=== PATIENT | female | born 1970 ===

== ENCOUNTER 2025-01-28 13:05 | Outpatient (AMB) | payer MEDICARE, MEDICAID, SELFPAY ==
--- OUTSIDE RECORDS SUMMARY | 2024-04-15 12:00 | XMS_ITS ---
Author Organization [facility] Camila hooker Billing Info Address [address] [place] [address] Care Team Providers Care Furnace Operator And Tender Name Role Phone MELISA SONY Unavailable [phone] NITHYA AMBROSIO Unavailable [phone] REASON FOR VISIT Positive SURI my PCP ran. Horrible joint and nerve pain which isnt received by any OTC or drugs likegabapentin. Patients Insurance: Medicare Encounters Encounter Location Date Provider Diagnosis [id number] [place] [facility] [address] [place] [address] [place], [place] [id number] 04/15/2024 NITHYA AMBROSIO Plan Of Treatment No Information Progress Notes * Amber FINN EDOB:[birth year] (54 yo F)Acc No.[id number]:04/15/2024 PROGRESS NOTE Patient: Amber FINN Provider: Omar AMBROSIO MD :1970 A ge:53 Y S ex:Female Date:04/15/2024 [facility][id number] Address:[address] [place], [place] [id number] Subjective: * Chief Complaints: * 1 . Positive SURI my PCP ran. Horrible joint and nerve pain which isnt received by any OTC or drugs like gabapentin. Patients Insurance: Medicare. * Medical History: Objective: * Vitals: Assessment: Plan: * Treatment: * * This progress note has not b een verified nor is it considered complete until locked and signed by the provider. Sign off status: Pending * Provider: Omar AMBROSIO MD Date: 04/15/2024 Generated for Van arriaga/Renae/Cassie on: 1 04:42 PM EDT
--- NOTE | 2025-01-28 13:08 | HO.SPINEOV ---
Vital Signs 01/28/25 13:21 Height 5 ft 5 in Weight 127 lb BMI 21.1 Intake Visit Reasons: LBP radiating darshan leg pain Intake Note: Ms. Castellanos is here today c/o Low back pain that radiate to both legs. Director Of Business Applications Required: No Allergies No Known Allergies Allergy (Verified 01/28/25 13:22) Physical Exam Vital Signs: BMI result Body Mass Index 21.1 Assessment & Plan Assessment & Plan (1) Leg pain: Code(s): M79.606 - Pain in leg, unspecified Category: Medical Plan Amber is a pleasant 54 year old female who was self referred to our practice today for evaluation of low back pain and diffuse pain throughout her bilateral lower extremities. She reports that this began without any known inciting incident around December of last year. When attempting to describe her pain she runs her hands down the back side top and medial aspect of her legs all the way down towards the feet. She also reports some associated numbness on the lateral aspect of both feet. She reports some associated heaviness in her legs, and states that she is only able to walk or stand for about 10-20 minutes before having to sit down and rest. She also reports some tripping when attempting to ambulate but denies any falls. She has been seen by many different medical practitioners for this issue over the course of the last year so. She states that she has seen at least 5 different rheumatologists who do not think she has an autoimmune disorder, 3 different neurologists who told her she likely has peripheral neuropathy, and 1 neurosurgeon who offered her a laminectomy. She reports that her pain primarily worsens with ambulation, and states that she asked to hunch over when walking to help relieve some of her pain. She has attempted to treat this with multiple different prescribed medications including gabapentin, Lyrica, duloxetine, venlafaxine, carbamazepine, Lexapro, nortriptyline, Flexeril, prednisone, Celebrex, meloxicam. All of these medications that she listed have not been helpful for her. She has also attempted azlx-ozq-ycserat ibuprofen which did provide relief for a period of time, but tanked her GFR down to 60 from 100. She has attempted physical therapy, geriatric personal care aide, cortisone injections, acupuncture in effort to treat this. None of the seem to be particularly effective. She has also tried at least another 50-60 other types conservative therapy is which she brought a list of. Examples include IV ketamine, meditation, and hypnosis. PMH: Hypothyroidism, peripheral neuropathy, Raynaud's phenomenon, history of skin cancer with a resection via Mohs procedure, cubital tunnel release on the left-hand side. Social hx: The patient does not smoke, reports no substance use. Medications: Zofran, vitamin D3, cyclobenzaprine, estradiol, eszopiclone, naltrexone, progesterone, thyroid desiccated, tretinoin. Allergies: NKDA. Physical exam: The patient has about 4/5 strength with bilateral iliopsoas testing. The remainder of her upper and lower extremity strength is 5/5. She has no significant sensational deficits to light touch on examination. She ambulates well with a non spastic nonantalgic gait. She uses no assistive devices to ambulate. Her reflexes are 2+ intact diffusely. (-) De La Cruz's, (-) clonus, (-) bilateral straight leg raise, (-) Maicol's, (-) Anna finger test, (-) Lhermitte's. Imaging review: MRI of the lumbar spine completed at [facility] in August of 2024 shows evidence of very mild levoscoliosis, Schmorl's node on superior endplate of L4, mild-moderate right-sided foraminal stenosis at L4-5. Impression: Amber is a pleasant, complicated, 54-year-old female who comes in today for evaluation of low back pain and diffuse lower extremity pain which has been ongoing at least since December of last year. She has been evaluated by many different medical specialties for this issue. She has been told she has peripheral neuropathy. She has been offered a laminectomy from a neurosurgeon. I do not believe that there is any compression seen on her MRI that would warrant neurosurgical intervention. Generally speaking her MRI is fairly unremarkable from a neurosurgical perspective. I encouraged her to continue to try and find a solution for her continued pain, however I do not think neurosurgery will be the answer in his patient's unfortunate case. Thank you for allowing us to care for your patient. The total time spent with this visit with this patient was 65 minutes reviewing history, physical exam, MRI imaging review, and implementation of treatment plan or further diagnostic testing Franco Milan MD,PhD [facility] Coding Level of Care Code New Pt Level 5 (23762) Diagnoses Leg pain M79.606
[2025-01-28 13:21] VITALS: BMI 21.1
--- OUTSIDE RECORDS SUMMARY | 2025-01-28 16:39 | XMS_ITS | Encounter Summary ---
Author Organization [facility] (historical information prior to 01/03/2025 only) Address [address] [place] [address] Care Team Providers Care Roving Or Yarn Color Checker Name Role Phone Patricia Recinos MD Primary Care Provider [phone] Encounter Details Date Type Department Care Team (Late st Contact Info) Description 11/23/2015 Scan Document - View in Chart Hollis Gannon MD [address] [place] [address] Hollis Gannon MD [address] [place] [address] Social History Tobacco Use Types Packs/Day Years Used Date Smoking Tobacco: Never Comments Unknown Sex and Gender Information Value Date Recorded Sex Assigned at Not on file Legal Sex Female 2:49 PM EST Gender Identity Not on file Sexual Orientation Not on file documented as of this encounter Plan of Treatment Not on file documented as of this encounter Visit Diagnoses Not on filedocumented in this encounter Care Teams Roving Or Yarn Color Checker Relationship Specialty Start Date End Date Patricia Recinos MD [address] [place] [address], [facility] [address] [place] [address] PCP - General Family Medicine 11/12/17 documented as of this encounter
--- OUTSIDE RECORDS SUMMARY | 2025-01-28 16:39 | XMS_ITS | Encounter Summary ---
Author Organization [facility] (historical information prior to 01/03/2025 only) Address [address] [place] [address] Care Team Providers Care Senior Reliability Engineer Name Role Phone Patricia Recinos MD Primary Care Provider [phone] Encounter Details Date Type Department Care Team (Late st Contact Info) Description 12/15/2011 Scan Document - View in Chart Hollis Gannon MD [address] [place] [address] [phone] Hollis Gannon MD [address] [place] [address] Social History Tobacco Use Types Packs/Day Years Used Date Smoking Tobacco: Never Assessed Comments Unknown Sex and Gender Information Value Date Recorded Sex Assigned at Not on file Legal Sex Female 2:49 PM EST Gender Identity Not on file Sexual Orientation Not on file documented as of this encounter Plan of Treatment Not on file documented as of this encounter Visit Diagnoses Not on filedocumented in this encounter Care Teams Senior Reliability Engineer Relationship Specialty Start Date End Date Patricia Recinos MD [address] [place] [address], [facility] [address] [place] [address] PCP - General Family Medicine 11/12/17 documented as of this encounter
--- OUTSIDE RECORDS SUMMARY | 2025-01-28 16:39 | XMS_ITS | Encounter Summary ---
Author Organization [facility] (historical information prior to 01/03/2025 only) Address [address] [place] [address] Care Team Providers Care Lamp Inspector Name Role Phone Patricia Recinos MD Primary Care Provider [phone] Encounter Details Date Type Department Care Team (Late st Contact Info) Description 03/01/2010 Scan Document - View in Chart Hollis Gannon MD [address] [place] [address] [phone] Hollis Gannon MD [address] [place] [address] Social History Tobacco Use Types Packs/Day Years [...] on filedocumented in this encounter Care Teams Lamp Inspector Relationship Specialty Start Date End Date Patricia Recinos MD [address] [place] [address], [facility] [address] [place] [address] PCP - General Family Medicine 11/12/17 documented as of this encounter
--- OUTSIDE RECORDS SUMMARY | 2025-01-28 16:39 | XMS_ITS | Encounter Summary ---
Author Organization [facility] (historical information prior to 01/03/2025 only) Address [address] [place] [address] Care Team Providers Care Tack Driller Name Role Phone Patricia Recinos MD Primary Care Provider [phone] Reason for Visit * Reason Comments Med Refill Encounter Details Date Type Department Care Team (Late st Contact Info) Description 05/18/2023 Refill [facility] [address] [place] [address] Arin Lopes NP [address] [place] [phone] Social History Tobacco Use Types Packs/Day Years Used Date Smoking Tobacco: Never Smokeless Tobacco: Never Alcohol Use Standard Drinks/Week Comments No 0 (1 standard drink = 0.6 oz pur e alcohol) Depression Answer Date Recorded Feeling Down, Depressed, or Hopeless 2 02/10/2020 PHQ-9 Total Score 17 02/10/2020 [place] Scale Score: Not on file 0 Comments Unknown Sex and Gender Information Value Date Recorded Sex Assigned at Not on file Legal Sex Female 2:49 PM EST Gender Identity Not on file Sexual Orientation Not on file Occupation Industry Job Start Date Job End Date unemployed Not on file Not on file Not on file documented as of this encounter Miscellaneous Notes * Telephone Encounter - CLEO López - 05/21/2023 10:57 AM EST She should be getting this from endo since she follows with them, we have no recent thyroid blood work (last was 2021) documented in this encounter Plan of Treatment Not on file documented as of this encounter Visit Diagnoses Not on filedocumented in this encounter Care Teams Tack Driller Relationship Specialty Start Date End Date Patricia Recinos MD [address] [place] [address], [address] [place] [address] PCP - General Family Medicine 11/12/17 documented as of this encounter
--- OUTSIDE RECORDS SUMMARY | 2025-01-28 16:39 | XMS_ITS | Encounter Summary ---
Author Organization [facility] (historical information prior to 01/03/2025 only) Address [address] [place] [address] Care Team Providers Care Nicking Machine Operator Name Role Phone Patricia Recinos MD Primary Care Provider [phone] Encounter Details Date Type Department Care Team (Late st Contact Info) Description 03/12/2023 Telephone [facility] [address] [place] [address] Patricia Recinos MD [address] [place] [address] Social History Tobacco Use Types Packs/Day Years Used Date Smoking Tobacco: Never Smokeless Tobacco: Never Alcohol Use Standard Drinks/Week Comments No 0 (1 standard drink = 0.6 oz pur e alcohol) Depression Answer Date Recorded Feeling Down, Depressed, or Hopeless 2 02/10/2020 PHQ-9 Total Score 17 02/10/2020 [place] Scale Score: Not on file 0 Comments [...] encounter Miscellaneous Notes * Telephone Encounter - Caroline Reilly MA - 03/12/2023 4:17 PM EST LVM for the patient, please ask the patient if she received her Lunesta Prescription. May need to call her insurance for a PA [phone] documented in this encounter Plan of Treatment Not on file documented as of this encounter Visit Diagnoses Not on filedocumented in this encounter Care Teams Nicking Machine Operator Relationship Specialty Start Date End Date Patricia Recinos MD [address] [place] [address], [address] [place] [address] PCP - General Family Medicine 11/12/17 documented as of this encounter
--- OUTSIDE RECORDS SUMMARY | 2025-01-28 16:39 | XMS_ITS | Encounter Summary ---
Author Organization [facility] (historical information prior to 01/03/2025 only) Address [address] [place] [address] Care Team Providers Care Farm Management Supervisor Name Role Phone Patricia Recinos MD Primary Care Provider [phone] Encounter Details Date Type Department Care Team ([facility] st Contact Info) Description 09/25/2016 Lab Requisition [facility] Main Lab [address] [place] [address] PROVIDER NOT IN SYSTEM [address] [place] [address] Social History Tobacco Use Types Packs/Day Years Used Date Smoking Tobacco: Never Alcohol Use Standard Drinks/Week Comments No 0 (1 standard drink = 0.6 oz pur e alcohol) Comments Unknown Sex and Gender Information Value Date Recorded Sex Assigned at Not on file Legal Sex Female 2:49 PM EST Gender Identity Not on file Sexual Orientation Not on file documented as of this encounter Plan of Treatment Not on file documented as of this encounter Visit Diagnoses Not on filedocumented in this encounter Care Teams Farm Management Supervisor Relationship Specialty Start Date End Date Patricia Recinos MD [address] [place] [address], [address] [place] [address] PCP - General Family Medicine 11/12/17 documented as of this encounter
--- OUTSIDE RECORDS SUMMARY | 2025-01-28 16:39 | XMS_ITS | Encounter Summary ---
Author Organization [facility] (historical information prior to 01/03/2025 only) Address [address] [place] [address] Care Team Providers Care Director Of Orthopedics Name Role Phone Patricia Recinos MD Primary Care Provider [phone] Encounter Details Date Type Department Care Team (Late st Contact Info) Description 11/07/2012 Scan Document - View in Chart Hollis Gannon MD [address] [place] [address] [phone] Hollis Gannon MD [address] [place] [address] Social History Tobacco Use Types Packs/Day Years [...] on filedocumented in this encounter Care Teams Director Of Orthopedics Relationship Specialty Start Date End Date Patricia Recinos MD [address] [place] [address], [facility] [address] [place] [address] PCP - General Family Medicine 11/12/17 documented as of this encounter
--- OUTSIDE RECORDS SUMMARY | 2025-01-28 16:39 | XMS_ITS | Encounter Summary ---
Author Organization [facility] (historical information prior to 01/03/2025 only) Address [address] [place] [address] Care Team Providers Care Extended Day Teacher Name Role Phone Patricia Recinos MD Primary Care Provider Encounter Details Date Type Department Care Team (Late st Contact Info) Description 01/09/2012 Scan Document - View in Chart Hollis Gannon MD [address] [place] [address] [phone] Hollis Gannon MD [address] [place] [address] Social History Tobacco Use Types Packs/Day Years [...] on filedocumented in this encounter Care Teams Extended Day Teacher Relationship Specialty Start Date End Date Patricia Recinos MD [address] [place] [address], [facility] [address] [place] [address] PCP - General Family Medicine 11/12/17 documented as of this encounter
--- OUTSIDE RECORDS SUMMARY | 2025-01-28 16:39 | XMS_ITS | Encounter Summary ---
Author Organization [facility] (historical information prior to 01/03/2025 only) Address [address] [place] [address] Care Team Providers Care Gasoline Locomotive Crane Operator Name Role Phone Patricia Recinos MD Primary Care Provider [phone] Encounter Details Date Type Department Care Team (Late st Contact Info) Description 08/07/2014 Scan Document - View in Chart Hollis Gannon MD [address] [place] [address] [phone] Hollis Gannon MD [address] [place] [address] Social History Tobacco Use Types Packs/Day Years [...] on filedocumented in this encounter Care Teams Gasoline Locomotive Crane Operator Relationship Specialty Start Date End Date Patricia Recinos MD [address] [place] [address], [facility] [address] [place] [address] PCP - General Family Medicine 11/12/17 documented as of this encounter
--- OUTSIDE RECORDS SUMMARY | 2025-01-28 16:41 | XMS_ITS | Encounter Summary ---
Author Organization [facility] (historical information prior to 01/03/2025 only) Address [address] [place] [address] Care Team Providers Care Ball Winder Name Role Phone Patricia Recinos MD Primary Care Provider [phone] Encounter Details Date Type Department Care Team (Late st Contact Info) Description 09/20/2016 Lab Requisition [facility] Main Lab [address] [place] [address] Caryn Oliveira PA [address] [place] [address], [address] [place] [address] Bitten or stung by nonvenomous insect and other nonvenomous arthropods, initial encounter Social History Tobacco Use Types Packs/Day Years [...] on file documented as of this encounter Procedures Procedure Name Priority Date/Time Associated Diagnosis Comments LYME DISEASE ANTIBODY WITH RFLX TO BLOT (IGG, IGM) Routine 09/20/2016 1:36 PM EDT Bitten or stung by nonvenomous insect and other nonvenomous arthropods, initial encounter documented in this encounter Results * Lyme disease, western blot (09/20/2016 1:36 PM EDT) Progressive Lyme Not indicated 09/22 3:12 PM EDT JORGE PAYNE Lyme AB Screen (total) <0.90 <0.90 Index 09/22/2016 3:12 PM EDT JORGE PAYNE Comment: Reference ranges: Index Interpretation ----- <0.90 Negative 0.90-1.09 Equivocal >1.09 Positive As recommended by the Food and Drug Aministration (FDA), all samples with positive or equivocal results in a Borrelia burgdorferi antibody EIA (screening) will be tested using a blot method. Positive or equivocal screening test results should not be interpreted as truly positive until verified as such using a supplemental assay (e.g., B. burgdorferi blot). The screening test and/or blot for B. burgdorferi antibodies may be falsely negative in early stages of Lyme disease, including the period when erythema migrans is apparent. Blood Venous blood / Unknown Venipuncture / Unknown 09/20/2016 1:36 PM EDT 09/20/2016 6:33 PM EDT us Caryn GALLO LAB BLOOD ORDERABLES Final Result JORGE JANIAJOHNElsa [address] [facility] [address] [place], [place] , [place] documented in this encounter Visit Diagnoses Diagnosis Bitten or stung by nonvenomous insect and other nonvenomous arthropods, initial encounter documented in this encounter Care Teams Ball Winder Relationship Specialty Start Date End Date Patricia Recinos MD [address] [place] [address], [address] [place] [address] PCP - General Family Medicine 11/12/17 documented as of this encounter
--- OUTSIDE RECORDS SUMMARY | 2025-01-28 16:41 | XMS_ITS | Encounter Summary ---
Author Organization [facility] (historical information prior to 01/03/2025 only) Address [address] [place] [address] Care Team Providers Care Linux Unix Administrator Name Role Phone Patricia Recinos MD Primary Care Provider Encounter Details Date Type Department Care Team (Late st Contact Info) Description 12/14/2022 Telephone [facility] [address] [place] [address] Patricia Recinos MD [address] [place] [address] Social History Tobacco Use Types Packs/Day Years Used Date Smoking Tobacco: Never Smokeless Tobacco: Never Alcohol Use Standard Drinks/Week Comments No 0 (1 standard drink = 0.6 oz pur e alcohol) Depression Answer Date Recorded Feeling Down, Depressed, or Hopeless 2 02/10/2020 PHQ-9 Total Score 17 02/10/2020 [place] Scale Score: Not on file 0 Comments [...] Telephone Encounter - Caroline Reilly MA - 12/14/2022 11:17 AM EDT Pt called to book [employer], all set and booked documented in this encounter Plan of Treatment Not on file documented as of this encounter Visit Diagnoses Not on filedocumented in this encounter Care Teams Linux Unix Administrator Relationship Specialty Start Date End Date Patricia Recinos MD [address] [place] [address], [address] [place] [address] PCP - General Family Medicine 11/12/17 documented as of this encounter
--- OUTSIDE RECORDS SUMMARY | 2025-01-28 16:41 | XMS_ITS | Encounter Summary ---
Author Organization [facility] (historical information prior to 01/03/2025 only) Address [address] [place] [address] Care Team Providers Care Automotive Parts Counter Assistant Name Role Phone Patricia Recinos MD Primary Care Provider [phone] Reason for Visit * Reason Onset Date Comments Med Refill 08/02/2022 Encounter Details Date Type Department Care Team (Late st Contact Info) Description 08/02/2022 Refill [facility] [address] [place] [address] Cleopatra Israel PA [address] [place] [address] Social History Tobacco Use Types Packs/Day Years Used Date Smoking Tobacco: Never Smokeless Tobacco: Never Alcohol Use Standard Drinks/Week Comments No 0 (1 standard drink = 0.6 oz pur e alcohol) Depression Answer Date Recorded Feeling Down, Depressed, or Hopeless 2 02/10/2020 PHQ-9 Total Score 17 02/10/2020 Elliott Scale Score: Not on file 0 Comments [...] on filedocumented in this encounter Care Teams Automotive Parts Counter Assistant Relationship Specialty Start Date End Date Patricia Recinos MD [address] [place] [address], [facility] [address] [place] [address] PCP - General Family Medicine 11/12/17 documented as of this encounter
--- OUTSIDE RECORDS SUMMARY | 2025-01-28 16:41 | XMS_ITS | Encounter Summary ---
Author Organization Chela Mykel Vito [facility] Address [address] [place] [address] Care Team Providers Care Technical Marketing Consultant Name Role Phone Alireza Daniel MD Unavailable [phone] Dayna John NP Primary Care Provider [phone] Karen Gonzalez MD Unavailable Rajeev Stevens MD Unavailable [phone] Nichelle Parks MD Unavailable [phone] Unknown, Provider MD Primary Care Provider Unava ilable Encounter Details Date Type Department Care Team (Late Contact Info) Description 07/26/2023 Lab Requisition [facility] Orders Cleopatra Israel PA [address] [address] Social History Tobacco Use Types Packs/Day Years Used Date Smoking Tobacco: Never Smokeless Tobacco: Never Alcohol Use Standard Drinks/Week Comments No 0 (1 standard drink = 0.6 oz pur e alcohol) Comments No Sex and Gender Information Value Date Recorded Sex Assigned at Not on file Legal Sex Female 6:23 AM EST Gender Identity Not on file Sexual Orientation Not on file 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; 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 Not on file Not on file documented as of this encounter Plan of Treatment Upcoming Encounters Date Type Department Care Team (Late Contact Info) Description 02/02/2025 2:15 PM EST Office Visit [facility] Orthopedics [facility] [address] [place] [address] Anton Treviño MD [address] [place] [phone] [phone] (Work) In Person with Physician documented as of this encounter Visit Diagnoses Not on filedocumented in this encounter Care Teams Technical Marketing Consultant Relationship Specialty Start Date End Date Dayna John, AVIONICS SYSTEM ENGINEER [address] [place] [address] PCP - General Family Practice 10/15/18 12/18/24 Unknown, Provider, [address] [place] [address] PCP - General 12/19/24 Alireza Daniel MD [address] [place] [address] Internal Medicine 03/28/12 Karen Gonzalez MD [address] [place] [address] Family Practice 09/01/23 Rajeev Stevens MD [address] [place] [address] Family Practice 07/04/17 Nichelle Parks MD [address] [place] [address] Family Practice 09/01/23 documented as of this encounter
--- OUTSIDE RECORDS SUMMARY | 2025-01-28 16:41 | XMS_ITS | Encounter Summary ---
Author Organization Chela Padron [facility] Address [address] [place] [address] Care Team Providers Care Exchange Consultant Name Role Phone Alireza Daniel MD Unavailable [phone] Karen Gonzalez MD Unavailable Rajeev Stevens MD Unavailable [phone] Nichelle Parks MD Unavailable [phone] Unknown, Provider MD Primary Care Provider Unava ilable Reason for Visit * Reason Comments Medication Refill Encounter Details Date Type Department Care Team ([facility] Contact Info) Description 01/25/2025 Refill [facility], [address] [address] Saul Bowling MD [address] [place] [address] Social History Tobacco Use Types Packs/Day Years Used Date Smoking Tobacco: Never Smokeless Tobacco: Never Alcohol Use Standard Drinks/Week Comments No 0 (1 standard drink = 0.6 oz pur e alcohol) AUDIT C Answer Date Recorded How often have you had a dri nk containing alcohol, in the past year? 0 10/24/2024 Not on file 10/24/2024 How often have you had six o r more drinks on one occasion, in the past year? 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 Not on file Not on file documented as of this encounter Plan of Treatment Upcoming Encounters Date Type Department Care Team (Late st Contact Info) Description 02/02/2025 2:15 PM EST Office Visit [facility] Orthopedics [facility] [address] [place] [address] Anton Treviño MD [address] [place] [phone] (Work) In Person with Physician documented as of this encounter Visit Diagnoses Not on filedocumented in this encounter Care Teams Exchange Consultant Relationship Specialty Start Date End Date Unknown, Provider, [address] [place] [address] PCP - General 12/19/24 Alireza Daniel MD [address] [place] [address] Internal Medicine 03/28/12 Karen Gonzalez MD [address] [place] [address] Family Practice 09/01/23 Rajeev Stevens MD [address] [place] [address] Family Practice 07/04/17 Nichelle Parks MD [address] [place] [address] Family Practice 09/01/23 documented as of this encounter
--- OUTSIDE RECORDS SUMMARY | 2025-01-28 16:41 | XMS_ITS | Encounter Summary ---
Author Organization Chela Padron [facility] Address [address] [place] [address] Care Team Providers Care Ice Sculptor Name Role Phone Alireza Daniel MD Unavailable [phone] Karen Gonzalez MD Unavailable Rajeev Stevens MD Unavailable [phone] Nichelle Parks MD Unavailable [phone] Unknown, Provider MD Primary Care Provider Unava ilable Reason for Visit * Reason Onset Date Comments Medication Refill 01/26/2025 Encounter Details Date Type Department Care Team (Late st Contact Info) Description 01/26/2025 Refill [facility], [address] [address] Hetal Oakes [place] Social History Tobacco Use Types Packs/Day Years [...] 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; 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 Not on file Not on file documented as of this encounter Miscellaneous Notes * Telephone Encounter - Hetal Oakes [place] - 01/26/2025 1:21 PM EDT Pharmacy is requesting a script refill documented in this encounter Plan of Treatment Upcoming Encounters Date Type Department Care Team (Late st Contact Info) Description 02/02/2025 2:15 PM EST [facility] [address] [facility], 2nd [place] [address] Anton Treviño MD [address] [place] [phone] (Work) In Person with Physician documented as of this encounter Visit Diagnoses Not on filedocumented in this encounter Care Teams Ice Sculptor Relationship Specialty Start Date End Date Unknown, Provider, [address] [place] [address] PCP - General 12/19/24 Alireza Daniel MD 2 [place] [address] Internal Medicine 03/28/12 Karen Gonzalez MD [address] [place] [address] Family Practice 09/01/23 Rajeev Stevens MD [address] [place] [address] Family Practice 07/04/17 Nichelle Parks MD [address] [place] [address] Family Practice 09/01/23 documented as of this encounter
--- OUTSIDE RECORDS SUMMARY | 2025-01-28 16:41 | XMS_ITS | Encounter Summary ---
Author Organization Chela Padron [facility] Address [address] [place] [address] Care Team Providers Care Elevator Constructor Name Role Phone Alireza Daniel MD Unavailable [phone] Karen Gonzalez MD Unavailable Rajeev Stevens MD Unavailable [phone] Nichelle Parks MD Unavailable Unknown, Provider MD Primary Care Provider Unava ilable Reason for Visit * Reason Onset Date Comments Medication Refill 01/27/2025 Encounter Details Date Type Department Care Team (Late st Contact Info) Description 01/27/2025 Refill [facility], [address] [address] Patricia Recinos MD [address] [place] [address] Intrinsic eczema (Primary Dx) Social History Tobacco Use Types Packs/Day Years [...] 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, 2nd [place] [address] Anton Treviño MD [address] [phone] (Work) In Person with Physician documented as of this encounter Visit Diagnoses Diagnosis Intrinsic eczema- Primary documented in this encounter Care Teams Elevator Constructor Relationship Specialty Start Date End Date Unknown, Provider, [address] [place] [address] PCP - General 12/19/24 Alireza Daniel MD [address] [place], [place] [phone] Internal Medicine 03/28/12 Karen Gonzalez MD [address] [place] [address] Family Practice 09/01/23 Rajeev Stevens MD [address] [place] [address] Family Practice 07/04/17 Nichelle Parks MD [address] [place] [address] Family Practice 09/01/23 documented as of this encounter
--- OUTSIDE RECORDS SUMMARY | 2025-01-28 16:41 | XMS_ITS | Clinical Summary ---
Author Organization Chelabrandon Padron [facility] Address [address] [place] [address] Care Team Providers Care Shutdown Planner Name Role Phone Alireza Daniel MD Unavailable [phone] Karen Gonzalez MD Unavailable Rajeev Stevens MD Unavailable [phone] Nichelle Parks MD Unavailable [phone] Unknown, Provider MD Primary Care Provider Unava ilable Allergies No known active allergies Medications ARMOUR THYROID 60 mg Tab tablet Take 1 tablet (60 mg total) by mouth daily. 90 tablet 3 05/12/19 22 Active prasterone, dhea, (DHEA) 25 mg Tab Take by mouth. Activ e progesterone (PROMETRIUM) 100 MG capsule Take 1 capsule (100 mg total) by mouth at bedtime. 90 capsule 3 11/11/19 23 Active estradioL (CLIMARA) 0.05 mg/[address] 1 patch on the skin once a week. 12 patch 3 06/25/19 24 Active cyanocobalamin (vitamin B-12) 50 mcg tablet Take 1 tablet (50 mcg total) by mouth daily. Active bromelains 100 mg Chew Chew. Active omega-3 fatty acids/fish oil (fish oil-omega-3 fatty acids) 300-1,000 mg capsule Take 2 capsules (2 g total) by mouth daily. Active celecoxib (CeleBREX) 50 MG capsule Take 1 capsule (50 mg total) by mouth 2 times a day. Active Boswellia anali-turmer ic xt 100-500 mg cap Take by mouth. Activ e eszopiclone (LUNESTA) 2 MG TabIndications :Sleep disorder, unspecified TAKE 1 TABLET BY MOUTH NIGHTLY. TAKE IMMEDIATELY BEFORE BEDTIME 30 tablet 01/15/20 25 Active tretinoin (RETIN-A) 0.1 % creamIndicatio ns:Intrinsic eczema Apply topically at bedtime. 20 g 1 01/28/20 25 Active cyclobenzaprin e (FLEXERIL) 10 MG tabletIndicati ons:Polyneurop athy, unspecified,Ri ght shoulder pain, unspecified chronicity Take 1 tablet (10 mg total) by mouth as needed for muscle spasms. 20 tablet 01/28/20 25 Active eszopiclone (LUNESTA) 2 MG Tab Take 1 tablet (2 mg total) by mouth at bedtime. 15 tablet 0 03/05/20 15 025 Discontinued cyclobenzaprin e (FLEXERIL) 10 MG tablet TAKE 1/2 TO 1 TABLET BY MOUTH DAILY DIRECTED 20 tablet 01/03/20 19 025 Discontinued(R eorder) tretinoin (RETIN-A) 0.1 % cream APPLY TOPICALLY TO THE AFFECTED AREA ONE TIME AT NIGHT 025 Discontinued(R eorder) Active Problems Problem Noted Date Diagnosed Date Hypoglycemia 06/20/2022 Menopausal symptoms 06/20/2022 Post-menopause on HRT (hormone replacement thera py) 12/17/2017 Intrinsic eczema 08/04/2016 Vitamin D deficiency 08/04/2016 Hereditary hemochromatosis 08/04/2016 Overview (01/16/2022): Question history of Insomnia 03/03/2014 Hypothyroidism 02/09/2014 Anxiety 07/28/2012 Depression 07/16/2012 Resolved Problems Problem Noted Date Diagnosed Date Resolved Date Menopause 08/08/2016 01/16/2022 Decreased testosterone level 02/29/2016 06/20/2022 Mixed emotional features as adjustment reaction 01/30/2014 01/16/2022 Encounters Date Type Department Care Team Description 01/27/2025 [facility], [address] [address] Patricia Recinos MD Polyneuropathy, unspecified (Primary Dx); Right shoulder pain, unspecified chronicity 01/27/2025 Refill [facility], [address] [address] Patricia Recinos MD Intrinsic eczema (Primary Dx) 01/26/2025 Refill [facility], [address] [address] Hetal Oakes [place] 01/25/2025 Refill [facility], [address] [address] Saul Bowling MD 01/11/2025 Refill [facility], [address] [address] Saul Bowling MD Sleep disorder, unspecified from Last 3 Months Immunizations Immunization Administration Dates Next Due Hep B, Unspecified 12/18/2003 Hepatitis B 11/06/2002 PPD Test 09/08/2015 TD Preservative Free 10/10/2006,11/09/1995 Tdap Vaccine (BOOSTRIX/ADACEL) 10/17/2012 Family History Medical History Relation Comments Prostate cancer Father Skin cancer Maternal Aunt melanoma Hypertension Mother Osteoporosis Mother Skin cancer Paternal Grandfather melanoma Skin cancer Paternal Uncle melanoma Relation Status Comments Father Alive Maternal Aunt Mother Alive Paternal Grandfather Paternal Uncle Social History Tobacco Use Types Packs/Day Years [...] 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; 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 Not on file Not on file Last Filed Vital Signs Vital Sign Reading Time Taken Comments Blood Pressure 127/84 03/19/2024 2:52 PM EST Pulse 102 03/19/2024 2:52 PM EST Temperature 36.7 C (98.1 F) 02/20/2024 9:57 AM EST Respiratory Rate 16 02/23/2018 11:43 AM EST Oxygen Saturation 97% 03/19/2024 2:52 PM EST Inhaled Oxygen Concentration - - Weight 55.2 kg (121 lb 9.6 oz) 10/24/2024 2:16 P M EDT Height 165.1 cm (5' 5 ) 10/24/2024 2:16 PM EDT Body Mass Index 20.24 10/24/2024 2:16 PM EDT Plan of Treatment Upcoming Encounters Date Type Department Care Team (Late st Contact Info) Description 02/02/2025 2:15 PM EST Office Visit [facility] Orthopedics [facility] [address] [facility], 2nd [place] [address] Anton Treivño MD [address] [place] [phone] (Work) In Person with Physician Health Maintenance Due Date Last Done Comments Depression Screening 1974 Hepatitis C Screening 1988 Pap Smear 06/22/1991 Cervical Cancer Screening 2000 HPV/Cotest 2000 Medicare Initial AWV [id number] 05/31/2008 Breast Cancer Screening 2010 CT Colonography 06/22/2015 Colonoscopy 06/22/2015 Colorectal Cancer Screening 06/22/2015 FIT 06/22/2015 FOBT 06/22/2015 Multitarget Stool DNA (Cologuard) 06/22/2015 Sigmoidoscopy 06/22/2015 Pneumococcal Vaccine: 50+ Years (1 of 1 - PCV) 2020 Zoster Vaccine (1 of 2) 2020 DTaP,Tdap,and Td Vaccines (4 - Td or Tdap) 10/17/2022 10/17/2012, 10/10/2006, 11/09/1995 TSH Level 07/25/2024 07/26/2023, 12/31, 02/04/2018, Additional history exists COVID-19 Vaccine ( season) 2024 08/31/2021 Influenza Vaccine (#1) 2024 Blood Pressure 03/19/2025 03/19/2024 Lipid Panel 07/25/2028 07/26/2023, 09/08/2015 Meningococcal B Vaccines Aged Out No longer eligible based on patient's age to complete this topic Meningococcal Vaccines Aged Out No lo nger eligible based on patient's age to complete this topic Procedures Procedure Name Priority Date/Time Associated Diagnosis Comments LIPID PANEL Routine 07/26/2023 3:59 PM EDT Encounter for screening, unspecified TSH REFLEX FRT4,T3 Routine 07/26/2023 3: 59 PM EDT Encounter for screening, unspecified [ICD-10-CM] from Last 3 Months or Most Recently Relevant to Health Maintenance Results * Thyroid Profile (07/26/2023 3:59 PM EDT) TSH 2.86 0.35 - 4.94 uIU/mL 07/27/2023 12:30 PM EDT [facility] Blood PERIPHERAL NERVOUS SYSTEM STRUCTURE / Unknown 07/26/2023 3:59 PM EDT 07/26/2023 8:00 PM EDT us Patriica Recinos MD LAB BLOOD ORDERABLES Final R esult [facility] [address] [place] [address], * Lipid Panel (07/26/2023 3:59 PM EDT) Cholesterol 176 <200 mg/dL [facility] [id number] 07/26/2023 9:07 PM EDT [facility] Triglycerides 70 <150 mg/dL [facility] [id number] 07/26/2023 9:07 PM EDT [facility] HDL Cholesterol 61 >40 mg/dL [facility] [id number] 07/26/2023 9:07 PM EDT [facility] LDL Cholesterol 101 <130 mg/dL [facility] [id number] 07/26/2023 9:07 PM EDT [facility] Comment: LDL-C Treatment Targets LDL-C mg/dL High Risk (20%) <100 optional for very high risk (optional <70) Mod Risk (2 high factors <20%) <130 optional for very high risk (optional <100) Low Risk (0-1 Risk factor) <160 Non-HDL Cholesterol 115 <160 mg/dL [facility] [id number] 07/26/2023 9:07 PM EDT [facility] Comment: NON-HDL-c Treatment Targets Non-HDL C, mg/dL High Risk (20%) <130 Optional for very high risk (optional <100) Mod Risk (2 high factors <20%) <160 Optional for very high risk (optional <130) Low Risk (0-1 Risk Factor) <190 NON-HDL Chol= Total Cholesterol-HDL Chol goal <160 VLDL Cholesterol 14 8 - 71 mg/dL [facility] [id number] 07/26/2023 9:07 PM EDT [facility] Ratio Chol/HDL 2.9 0.0 - 4.4 [facility] [id number] 07/26/2023 9:07 PM EDT [facility] Comment: Risk Ratio Estimate 1/2 Avg. 2X 3X Male 3.4 5.0 9.6 23.4 Female 3.4 4.4 7.1 11.0 Blood PERIPHERAL NERVOUS SYSTEM STRUCTURE / Unknown 07/26/2023 3:59 PM EDT 07/26/2023 8:00 PM EDT us Patricia Recinos MD LAB BLOOD ORDERABLES Final R esult [facility] [address] [place] [address], from Last 3 Months or Most Recently Relevant to Health Maintenance Insurance MEDICARE Member Subscriber Plan / Payer (Ef fective 2007-Present) Name:Amber Castellanos Member ID:[id number] Relation to Subscriber:Self Name:Amber Castellanos Subscriber ID:[id number] Payer ID:Not on file Group ID:Not on file Type:Traditional / Indemnity Address: [address] [place] [address] [place] [address] MEDICARE Advance Directives Documents on File Type Date Recorded Patient Movable Bulkhead Installer Expl anation DNR Documentation 06/12/2024 9:06 AM Docum ent (17).PDF MOLST/POLST 06/12/2024 9:06 AM Document ( 11).PDF Health Care Proxy 06/03/2024 6:47 PM Docume nt (13).PDF MOLST/POLST 06/03/2024 6:44 PM Document (1 1).PDF DNR Documentation 06/03/2024 6:43 PM Docume nt (17).PDF Health Care Proxy 03/05/2024 1:49 PM [place]IS: [place] Health Care Proxy MOLST/POLST 03/05/2024 1:45 PM LUIS: MOLST [place] Medical Orders for Life-Sustaning Treatment Health Care Proxy 01/19/2022 1:33 PM Heal th Care Proxy Healthcare Agents on File Name Relationship Healthcare Agent [facility] Communication Eddie Romero Father Health Care Agent Care Teams Shutdown Planner Relationship Specialty Start Date End Date Unknown, Provider, [address] [place] [address] PCP - General 12/19/24 Alireza Daniel MD [address] [place] [address] Internal Medicine 03/28/12 Karen Gonzalez MD [address] [place] [address] Family Practice 09/01/23 Rajeev Stevens MD [address] [place] [address] Family Practice 07/04/17 Nichelle Parks MD [address] [place] [address] Family Practice 09/01/23
--- OUTSIDE RECORDS SUMMARY | 2025-01-28 16:41 | XMS_ITS | Encounter Summary ---
Author Organization [facility] Address [address] [place] [address] Care Team Providers Care Airport Ramp Agent Name Role Phone Ulysses Pal Primary Care Provider [phone] Araceli Rodriguez SYSTEMS SUPPORT OFFICER Unavailable [phone] Venessa Tracy HEMATOLOGIST Unavailable Encounter Details Date Type Department Care Team (Late st Contact Info) Description 11/14/2024 Orders Only [facility] [address] [place] [address] Ulysses Pal PA [address] [place] [address] Social History Tobacco Use Types Packs/Day Years Used Date Smoking Tobacco: Never Passive Smoke Exposure: Past Smokeless Tobacco: Never Alcohol Use Standard Drinks/Week Comments No 0 (1 standard drink = 0.6 oz pur e alcohol) PHQ-2 Answer Date Recorded Patient Health Questionnaire-2 Score 2 03/03/2024 PHQ-9 Answer Date Recorded Patient Health Questionnaire-9 Score 12 03/03/2024 Comments No Sex and Gender Information Value Date Recorded Sex Assigned at Female 12/28/2023 11:03 AM EDT Legal Sex Female 2:37 PM EDT Gender Identity Female 12/28/2023 11:03 AM EDT Sexual Orientation Not on file documented as of this encounter Plan of Treatment Upcoming Encounters Date Type Department Care Team (Latest Contact Info) Description 02/17/2025 1:00 PM EST Consult (Initial) [facility] [address] [place] [address] Mirna Butts NP [address] [place] [address] urinary freqancy, burning, incontinence, numbness, prolapse 03/04/2025 4:00 PM EST Office Visit [facility] Orthopedic Surgery [address] [facility] [address] [place] [address] Ildefonso Knox MD [address] [place] [address] Sy TPI 3 month l/s 12/03 documented as of this encounter Visit Diagnoses Diagnosis Dysuria documented in this encounter Care Teams Airport Ramp Agent Relationship Specialty Start Date End Date Ulysses Pal PA [address] [place] [address] PCP - General Internal Medicine 12/28/23 Araceli Rodriguez, [facility] [address] [place] [address] Partner 02/11/24 Venessa Tracy NP [address] [place] [address] Partner 04/07/24 documented as of this encounter
--- OUTSIDE RECORDS SUMMARY | 2025-01-28 16:41 | XMS_ITS | Encounter Summary ---
Author Organization [facility] (historical information prior to 01/03/2025 only) Address [address] [place] [address] Care Team Providers Care High School Science Teacher Name Role Phone Patricia Recinos MD Primary Care Provider [phone] Encounter Details Date Type Department Care Team (Late st Contact Info) Description 09/25/2016 Billing Encounter [facility] [address] [place] [address] Hollis Doll MD [address] [place] [address] Social History Tobacco Use Types Packs/Day Years [...] on filedocumented in this encounter Care Teams High School Science Teacher Relationship Specialty Start Date End Date Patricia Recinos MD [address] [place] [address], [address] [place] [address] PCP - General Family Medicine 11/12/17 documented as of this encounter
--- OUTSIDE RECORDS SUMMARY | 2025-01-28 16:41 | XMS_ITS | Encounter Summary ---
Author Organization [facility] (historical information prior to 01/03/2025 only) Address [address] [place] [address] Care Team Providers Care Butter Production Supervisor Name Role Phone Patricia Recinos MD Primary Care Provider [phone] Encounter Details Date Type Department Care Team (Late st Contact Info) Description 09/25/[address] [facility] Main Lab [address] [place] [phone] PROVIDER NOT IN SYSTEM [address] [place] [address] Pcp, None, [address] [place] [address] Disorder of pituitary gland (CMS/HCC) Social History Tobacco Use Types Packs/Day Years [...] Procedure Name Priority Date/Time Associated Diagnosis Comments GOLD TOP Routine 09/25/2016 5:30 PM EDT Disorder of pituitary gland (CMS/HCC) RED TOP Routine 09/25/2016 5:30 PM EDT Disorder of pituitary gland (CMS/HCC) VITAMIN D 25 HYDROXY Routine 09/25/2016 5:30 PM EDT Disorder of pituitary gland (CMS/HCC) PROLACTIN Routine 09/25/2016 5:30 PM EDT Disorder of pituitary gland (CMS/HCC) DHEA-SULFATE Routine 09/25/2016 5:30 PM EDT Disorder of pituitary gland (CMS/HCC) ESTRADIOL Routine 09/25/2016 5:30 PM EDT Disorder of pituitary gland (CMS/HCC) THYROGLOBULIN ANTIBODIES Routine 09/25/2016 5:30 PM EDT Disorder of pituitary gland (CMS/HCC) TESTOSTERONE, FREE (DIALYSIS) AND TOTAL, MS Routine 09/25/2016 5:30 PM EDT Disorder of pituitary gland (CMS/HCC) T3, FREE Routine 09/25/2016 5:30 PM EDT Disorder of pituitary gland (CMS/HCC) TSH WITH REFLEX Routine 09/25/2016 5:30 PM EDT Disorder of pituitary gland (CMS/HCC) T4, FREE Routine 09/25/2016 5:30 PM EDT Disorder of pituitary gland (CMS/HCC) LUTEINIZING HORMONE Routine 09/25/2016 5 :30 PM EDT Disorder of pituitary gland (CMS/HCC) FOLLICLE STIMULATING HORMONE Routine 09/25/2016 5:30 PM EDT Disorder of pituitary gland (CMS/HCC) HC HEPATIC FUNCTION PANEL Routine 09/25/2016 5:30 PM EDT Disorder of pituitary gland (CMS/HCC) BASIC METABOLIC PANEL Routine 09/25/2016 5:30 PM EDT Disorder of pituitary gland (CMS/HCC) documented in this encounter Results * Red Top (09/25/2016 5:30 PM EDT) Blood Venous blood / Unknown 09/25/2016 5:30 PM EDT 09/25/2016 5:30 PM EDT us None Pcp LAB BLOOD ORDERABLES Final Resul t [facility] [address] [place] [address], [place] [phone] * Gold Top (09/25/2016 5:30 PM EDT) Blood Venous blood / Unknown 09/25/2016 5:30 PM EDT 09/25/2016 5:30 PM EDT us None Pcp MD LAB BLOOD ORDERABLES Final Resul t Performing Organization Address City/[facility]/ZIP Co de Phone Number [facility] [address] [place] [address], [place] [phone] * Vitamin D 25 hydroxy (09/25/2016 5:30 PM EDT) VITAMIN D 25 HYDROXY 45 30 - 100 ng/mL 09/25/2016 6:27 PM EDT [facility] Blood Venous blood / Unknown 09/25/2016 5:30 PM EDT 09/25/2016 5:30 PM EDT us None Pcp MD LAB BLOOD ORDERABLES Final Resul t Performing Organization Address [facility] Co de Phone Number [facility] [address] [place] [address], [place] [phone] * TSH (09/25/2016 5:30 PM EDT) Thyroid Stimulating Hormone 1.400 0.465 - 4.68 uIU/mL 09/25/2016 6:41 PM EDT [facility] Blood Venous blood / Unknown 09/25/2016 5:30 PM EDT 09/25/2016 5:30 PM EDT us None Pcp MD LAB BLOOD ORDERABLES Final Resul t Performing Organization Address [facility] Co de Phone Number [facility] [address] [place] [address], [place] [phone] * Anti-thyroglobulin antibody (09/25/2016 5:30 PM EDT) Thyroglobulin Abs <1 <=1 IU/mL 017 7:44 AM EDT JORGE PAYNE Blood Venous blood / Unknown 09/25/2016 5:30 PM EDT 09/25/2016 5:30 PM EDT us None Pcp LAB BLOOD ORDERABLES Final Resul t Performing Organization Address City/[facility]/ZIP Co de Phone Number JOR[facility] PAYNE [address] [facility] [place] [place] [address], [place] * Prolactin (09/25/2016 5:30 PM EDT) PROLACTIN 19.9 3 - 31 ng/mL 09/25/2016 6:27 PM EDT [facility] Blood Venous blood / Unknown 09/25/2016 5:30 PM EDT 09/25/2016 5:30 PM EDT us None Pcp LAB BLOOD ORDERABLES Final Resul t Performing Organization Address [facility] de Phone Number [facility] [address] [place] [address], [place] [phone] * Follicle stimulating hormone (09/25/2016 5:30 PM EDT) FSH 10.10 mIU/mL 09/25/2016 6:27 PM EDT [facility] Comment: FSH Reference Ranges 1.98 - 11.6 Desiree/mL (Normal Folliculary) 5.14 - 23.4 mIU/mL (Normal Midcyle Peak) 1.38 - 9.58 mIU/mL (Normal Luteal Phase) 21.5 - 131 mIU/mL (Post Menopausal) Blood Venous blood / Unknown 09/25/2016 5:30 PM EDT 09/25/2016 5:30 PM EDT us None Pcp LAB BLOOD ORDERABLES Final Resul t Performing Organization Address [facility]/ZIP Co de Phone Number [facility] [address] [place] [address], [place] [phone] * Estradiol (09/25/2016 5:30 PM EDT) [facility] ESTRADIOL 34.95 pg/mL 09/25/2016 6:41 PM EDT [facility] Comment: Estradiol Reference range: 26.6 - 161 pg/mL (Normal Folliculary) 187 - 382 pg/mL (Normal Pre-Ovulatory Peak) 32.7 - 201 pg/mL (Normal Luteal Phase) 5.37 - 38.4 pg/mL (Postmenopausal) Drugs of estradiol derivatives can interfere with estradiol measurement by immunoassay, resulting in falsely elevated estradiol results. (As noted in the Vitros E2 instructions for use) Blood Venous blood / Unknown 09/25/2016 5:30 PM EDT 09/25/2016 5:30 PM EDT us None Pcp LAB BLOOD ORDERABLES Final Resul t [facility] [address] [place] [address], [place] [phone] * Hepatic function panel (09/25/2016 5:30 PM EDT) [facility] Protein, Total 6.8 6.3 - 8.2 g/dL 09/25/2016 6:08 PM EDT [facility] ALBUMIN 4.2 3.5 - 5.0 g/dL 09/25/2016 6:08 PM EDT [facility] Bilirubin Total 0.7 0.2 - 1.3 mg/dL 09/25/2016 6:08 PM EDT [facility] BILIRUBIN DIRECT 0.2 0.0 - 0.4 mg/dL 09/25/2016 6:08 PM EDT [facility] AST (SGOT) 32 15 - 46 U/L 09/25/2016 6:08 PM EDT [facility] ALT 32 13 - 69 U/L 09/25/2016 6:08 PM EDT [facility] ALKALINE PHOSPHATASE 78 38 - 126 U/L 09/25/2016 6:08 PM EDT [facility] Blood Venous blood / Unknown 09/25/2016 5:30 PM EDT 09/25/2016 5:30 PM EDT us None Pcp LAB BLOOD ORDERABLES Final Resul t Performing Organization Address City/[facility]/ZIP Co de Phone Number [facility] [address] [place] [address], [place] [phone] * (ABNORMAL) Basic metabolic panel (09/25/2016 5:30 PM EDT) Sodium 140 137 - 145 mmol/L 09/25/2016 6:08 PM EDT [facility] Potassium 4.3 3.5 - 5.1 mmol/L 09/25/2016 6:08 PM EDT [facility] CHLORIDE 102 98 - 107 mmol/L 09/25/2016 6:08 PM EDT [facility] CARBON DIOXIDE, TOTAL 27.0 22.0 - 30.0 mmol/L 09/25/2016 6:08 PM EDT [facility] ANION GAP 11.0 6 - 14 09/25/2016 6:08 PM EDT [facility] GLUCOSE 80 70 - 99 mg/dL 09/25/2016 6:08 PM EDT [facility] BUN 22(H) 7 - 17 mg/dL 09/25/2016 6:08 PM EDT [facility] CREATININE 0.9 0.5 - 1.0 mg/dL 09/25/2016 6:08 PM EDT [facility] GFR >60 09/25/2016 6:08 PM EDT [facility] Comment: eGFR Reference Range: > 60 mL/min/1.73 Sq meter In Americans the eGFR should be multiplied by 1.212. CALCIUM 9.4 8.3 - 10.3 mg/dL 09/25/2016 6:08 PM EDT [facility] Blood Venous blood / Unknown 09/25/2016 5:30 PM EDT 09/25/2016 5:30 PM EDT us None Pcp LAB BLOOD ORDERABLES Final Resul t [facility] [address] [place] [address], [place] [phone] * Testosterone, free, total (09/25/2016 5:30 PM EDT) Pathologist [facility] % Free Testosterone 1.3 0.1 - 6.4 pg/mL 09/27/2016 7:42 PM EDT J[facility] PAYNE Comment: This test was developed and its analytical performance characteristics have been determined by [employer] [place]. It has not been cleared or approved by the U.S. Food and Drug Administration. This assay has been validated pursuant to the CLIA regulations and is used for clinical purposes. Testosterone, Total, MS 20 2 - 45 ng/dL 09/27/2016 7:42 PM EDT [facility] PAYNE Comment: For more information on this test, go to http://education.[employer]/faq/ TotalTestosteroneLCMSMS This test was developed and its analytical performance characteristics have been determined by [employer] [place] [place]. It has not been cleared or approved by the U.S. Food and Drug Administration. This assay has been validated pursuant to the CLIA regulations and is used for clinical purposes. Blood Venous blood / Unknown 09/25/2016 5:30 PM EDT 09/25/2016 5:30 PM EDT us None Pcp LAB BLOOD ORDERABLES Final Resul t JORGE PAYNE [address] [facility] [address] [place], [place] , [place] * T4, free (09/25/2016 5:30 PM EDT) Pathologist [facility] Free T4 0.95 0.78 - 2.19 ng/dL 09/25/2016 6:26 PM EDT [facility] Blood Venous blood / Unknown 09/25/2016 5:30 PM EDT 09/25/2016 5:30 PM EDT us None Pcp MD LAB BLOOD ORDERABLES Final Resul t [facility] [address] [place] [address], * T3, free (09/25/2016 5:30 PM EDT) T3, Free 3.07 2.77 - 5.27 pg/mL 09/25/2016 6:34 PM EDT [facility] Blood Venous blood / Unknown 09/25/2016 5:30 PM EDT 09/25/2016 5:30 PM EDT us None Pcp MD LAB BLOOD ORDERABLES Final Resul t Performing Organization Address City/[facility]/ZIP Co de Phone Number [facility] [address] [place] [address], * DHEA-sulfate (09/25/2016 5:30 PM EDT) Pathologist [facility] DHEA Sulfate 102 19 - 231 mcg/dL 09/27/2016 1:23 PM EDT [facility] PAYNE Comment: DHEA-S values fall with advancing age. For reference, the reference intervals for 31-40 year old patients are: Female 23-266 mcg/dL and Male 106-464 mcg/dL. Blood Venous blood / Unknown 09/25/2016 5:30 PM EDT 09/25/2016 5:30 PM EDT us None Pcp LAB BLOOD ORDERABLES Final Resul t Performing Organization Address [facility] de Phone Number JORGE DYKESJOHNElsa [address] [facility] [address] [place], [place] , * Luteinizing hormone (09/25/2016 5:30 PM EDT) Luteinizing Hormone 4.5 mIU/mL 09/25/2016 6:27 PM EDT [facility] Comment: LH Reference Ranges 2.58 - 12.1 mIU/mL (Normal Follicular) 27.3 - 96.9 mIU/mL (Normal Midcycle Peak) 0.833 - 15.5 mIU/mL (Normal Luteal Phase) 13.1 - 86.5 mIU/mL (Post Menopausal) Blood Venous blood / Unknown 09/25/2016 5:30 PM EDT 09/25/2016 5:30 PM EDT us None Pcp MD LAB BLOOD ORDERABLES Final Resul t [facility] [address] [place] [address], documented in this encounter Visit Diagnoses Diagnosis Disorder of pituitary gland (CMS/HCC) Unspecified disorder of the pituitary gland and its hypothalamic control documented in this encounter Care Teams Butter Production Supervisor Relationship Specialty Start Date End Date Patricia Recinos MD [address] [place] [address], [address] [place] [address] PCP - General Family Medicine 11/12/17 documented as of this encounter
--- OUTSIDE RECORDS SUMMARY | 2025-01-28 16:41 | XMS_ITS | Encounter Summary ---
Author Organization [facility] Address [address] [place] [address] [address] Care Team Providers Care Ecommerce Project Manager Name Role Phone Alireza Daniel Md Primary Care Provider [phone] Poc, Non [facility] Pcp Or Primary Care Provider Esperanza vailable Encounter Details Date Type Department Care Team (Late st Contact Info) Description 10/26/2016 [facility] Obstetrics and Gynecology [address] [place] [phone] Obg Social History Tobacco Use Types Packs/Day Years Used Date Smoking Tobacco: Never Smokeless Tobacco: Never Alcohol Use Standard Drinks/Week Comments No 0 (1 standard drink = 0.6 oz pur e alcohol) Comments No Sex and Gender Information Value Date Recorded Sex Assigned at Female 04/25/2021 1:52 PM EST Legal Sex Female 4:27 AM EDT Gender Identity Female 04/25/2021 1:52 PM EST Sexual Orientation Straight 01/06/2022 5: 50 PM EDT documented as of this encounter Plan of Treatment Not on file documented as of this encounter Visit Diagnoses Not on filedocumented in this encounter Care Teams Ecommerce Project Manager Relationship Specialty Start Date End Date Alireza Daniel MD [address] [place] [address] PCP - General Internal Medicine 03/18/12 06/10/22 Poc, Non [facility] Pcp Or PCP - General 06/11/22 documented as of this encounter
--- OUTSIDE RECORDS SUMMARY | 2025-01-28 16:41 | XMS_ITS | Encounter Summary ---
Author Organization [facility] (historical information prior to 01/03/2025 only) Address [address] [place] [address] Care Team Providers Care Industrial Chemist Name Role Phone Patricia Recinos MD Primary Care Provider [phone] Encounter Details Date Type Department Care Team (Late st Contact Info) Description 09/25/2016 Scan Document - View in Chart Hollis Gannon MD [address] [place] [address] [phone] Hollis Gannon MD [address] [place] [phone] Social History Tobacco Use Types Packs/Day Years [...] on filedocumented in this encounter Care Teams Industrial Chemist Relationship Specialty Start Date End Date Patricia Recinos MD [address] [place] [address], [address] [place] [address] PCP - General Family Medicine 11/12/17 documented as of this encounter
--- OUTSIDE RECORDS SUMMARY | 2025-01-28 16:41 | XMS_ITS | Encounter Summary ---
Author Organization [facility] Address [address] [place] [address] [address] Care Team Providers Care Display Screen Fabricator Name Role Phone Alireza Daniel Md Primary Care Provider [phone] Poc, Non [facility] Pcp Or Primary Care Provider Esperanza vailable Encounter Details Date Type Department Care Team (Late st Contact Info) Description 12/26/2016 [facility] Obstetrics and Gynecology [address] [place] [phone] Obg Social History Tobacco Use Types [...] on filedocumented in this encounter Care Teams Display Screen Fabricator Relationship Specialty Start Date End Date Alireza Daniel MD [address] [place] [address] PCP - General Internal Medicine 03/18/12 06/10/22 Poc, Non [facility] Pcp Or PCP - General 06/11/22 documented as of this encounter
--- OUTSIDE RECORDS SUMMARY | 2025-01-28 16:41 | XMS_ITS | Encounter Summary ---
Author Organization [facility] (historical information prior to 01/03/2025 only) Address [address] [place] [address] Care Team Providers Care Senior Software Tester Name Role Phone Patricia Recinos MD Primary Care Provider [phone] Encounter Details Date Type Department Care Team (Late st Contact Info) Description 11/04/2018 Procedure Pass [facility] MRI [address] [place] [phone] Social History Tobacco Use Types Packs/Day Years [...] filedocumented in this encounter Care Teams Senior Software Tester Relationship Specialty Start Date End Date Patricia Recinos MD [address] [place] [address], [address] [place] [address] PCP - General Family Medicine 11/12/17 documented as of this encounter
--- OUTSIDE RECORDS SUMMARY | 2025-01-28 16:41 | XMS_ITS | Encounter Summary ---
Author Organization [facility] (historical information prior to 01/03/2025 only) Address [address] [place] [address] Care Team Providers Care It Applications Analyst Name Role Phone Patricia Recinos MD Primary Care Provider Reason for Visit * Reason Onset Date Comments Med Refill 04/19/2022 Encounter Details Date Type Department Care Team (Late st Contact Info) Description 04/19/2022 Refill [facility] [address] [place] [address] Sowmya Ramírez MD [address] [place] [phone] Social History Tobacco Use Types Packs/Day Years Used Date Smoking Tobacco: Never Smokeless Tobacco: Never Alcohol Use Standard Drinks/Week Comments No 0 (1 standard drink = 0.6 oz pur e alcohol) Depression Answer Date Recorded Feeling Down, Depressed, or Hopeless 2 02/10/2020 PHQ-9 Total Score 17 02/10/2020 [place] Scale Score: Not on file 0 Comments [...] on filedocumented in this encounter Care Teams It Applications Analyst Relationship Specialty Start Date End Date Patricia Recinos MD [address] [place] [address] [address] [place] [address] PCP - General Family Medicine 11/12/17 documented as of this encounter
--- OUTSIDE RECORDS SUMMARY | 2025-01-28 16:41 | XMS_ITS | Encounter Summary ---
Author Organization [facility] (historical information prior to 01/03/2025 only) Address [address] [place] [address] Care Team Providers Care Structures Technician Name Role Phone Patricia Recinos MD Primary Care Provider [phone] Encounter Details Date Type Department Care Team (Late st Contact Info) Description 03/09/2022 [facility] [address] [place] [address] Patricia Recinos MD [address] [place] [address] Social History Tobacco Use Types Packs/Day Years Used Date Smoking Tobacco: Never Smokeless Tobacco: Never Alcohol Use Standard Drinks/Week Comments No 0 (1 standard drink = 0.6 oz pur e alcohol) Depression Answer Date Recorded Feeling Down, Depressed, or Hopeless 2 02/10/2020 PHQ-9 Total Score 17 02/10/2020 [place] Scale Score: Not on file 0 Comments Unknown Sex and Gender Information Value Date Recorded Sex Assigned at Not on file Legal Sex Female 2:49 PM EST Gender Identity Not on file Sexual Orientation Not on file Occupation Industry Job Start Date Job End Date unemployed Not on file Not on file Not on file COVID-19 Exposure Response Date Recorded In the last 10 days, have yo u been in contact with someone who was confirmed or suspected to have Coronavirus/COVID-19? No / Unsure 02/08/2022 11:07 AM EST documented as of this encounter Plan of Treatment Not on file documented as of this encounter Visit Diagnoses Not on filedocumented in this encounter Care Teams Structures Technician Relationship Specialty Start Date End Date Patricia Recinos MD [address] [place] [address], [facility] [address] [place] [address] PCP - General Family Medicine 11/12/17 documented as of this encounter
--- OUTSIDE RECORDS SUMMARY | 2025-01-28 16:41 | XMS_ITS | Encounter Summary ---
Author Organization [facility] (historical information prior to 01/03/2025 only) Address [address] [place] [address] Care Team Providers Care Settlement Technician Name Role Phone Patricia Recinos MD Primary Care Provider [phone] Reason for Visit * Reason Comments Med Refill Encounter Details Date Type Department Care Team ([facility] st Contact Info) Description 03/24/2022 Refill [facility] [address] [place] [address], [address] [place] [address] Caryn Oliveira PA [address] [place] [address], [address] [place] [address] Social History Tobacco Use Types Packs/Day Years Used Date Smoking Tobacco: Never Smokeless Tobacco: Never Alcohol Use Standard Drinks/Week Comments No 0 (1 standard drink = 0.6 oz pur e alcohol) Depression Answer Date Recorded Feeling Down, Depressed, or Hopeless 2 02/10/2020 PHQ-9 Total Score 17 02/10/2020 [place] Scale Score: Not on file 0 Comments [...] encounter Miscellaneous Notes * Telephone Encounter - July MD Desiree - 03/24/2022 9:40 AM EST Please confirm dose also has 60 mg on file for the thryoid medication documented in this encounter Plan of Treatment Not on file documented as of this encounter Visit Diagnoses Not on filedocumented in this encounter Care Teams Settlement Technician Relationship Specialty Start Date End Date Patricia Recinos MD [address] [place] [address], [address] [place] [address] PCP - General Family Medicine 11/12/17 documented as of this encounter
--- OUTSIDE RECORDS SUMMARY | 2025-01-28 16:41 | XMS_ITS | Encounter Summary ---
Author Organization [facility] (historical information prior to 01/03/2025 only) Address [address] [place] [address] Care Team Providers Care Costume Mistress Name Role Phone Patricia Recinos MD Primary Care Provider [phone] Encounter Details Date Type Department Care Team (Late st Contact Info) Description 10/18/2022 Telephone [facility] [address] [place] [phone] Patricia Recinos MD [address] [place] [address] Social History Tobacco Use Types Packs/Day Years Used Date Smoking Tobacco: Never Smokeless Tobacco: Never Alcohol Use Standard Drinks/Week Comments No 0 (1 standard drink = 0.6 oz pur e alcohol) Depression Answer Date Recorded Feeling Down, Depressed, or Hopeless 2 02/10/2020 PHQ-9 Total Score 17 02/10/2020 [place] Scale Score: Not on file 0 Comments [...] on filedocumented in this encounter Care Teams Costume Mistress Relationship Specialty Start Date End Date Patricia Recinos MD [address] [place] [address] PCP - General Family Medicine 11/12/17 documented as of this encounter
--- OUTSIDE RECORDS SUMMARY | 2025-01-28 16:41 | XMS_ITS | Encounter Summary ---
Author Organization [facility] Address [address] [place] [address] Care Team Providers Care Wood Carver Hand Name Role Phone Alireza Daniel MD Unavailable [phone] Karen Gonzalez MD Unavailable Rajeev Stevens MD Unavailable [phone] Nichelle Parks MD Unavailable [phone] Unknown, Provider MD Primary Care Provider Unava ilable Reason for Visit * Reason Onset Date Comments Medication Refill 01/27/2025 Encounter Details Date Type Department Care Team (Late st Contact Info) Description 01/27/2025 Refill [facility], [address] [address] Patricia Recinos MD [address] [place] [address] Polyneuropathy, unspecified (Primary Dx); Right shoulder pain, unspecified chronicity Social History Tobacco Use Types Packs/Day Years [...] 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, [address] [place] [address] Anton Treviño MD [address] [place] [phone] (Work) In Person with Physician documented as of this encounter Visit Diagnoses Diagnosis Polyneuropathy, unspecified- Primary Right shoulder pain, unspecified chronicity documented in this encounter Care Teams Wood Carver Hand Relationship Specialty Start Date End Date Unknown, Provider, [address] [place] [address] PCP - General 12/19/24 Alireza Daniel MD [address] [place] [address] Internal Medicine 03/28/12 Karen Gonzalez MD [address] [place] [address] Family Practice 09/01/23 Rajeev Stevens MD [address] [place] [address] Family Practice 07/04/17 Nichelle Parks MD [address] [place] [address] Family Practice 09/01/23 documented as of this encounter
--- OUTSIDE RECORDS SUMMARY | 2025-01-28 16:41 | XMS_ITS | Encounter Summary ---
Author Organization Chela Padron [facility] Address [address] [place] [address] Care Team Providers Care Call Center Support Consultant Name Role Phone Alireza Daniel MD Unavailable [phone] Dayna John NP Primary Care Provider [phone] Karen Gonzalez MD Unavailable Rajeev Stevens MD Unavailable [phone] Nichelle Parks MD Unavailable [phone] Unknown, Provider MD Primary Care Provider Unava ilable Encounter Details Date Type Department Care Team (Late Contact Info) Description 07/26/2023 Lab Requisition [facility] Orders Patricia Recinos MD [address] [place] [phone] Encounter for screening, unspecified Social History Tobacco Use Types Packs/Day Years [...] 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; 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 Not on file Not on file documented as of this encounter Plan of Treatment Upcoming Encounters Date Type Department Care Team (Late st Contact Info) Description 02/02/2025 2:15 PM EST Office Visit [facility] Orthopedics [facility] [address] [place] [address] Anton Treviño MD [address] [place] [address] -[phone] (Work) In Person with Physician documented as of this encounter Procedures Procedure Name Priority Date/Time Associated Diagnosis Comments CBC AND DIFFERENTIAL Routine 07/26/2023 3:59 PM EDT Encounter for screening, unspecified VITAMIN D,25OH Routine 07/26/2023 3:59 PM EDT Encounter for screening, unspecified TSH REFLEX FRT4,T3 Routine 07/26/2023 3: 59 PM EDT Encounter for screening, unspecified [ICD-10-CM] TIBC PROFILE Routine 07/26/2023 3:59 PM EDT Encounter for screening, unspecified C-REACTIVE PROTEIN Routine 07/26/2023 3: 59 PM EDT Encounter for screening, unspecified TOTAL T3 Routine 07/26/2023 3:59 PM EDT Encounter for screening, unspecified T4, FREE Routine 07/26/2023 3:59 PM EDT Encounter for screening, unspecified [ICD-10-CM] FERRITIN Routine 07/26/2023 3:59 PM EDT Encounter for screening, unspecified LIPID PANEL Routine 07/26/2023 3:59 PM EDT Encounter for screening, unspecified COMPREHENSIVE METABOLIC PANEL Routine 07/26/2023 3:59 PM EDT Encounter for screening, unspecified documented in this encounter Results * Thyroid Profile (07/26/2023 3:59 PM EDT) TSH 2.86 0.35 - 4.94 uIU/mL 07/27/2023 12:30 PM EDT [facility] Blood PERIPHERAL NERVOUS SYSTEM STRUCTURE / Unknown 07/26/2023 3:59 PM EDT 07/26/2023 8:00 PM EDT Patricia Recinos MD LAB BLOOD ORDERABLES Final R esult Performing Organization Address City/[facility]/ZIP Co de Phone Number [facility] [address] [place] [address], * T4, Free (07/26/2023 3:59 PM EDT) [facility] Free Thyroxine 0.7 0.7 - 1.5 ng/dL 07/27/2023 12:30 PM EDT [facility] Blood PERIPHERAL NERVOUS SYSTEM STRUCTURE / Unknown 07/26/2023 3:59 PM EDT 07/26/2023 8:00 PM EDT Patricia Recinos MD LAB BLOOD ORDERABLES Final R esult Performing Organization Address [facility] de Phone Number [facility] [address] [place] [address], [place] [phone] * Vitamin D, 25-OH (07/26/2023 3:59 PM EDT) Pathologist [facility] `Vitamin D 25-OH Level 77 >30 ng/mL 07/26/2023 9:14 PM EDT [facility] Comment: Deficient: <20 ng/ml Borderline: 20-29 ng/ml Sufficient: 30-100 ng/ml Potential for Toxicity: >100 ng/ml Reference range change based on recommendations from the Endocrine Society Clinical Practice Guidelines, [employer] [place] [employer] 25-OH Vitamin D assay measures Vitamin D1, D2 and D3, however, it may under-recover Vitamin D2. If the Vitamin D results are inconsistent with clinical evidence, particularly in those patients taking Vitamin D2 supplementation (Ergocalciferol), additional testing is suggested to confirm the result. NOTE: Vitamin D3 (Cholecalciferol) supplementation has been shown to be at least equivalent to Vitamin D2. (source: Yusuf; AM J Clin Nutrition; 95:1357) Blood PERIPHERAL NERVOUS SYSTEM STRUCTURE / Unknown 07/26/2023 3:59 PM EDT 07/26/2023 8:00 PM EDT Patricia Recinos MD LAB BLOOD ORDERABLES Final R esult Performing Organization Address City/[facility]/ZIP Co de Phone Number [facility] [address] [place] [address], * Total T3 (07/26/2023 3:59 PM EDT) Total T3 89.0 58.0 - 159.0 ng/dL 07/26/2023 9:12 PM EDT [facility] Blood PERIPHERAL NERVOUS SYSTEM STRUCTURE / Unknown 07/26/2023 3:59 PM EDT 07/26/2023 8:00 PM EDT Patricia Recinos MD LAB BLOOD ORDERABLES Final R esult Performing Organization Address City/[facility] Co de Phone Number [facility] [address] [place] [address], * Lipid Panel (07/26/2023 3:59 PM EDT) Cholesterol 176 <200 mg/dL [facility] [id number] 07/26/2023 9:07 PM EDT [facility] Triglycerides 70 <150 mg/dL [facility] [id number] 07/26/2023 9:07 PM EDT [facility] HDL Cholesterol 61 >40 mg/dL [facility] [id number] 07/26/2023 9:07 PM EDT [facility] LDL Cholesterol 101 <130 mg/dL [facility] [id number] 07/26/2023 9:07 PM EDT [facility] Comment: LDL-C Treatment Targets LDL-C mg/dL High Risk (20%) <100 optional for very high risk (optional <70) Mod Risk (2 high factors <20%) <130 optional for very high risk (optional <100) Low Risk (0-1 Risk factor) <160 Non-HDL Cholesterol 115 <160 mg/dL [facility] [id number] 07/26/2023 9:07 PM EDT [facility] Comment: NON-HDL-c Treatment Targets Non-HDL C, mg/dL High Risk (20%) <130 Optional for very high risk (optional <100) Mod Risk (2 high factors <20%) <160 Optional for very high risk (optional <130) Low Risk (0-1 Risk Factor) <190 NON-HDL Chol= Total Cholesterol-HDL Chol goal <160 VLDL Cholesterol 14 8 - 71 mg/dL [facility] [id number] 07/26/2023 9:07 PM EDT [facility] Ratio Chol/HDL 2.9 0.0 - 4.4 [facility] [id number] 07/26/2023 9:07 PM EDT [facility] Comment: Risk Ratio Estimate 1/2 Avg. 2X 3X Male 3.4 5.0 9.6 23.4 Female 3.4 4.4 7.1 11.0 Blood PERIPHERAL NERVOUS SYSTEM STRUCTURE / Unknown 07/26/2023 3:59 PM EDT 07/26/2023 8:00 PM EDT Patricia Recinos MD LAB BLOOD ORDERABLES Final R esult [facility] [address] [place] [address], * TIBC Profile (07/26/2023 3:59 PM EDT) Iron,Serum/Plasm a 162 50 - 170 ug/dL [facility] [id number] 07/26/2023 9:07 PM EDT [facility] TIBC 303 250 - 450 ug/dL [facility] [id number] 07/26/2023 9:07 PM EDT [facility] Iron Saturation % 53 15 - 60 % [facility] [id number] 07/26/2023 9:07 PM EDT [facility] Unsaturated Iron Binding Capacity 141 126 - 382 ug/dL [facility] [id number] 07/26/2023 9:07 PM EDT [facility] Blood PERIPHERAL NERVOUS SYSTEM STRUCTURE / Unknown 07/26/2023 3:59 PM EDT 07/26/2023 8:00 PM EDT Patricia Recinos MD LAB BLOOD ORDERABLES Final R esult Performing Organization Address City/[facility]/ZIP Co de Phone Number [facility] [address] [place] [address], [place] [phone] * Ferritin (07/26/2023 3:59 PM EDT) Pathologist [facility] Ferritin 88 5 - 204 ng/mL 07/26/2023 9:14 PM EDT [facility] Blood PERIPHERAL NERVOUS SYSTEM STRUCTURE / Unknown 07/26/2023 3:59 PM EDT 07/26/2023 8:00 PM EDT Patricia Recinos MD LAB BLOOD ORDERABLES Final R esult Performing Organization Address [facility] Co de Phone Number [facility] [address] [place] [address], [place] [phone] * (ABNORMAL) Comprehensive Metabolic Panel (07/26/2023 3:59 PM EDT) [facility] Sodium 138 134 - 144 mmol/L [address] 07/26/2023 9:07 PM EDT [facility] Potassium 4.2 3.2 - 5.1 mmol/L [address] 07/26/2023 9:07 PM EDT [facility] Comment:Samples tested in [facility] may exhibit a higher potassium value than those tested on plasma. Our current range is based on plasma testing. Chloride 106 97 - 109 mmol/L [facility] [id number] 07/26/2023 9:07 PM EDT [facility] Total CO2/Bicarbonate 22 20 - 32 mmol/L [facility] [id number] 07/26/2023 9:07 PM EDT [facility] Anion Gap 10 5 - 15 mmol/L [facility] [id number] 07/26/2023 9:07 PM EDT [facility] BUN 19 7 - 20 mg/dL [place] [id number] 07/26/2023 9:07 PM EDT [facility] Creatinine, Blood 1.00 0.60 - 1.10 mg/dL [address] 07/26/2023 9:07 PM EDT [facility] Glucose, Blood 109 70 - 110 mg/dL [address] 07/26/2023 9:07 PM EDT [facility] Calcium 9.0 8.5 - 10.5 mg/dL [address] 07/26/2023 9:07 PM EDT [facility] Total Protein 7.0 6.1 - 8.2 g/dL [address] 07/26/2023 9:07 PM EDT [facility] Albumin, Blood 4.0 3.4 - 5.0 g/dL [address] 07/26/2023 9:07 PM EDT [facility] Globulin Result 3.0 2.5 - 4.3 g/dL [address] 07/26/2023 9:07 PM EDT [facility] AST (SGOT) 22 15 - 37 U/L [address] 07/26/2023 9:07 PM EDT [facility] ALT (SGPT) 19 0 - 55 U/L [address] 07/26/2023 9:07 PM EDT [facility] Alkaline Phosphatase 77 40 - 150 U/L [address] 07/26/2023 9:07 PM EDT [facility] Total Bilirubin 0.6 0.2 - 1.2 mg/dL [address] 07/26/2023 9:07 PM EDT [facility] Estimated GFR (MDRD) 58(L) >=60 mL/min/BSA [address] 07/26/2023 9:07 PM EDT [facility] Blood PERIPHERAL NERVOUS SYSTEM STRUCTURE / Unknown 07/26/2023 3:59 PM EDT 07/26/2023 8:00 PM EDT us Patricia Recinos MD LAB BLOOD ORDERABLES Final R esult [facility] [address] [place] [address], * C-Reactive Protein (07/26/2023 3:59 PM EDT) Pathologist [facility] C-Reactive Protein (CRP) 0.3 <5.0 mg/L [facility] [id number] 07/26/2023 9:17 PM EDT [facility] Blood PERIPHERAL NERVOUS SYSTEM STRUCTURE / Unknown 07/26/2023 3:59 PM EDT 07/26/2023 8:00 PM EDT Patricia Recinos MD LAB BLOOD ORDERABLES Final R esult [facility] [address] [place] [address], * CBC and Differential (07/26/2023 3:59 PM EDT) [facility] WBC 6.09 4.00 - 11.00 K/uL 07/26/2023 8:30 PM EDT [facility] RBC 4.31 4.00 - 5.20 M/uL 07/26/2023 8:30 PM EDT [facility] Hemoglobin 14.6 12.0 - 15.0 g/dL 07/26/2023 8:30 PM EDT [facility] Hematocrit 40.9 36.0 - 45.0 % 07/26/2023 8:30 PM EDT [facility] MCV 95 82 - 98 fL 07/26/2023 8:30 PM EDT [facility] RDW 12.5 11.5 - 15.0 % 07/26/2023 8:30 PM EDT [facility] Platelet Count 250 150 - 450 K/uL 07/26/2023 8:30 PM EDT [facility] Neutrophil 60.4 % 07/26/2023 8:30 PM EDT [facility] Lymphocyte 29.9 % 07/26/2023 8:30 PM EDT [facility] Monocyte 8.0 % 07/26/2023 8:30 PM EDT [facility] Eosinophil 0.7 % 07/26/2023 8:30 PM EDT [facility] Basophil 0.7 % 07/26/2023 8:30 PM EDT [facility] Immature Granulocyte (Evergreen, Myelo, Promyelocyte) 0.3 % 07/26/2023 8:30 PM EDT [facility] Absolute Neutrophil Count 3.68 1.50 - 7.70 K/uL 07/26/2023 8:30 PM EDT [facility] Absolute Lymphocyte Count 1.82 1.00 - 5.00 K/uL 07/26/2023 8:30 PM EDT [facility] Absolute Monocyte Count 0.49 0.10 - 1.00 K/uL 07/26/2023 8:30 PM EDT [facility] Absolute Eosinophil Count 0.04 0.00 - 0.70 K/uL 07/26/2023 8:30 PM EDT [facility] Absolute Basophil Count 0.04 0.00 - 0.20 K/uL 07/26/2023 8:30 PM EDT [facility] Absolute Immature Granulocyte (Evergreen, Myelo, Promyelocyte) 0.02 0.00 - 0.09 K/uL 07/26/2023 8:30 PM EDT [facility] MCH 33.9 23.0 - 37.0 pg 07/26/2023 8:30 PM EDT [facility] MCHC 35.7 29.0 - 38.0 g/dL 07/26/2023 8:30 PM EDT [facility] MPV 9.3 8.0 - 14.0 fL 07/26/2023 8:30 PM EDT [facility] Blood PERIPHERAL NERVOUS SYSTEM STRUCTURE / Unknown 07/26/2023 3:59 PM EDT 07/26/2023 8:00 PM EDT us Patricia Recinos MD LAB BLOOD ORDERABLES Final R esult Performing Organization Address City/State/[facility] Co de Phone Number [facility] [address] [place] [address], documented in this encounter Visit Diagnoses Diagnosis Encounter for screening, unspecified documented in this encounter Care Teams Call Center Support Consultant Relationship Specialty Start Date End Date Dayna John NP [address] [place] [address] PCP - General Family Practice 10/15/18 12/18/24 Unknown, Provider, [address] [place] [address] PCP - General 12/19/24 Alireza Daniel MD [address] [place] [address] Internal Medicine 03/28/[address] [facility] [address] Family Practice 09/01/[address] [facility] [address] [address] Family Practice 07/04/[address] [facility] [address] [address] Family Practice 09/01/23 documented as of this encounter
--- OUTSIDE RECORDS SUMMARY | 2025-01-28 16:41 | XMS_ITS | Encounter Summary ---
Author Organization [facility] Address [address] [place] [address] [address] Care Team Providers Care Healthcare Science Specialist Name Role Phone Alireza Daniel Md Primary Care Provider [phone] Poc, Non Atrius Pcp Or Primary Care Provider Esperanza vailable Reason for Visit * Reason Onset Date Comments RX Renewal 02/06/2020 Encounter Details Date Type Department Care Team (Late st Contact Info) Description 02/06/2020 [facility] [address] [place] [phone] Alireza Daniel MD [address] [place] [address] RX RENEWAL Social History Tobacco Use Types Packs/Day Years [...] on filedocumented in this encounter Care Teams Healthcare Science Specialist Relationship Specialty Start Date End Date Alireza Daniel MD [address] [place] [address] PCP - General Internal Medicine 03/18/12 06/10/22 Poc, Non Atrius Pcp Or PCP - General 06/11/22 documented as of this encounter
--- OUTSIDE RECORDS SUMMARY | 2025-01-28 16:41 | XMS_ITS | Clinical Summary ---
Author Organization [employer] Address [address] [place] [address] [address] Care Team Providers Care Incident Response Lead Name Role Phone Poc, Non Atrius Pcp Or Primary Care Provider Esperanza vailable Allergies No known active allergies Medications * This document contains information received from the source organization and may not represent a complete record from that organization. ARIPiprazole (ABILIFY) 5 mg tablet Take 1 tablet by mouth daily Prescribed by psychiatrist 0 6 Active nortriptyline 25 mg capsule Take 1 capsule by mouth at bedtime Prescribed by psychaitry 0 6 Active multivitamin tablet Take by mouth Active ARMOUR THYROID 60 mg tablet Take 90 mg by mouth daily 7 Active tretinoin 0.1 % Cream Apply to the affected area 9 Active buPROPion (WELLBUTRIN SR) 150 mg tablet sustained-relea se 12 hr SR 12 HRIndications:P rescription refill,Other depression TAKE 1 TABLET BY MOUTH TWICE DAILY. DO NOT. STOP WITHOUT CONSULTING CLINICIAN 60 tablet 0 Active cholecalciferol , vitamin D3, 25 mcg (1,000 unit) capsule Take by mouth daily Active triamcinolone 0.1 % CreamIndication s:Prescription refill APPLY EXTERNALLY TO THE AFFECTED AREA TWICE DAILY 15 gram 1 Active cyclobenzaprine 10 mg tabletIndicatio ns:Muscle spasm,Prescript ion refill TAKE 1/2 TO 1 TABLET BY MOUTH EVERY 8 HOURS NEEDED FOR MUSCLE SPASM. NO MORE THAN 3 TABLET A DAY 20 tablet 2 Active albuterol HFA 90 mcg/actuation HFA Aerosol InhalerIndicati ons:Acute cough,Reactive airway disease without asthma Inhale 2 puffs as instructed every 4-6 hours as needed; rinse mouthpiece at least weekly. (Dispense generic, Ventolin, or Proventil per payor) 1 each 3 2 Active fluticasone propionate (FLOVENT HFA) 110 mcg/actuation HFA Aerosol InhalerIndicati ons:Acute cough,Reactive airway disease without asthma Inhale 2 puffs twice daily and rinse your mouth thoroughly afterward (Dispense generic or brand based on insurance) 12 gram 5 2 Active benzonatate (TESSALON) 100 mg capsuleIndicati ons:Acute cough Take 1 capsule by mouth three times daily as needed for cough 30 capsule 2 Active fluticasone propionate 50 mcg/actuation [place], SuspensionIndic ations:Post-ángel al drip Apply 1-2 sprays to each nostril daily ; dispense OTC if lowest cost for patient 16 gram 2 2 Active ketoconazole (NIZORAL) 2 % Shampoo Shampoo, rinse & repeat; use twice per week for 4 weeks, then as needed 120 mL 3 Active eszopiclone (LUNESTA) 2 mg tabletIndicatio ns:Prescription refill TAKE 1 TABLET BY MOUTH AT BEDTIME FOR INSOMNIA. OVERDUE FOR PHYSICAL AND LABWORK. 30 tablet 3 Active levonorgestrel- ethinyl estradiol (LESSINA) 0.1-20 mg-mcg tablet Take 1 tablet by mouth daily 84 tablet 4 3 Active Active Problems Problem Noted Date Diagnosed Date Polyuria 05/04/2021 Overview (01/12/2022): Evaluation by Dr Enid Berger ? 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 Salt wasting nephropathy, trial of indocin Was advised referal to [facility] 12/2021: has followed by Urology in the past- no changes. Secondary hemochromatosis 09/02/2020 Overview (01/12/2022): Genetic testing proven per pt Iron levels and ferritin levels are now normal 12/2021: will recheck labs and fu as needed. Double vision 11/15/2017 Overview (01/12/2022): Last Assessment & Plan: -she met with opthalmology, and they said that her eye exam was normal, but it might help to see mass eye and ear since it's in both eyes to make sure no underlying cause -she will plan to do this 12/2021; followed by [facility]. Sleep disorder 11/15/2017 Overview (01/12/2022): Last Assessment & Plan: -the patient had met with psych and they felt that she would be a good candidate for lunesta -her previous pcp was giving it to her -last filled in July 2017 -checked mass log -20 tabs given to use prn 12/2021: cont on Lunesta. Chronic fatigue 09/12/2016 Overview (01/12/2022): Last Assessment & Plan: Hormone work up as above I am not sure if testosterone therapy is beneficial to her--she will gradually taper down. 12/2021: no changes Hypoglycemia 09/12/2016 Overview (01/12/2022): Last Assessment & Plan: It is hard to say if her symptoms are related to hypoglycemia I gave her a glucometer--she will check fingerstick glucose if she has recurrent symptoms If her symptoms are correlating with lower sugars and she does not have adrenal insufficiency--we will pursue hypoglycemia work up which include checking insulin, proinsulin, cpeptide, beta hydroxybuterate and sulfonylurea screening when she has confirmed hypoglycemia if that can be induced by food I encourage her to have more balanced nutrition--optimize lean protein. 12/2021: no changes, will recheck labs and fu as needed. Acquired hypothyroidism 08/04/2016 Overview (01/12/2022): Last Assessment & Plan: Will lower armour to 6.5 tabs/week and repeat TFTs in 6-8 weeks. 12/2021: daily Amour thyroid 60 mg. Will recheck labs and fu as needed. Eczema of both hands 08/04/2016 Overview (01/12/2022): 12/2021: still present- has triamcinolone cream as needed. Vitamin D deficiency 08/04/2016 Overview (01/12/2022): 12/2021: takes Vit D supplement- will recheck labs and fu as needed. Low testosterone level in female 02/29/2016 Overview (01/12/2022): 12/2021: Con on testosterone compound daily- will recheck labs and fu as needed. Hypothyroidism 02/09/2014 Anxiety 07/28/2012 Overview (01/12/2022): 12/2021: followed by - on wellbutrin and abilify Anorexia 07/28/2012 Overview (01/12/2022): In remission for many yrs Psychiatrust Dr Tae Hicks, in [place], transffering care here 12/2021: no problems at present- followed in Depression 07/16/2012 Overview (01/12/2022): 12/2021: on well butrin and abilify- followed by Immunizations Immunization Administration Dates Next Due COVID-19 (ANA LAURA) Vaccine, 0.5mL, IM, 18YRS+ Hep B Vaccine (Unspecified Formulation) 12/18/19 04 TB Test 09/08/2015 TD (Adult) Vaccine (Unspecified Formulation) 01/2007 TD Vaccine (Adult) 11/09/1995 TdaP 10/17/2012 Surgical History Surgery Date Site/Laterality Comments BIOPSY BREAST L fibroadenoma Medical History Medical History Date Comments History of chicken pox Family History Medical History Relation Comments borderline diabetes Father Diabetes - type II Maternal Uncle No significant medical history Other Cancer - melanoma Paternal Uncle Relation Status Comments Father Alive Maternal Uncle Mother Alive Other Paternal Uncle Sister Alive Social History Tobacco Use Types Packs/Day Years Used Date Smoking Tobacco: Never Smokeless Tobacco: Never Tobacco Cessation:Counseling Given: Not Answered Alcohol Use Standard Drinks/Week Comments No 0 (1 standard drink = 0.6 oz pur e alcohol) Hunger Vital Sign Answer Date Recorded Within the past 12 months, y ou worried that your food would run out before you got the money to buy more. Often true Within the past 12 months, t he food you bought just didn't last and you didn't have money to get more. Sometimes true 12/2021 PRAPARE - Transportation Answer Date Re corded In the past 12 months, has l ack of transportation kept you from medical appointments or from getting medications? Yes 12/31 In the past 12 months, has l ack of transportation kept you from meetings, work, or from getting things needed for daily living? Yes 01/09/2022 Depression Answer Date Recorded Last PHQ-2 6 01/09/2022 Last PHQ-9 Not on file 01/09/2022 Suicidal Ideation/Self Harm Risk Not on file 01/09/2022 Housing Stability Answer Date Recorded What is your housing situation today? No housing 01/09/2022 Are you worried about losing your housing? No 01/09/2022 Housing Conditions Not on file 01/09/2022 Request Assistance Answer Date Recorded Would you like to discuss an y of the needs you identified in this survey with a member of your care team? Yes Are any of your needs urgent? No Social Isolation Answer Date Recorded How often do you feel lonely or isolated from those around you? Sometimes 01/09/2022 Family Needs Answer Date Recorded Select needs that you or a f amily member that you live with have been unable to get in the past year when they were really needed: Healthcare 01/09/2022 Other Needs Not on file 01/09/2022 Safety Answer Date Recorded Do you feel physically and e motionally safe where you currently live? Yes 01/09/2022 Self-Management Confidence Answer Date Recorded How confident are you that y ou can control and manage most of your health problems? Please provide numerical response between 0 -10. 0 = Not at all confident, 10= Completely confident. 8 01/09/2022 Comments No Sex and Gender Information Value Date Recorded Sex Assigned at Female 04/25/2021 1:52 PM EST Legal Sex Female 4:27 AM EDT Gender Identity Female 04/25/2021 1:52 PM EST Sexual Orientation Straight 01/06/2022 5: 50 PM EDT Occupation Industry Job Start Date Job End Date unemployed Not on file Not on file Not on file Obstetrics History Para Term AB IAB SAB Ectopic Multiple Livin g Live Births 0 0 0 0 0 0 0 0 0 0 Last Filed Vital Signs Vital Sign Reading Time Taken Comments Blood Pressure 116/64 01/12/2022 2:32 PM EDT Pulse 81 01/12/2022 2:32 PM EDT Temperature 38.1 C (100.6 F) 03/02/2022 2:01 PM EST pt reoprted Respiratory Rate 18 07/21/2012 12:08 PM EDT Oxygen Saturation 99% 01/12/2022 2:32 PM EDT Inhaled Oxygen Concentration - - Weight 58.1 kg (128 lb) 03/02/2022 2:01 PM EST p t reported Height 167.6 cm (5' 6 ) 01/12/2022 2:32 PM EDT Body Mass Index 20.66 01/12/2022 2:32 PM EDT Plan of Treatment Health Maintenance Due Date Last Done Comments HEP B INITIAL SCREENING 1988 HIV SCREENING 1988 MAMMOGRAPHY: 1 YR 2010 COLORECTAL SCREENING: UPDATE W EDIT MODIFIERS 06/22/2015 PNEUMOCOCCAL VACCINE(S) 50+ (1 of 1 - PCV) 2020 ZOSTER VACCINE (1 of 2) 2020 OFFICE VISIT 07/13/2022 01/12/2022 DTAP/TDAP/TD VACCINE (2 - Td or Tdap) 10/17/2022 10/17/2012, 10/10/2006, 11/09/1995 PERIODIC HEALTH REVIEW 01/12/2023 01/12/2022 HPV SCREENIN YR 10/31/2023 10/30/2018, 3 PAP LOW RISK: 5 YR 10/31/2023 10/30/2018, 10/17/2012 COVID-19 Vaccine (2 - season) 2024 11/19/2020 FLU SEASONAL (#1) 12/01/2024 LIPID SCREENING 01/12/2027 01/12/2022, 0605/2020, 08/07/2016, Additional history exists * GLUCOSE OR A1C SCREENING - Q3YR 01/24/2027 01/25/2024, 01/25/2024, 01/24/2024, Additional history exists HEP C SCREENING Completed 09/27/2020 HAEMOPHILUS INFLUENZA VACCINE Aged Out No longer eligible based on patient's age to complete this topic HEPATITIS A VACCINE Aged Out No longe r eligible based on patient's age to complete this topic POLIO VACCINE Aged Out No longer elig ible based on patient's age to complete this topic RSV Vaccine Infant//toddler Aged Out No longer eligible based on patient's age to complete this topic Procedures Procedure Name Priority Date/Time Associated Diagnosis Comments HEMOGLOBIN A1C Routine 01/12/2022 3:35 PM EDT Medication monitoring encounter Other logistics assistant (current) drug therapy LIPID PROFILE Routine 01/12/2022 3:35 PM EDT Routine health maintenance HEPATITIS C ANTIBODY W/REFLEX TO PCR Routine 09/27/2020 9:31 AM EDT Need for hepatitis C screening test HPV HIGH RISK PCR MRNA THINPREP VIAL Routine 10/30/2018 3:11 PM EDT Screening for cervical cancer PAP VIAL TESTING Routine 10/30/2018 3:11 PM EDT Screening for cervical cancer from Last 3 Months or Most Recently Relevant to Health Maintenance Results * LIPID PROFILE (01/12/2022 3:35 PM EDT) CHOLESTEROL 156 <=199 mg/dL 01/12/2022 7:56 PM EDT [facility] HDL 63 >=41 mg/dL 01/12/2022 7:56 PM EDT [facility] CHOL/HDL RATIO 2.5 <=4.9 01/12/2022 7:56 PM EDT [facility] LDL 78.6 <=130 mg/dL 01/12/2022 7:56 PM EDT [facility] TRIGLYCERIDES 72 <=149 mg/dL 01/12/2022 7:56 PM EDT [facility] FASTING STATUS Random 01/12/2022 7:56 PM EDT [facility] Blood (Blood, Venous) Venipuncture / Unknown 01/12/2022 3:35 PM EDT 01/12/2022 3:35 PM EDT us Alireza Daniel GENERAL LAB Final Result [facility] [address] [place] [address] * HEMOGLOBIN A1C (01/12/2022 3:35 PM EDT) HEMOGLOBIN A1C 5.0 <5.7 % 01/12/2022 8:07 PM EDT [facility] Comment: Non-Diabetic Reference Range <5.7% Pre-Diabetic Reference Range 5.7% - 6.4% Diabetic Reference Range >6.4% The [place] [employer] recommends that the goal of therapy should be a hemoglobin A1C of < 7.0% and that physicians should reevaluate the treatment regimen in patients with hemoglobin A1C values consistently > 8.0%. ESTIMATED AVERAGE GLUCOSE 97 mg/dL 01/12/2022 8:07 PM EDT [facility] Comment: Estimated Average Glucose A1C(%) mg/dl (95% CI) 5 97 (76-120) 6 126 (100-152) 7 154 (123-185) 8 183 (147-217) 9 212 (170-249) 10 240 (193-282) 11 269 (217-314) 12 298 (240-347) Based on the ADAG formula: eAG = (28.7 X A1c) - 46.7 with the 95% confidence interval as reported in: Nino SMART et al, Diabetes Care, 2008, 31(8);1479 Blood (Blood, Venous) Venipuncture / Unknown 01/12/2022 3:35 PM EDT 01/12/2022 3:35 PM EDT us Nathanael Corey GENERAL LAB Final Result Performing Organization Address City/[facility]/ZIP Co de Phone Number [facility] [address] [place] [address] * HEPATITIS C ANTIBODY W/REFLEX TO PCR (09/27/2020 9:31 AM EDT) HEPATITIS C ANTIBODY <0.02 <0.80 Index Value (IV) 09/27/2020 4:51 PM EDT [facility] Comment: NEGATIVE 0.00 - 0.79 Index Value (IV) Negative Blood (Blood, Venous) Venipuncture / Unknown 09/27/2020 9:31 AM EDT 09/27/2020 9:51 AM EDT Marco Madrigal GENERAL LAB Final Result Performing Organization Address [facility] Co de Phone Number [facility] [address] [place] [address] * (ABNORMAL) PAP VIAL TESTING (10/30/2018 3:11 PM EDT) Case Report Gynecologic Cytology Case: [id number] Authorizing Provider: Kita Spears MD Collected: 10/30/2018 03:11 PM Ordering Location: [facility] Received: 10/30/2018 03:11 PM First Screen: Yulinaa Callejas Pathologist: Chris Sanderson MD Specimen: FOOD PREPARATION SUPERVISOR CYTOLOGY LIQUID BASED PAP TEST, Cervical 11/12/2018 3:22 PM EDT [facility] Interpretation UNSATISFACTORY, CORRELATE CLINICALLY(A) 11/12/2018 3:22 PM EDT [facility] at 1522 EDT Comment:The pap test is unsa tisfactory due to insufficient squamous component; therefore , the negative HPV result should be considered unreliable. Repeat testing may be considered. Specimen Adequacy Specimen processed and examined, but unsatisfactory for diagnosis due to insufficient well preserved, well-visualized squamous cells. 11/12/2018 3:22 PM EDT [facility] Macroscopic Description Vial contains 20cc of dean fluid. 11/12/2018 3:22 PM EDT [facility] EMBEDDED IMAGE 11/12/2018 3:22 PM EDT [facility] HPV High Risk Negative 11/12/2018 3:22 PM EDT [facility] Source Cervical 11/12/2018 3:22 PM EDT [facility] PAP Vial (Cervical) Non-blood collection / Unknown 10/30/2018 3:11 PM EDT 10/30/2018 3:11 PM EDT Kita Spears LAB PATHOLOGY ORDERABLES Chichi l Result [facility] [address] [place] [address] * HPV HIGH RISK PCR MRNA THINPREP VIAL (10/30/2018 3:11 PM EDT) HPV HIGH RISK mRNA Negative Negative 10/31/2018 4:46 PM EDT [facility] SOURCE Cervical 10/31/2018 4:46 PM EDT [facility] PAP Vial (Cervical) Non-blood collection / Unknown 10/30/2018 3:11 PM EDT 10/31/2018 6:53 AM EDT Kita Spears MICROBIOLOGY LAB Final Result [facility] [address] [place] [address] from Last 3 Months or Most Recently Relevant to Health Maintenance Insurance [place] MEDICAID MEDICARE Care Teams Incident Response Lead Relationship Specialty Start Date End Date Poc, Non Atrius Pcp Or PCP - General 06/11/22
--- OUTSIDE RECORDS SUMMARY | 2025-01-28 16:41 | XMS_ITS | Encounter Summary ---
Author Organization [facility] Address [address] [place] [address] Care Team Providers Care Service Secretary Name Role Phone Ulysses Pal Primary Care Provider [phone] Araceli Rodriguez SAS SQL DEVELOPER Unavailable Venessa Tracy RESPONDER Unavailable Encounter Details Date Type Department Care Team (Late st Contact Info) Description 11/27/2024 Orders Only [facility] [address] [place] [address] Satnam Garcia [address] [place] [address] Social History Tobacco Use Types Packs/Day Years [...] Description 02/17/2025 1:00 PM EST Consult (Initial) [facility] [address] [place] [address] Mirna Butts NP [address], [place] [id number] urinary freqancy, burning, incontinence, numbness, prolapse 03/04/2025 4:00 PM EST Office Visit [facility] [address] [facility] [address] [place] [address] Ildefonso Knox MD [address] [place] [address] Sy TPI 3 month l/s 12/03 documented as of this encounter Procedures * Due to [facility] law, this organization might not be sharing negative HIV tests. Procedure Name Priority Date/Time Associated Diagnosis Comments CBC INCLUDES DIFFERENTIAL AND PLATELET COUNT Routine 11/27/2024 12:08 PM EDT Fibromyalgia BASIC METABOLIC PANEL WITH (GFR) Routine 11/27/2024 12:08 PM EDT Fibromyalgia documented in this encounter Results * Due to [place] [employer] law, this organization might not be sharing negative HIV tests. * BASIC METABOLIC PANEL WITH (GFR) (11/27/2024 12:08 PM EDT) Glucose 93 65 - 99 mg/dL [facility] Comment:Fasting reference in terval Urea Nitrogen Blood (BUN) 12 7 - 25 mg/dL [facility] Creatinine 0.82 0.50 - 1.03 mg/dL [facility] EGFR 85 > OR = 60 mL/min/1. 73m2 [facility] BUN/Creatinine Ratio SEE NOTE: 6 - 22 (calc) [facility] Comment: Not Reported: BUN and Creatinine are within reference range. Sodium 137 135 - 146 mmol/L [facility] Potassium 4.2 3.5 - 5.3 mmol/L [facility] Chloride 103 98 - 110 mmol/L [facility] Carbon dioxide 29 20 - 32 mmol/L [facility] Calcium 9.2 8.6 - 10.4 mg/dL [facility] 11/27/2024 12:0 8 PM EDT 11/27/2024 11:41 PM EDT Narrative [facility] - 11/28/2024 3:22 AM EDT Please note that this estimated GFR does not include an adjustment for the patient's height or weight, and can therefore, be viewed as reliable only for patients with heights between 60 and 72 . More precise quantification using a 24-hour urine sample or height-based algorithm is recommended for patients outside of this range of height and for those individuals with more precise needs for GFR calculation. Resulting Agency Comment [id number] us Hollis Esteban MD LABORATORY Final Result [facility] [address] [place] [address] * (ABNORMAL) CBC INCLUDES DIFFERENTIAL AND PLATELET COUNT (11/27/2024 12:08 PM EDT) WBC 7.1 3.8 - 10.8 Thousand/ uL [facility] RBC 4.28 3.80 - 5.10 Million/u L [facility] Hemoglobin 14.7 11.7 - 15.5 g/dL [facility] Hematocrit 43.5 35.0 - 45.0 % [facility] MCV 101.6(H) 80.0 - 100.0 fL [facility] MCH 34.3(H) 27.0 - 33.0 pg [facility] MCHC 33.8 32.0 - 36.0 g/dL [facility] Comment: For adults, a slight decrease in the calculated MCHC value (in the range of 30 to 32 g/dL) is most likely not clinically significant; however, it should be interpreted with caution in correlation with other red cell parameters and the patient's clinical condition. RDW 12.7 11.0 - 15.0 % [facility] PLT 258 140 - 400 Thousand/ uL [facility] MPV 9.1 7.5 - 12.5 fL [facility] Neutrophils # 5815 1500 - 7800 cells/uL [facility] Lymphocytes # 717(L) 850 - 3900 cells/uL [facility] Monocytes # 490 200 - 950 cells/uL [facility] Eosinophils # 28 15 - 500 cells/uL [facility] Basophils # 50 0 - 200 cells/uL [facility] Neutrophils % 81.9 % [facility] Lymphocytes % 10.1 % [facility] Monocytes % 6.9 % [facility] Eosinophils % 0.4 % [facility] Basophils % 0.7 % [facility] 11/27/2024 12:0 8 PM EDT 11/27/2024 11:41 PM EDT Narrative Resulting Agency Comment [id number] us Hollis Esteban MD LAB SAME DAY RESULT Final Res ult [facility] [address] [place] [address] documented in this encounter Visit Diagnoses Diagnosis Fibromyalgia Mylagia and myositis, unspecified documented in this encounter Care Teams Service Secretary Relationship Specialty Start Date End Date Ulysses Pal PA [address] [place] [address] PCP - General Internal Medicine 12/28/23 Araceli Rodriguez, SAS SQL DEVELOPER [address] [place] [address] Partner 02/11/24 Venessa Tracy NP [address] [place] [address] Partner 04/07/24 documented as of this encounter
--- OUTSIDE RECORDS SUMMARY | 2025-01-28 16:42 | XMS_ITS | Encounter Summary ---
Author Organization [facility] Address [address] [place] [address] Care Team Providers Care Traffic Control Signaler Name Role Phone Ulysses Pal Primary Care Provider [phone] Araceli Rodriguez SIDE SAWYER Unavailable [phone] Venessa Tracy RADIOTELEGRAPH OPERATOR Unavailable [phone] Reason for Visit * Reason Comments ER F/U Encounter Details Date Type Department Care Team ([facility] st Contact Info) Description 11/11/2024 [facility] Orth[facility] Surgery [address] [place] [address] [place] [phone] Liliya Arnold MD [address] [place] [address] ER F/U Social History Tobacco Use Types Packs/Day Years [...] encounter Miscellaneous Notes * Telephone Encounter - Hadn, Ayleen - 11/11/2024 1:40 PM EDT Future Appointments Date Time Provider Department Phone 11/13/24 4:20 PM Liliya Arnold MD [facility] Orthopedic Surgery [address] 11/18/24 11:30 AM Liliya Arnold MD [facility] Orthopedic Surgery [address] 11/20/24 2:30 PM Maeve Del Rosario, PT [facility]. Rehabilitation [phone] 11/25/24 3:30 PM Satnam Garcia [facility] [phone] 12/10/24 1:40 PM Kane Goodwin, DPM [facility] Podiatry [phone] Left ankle. Seen at [facility] in [place] 11.09.24 documented in this encounter Plan of Treatment Upcoming Encounters Date Type Department Care Team (Latest Contact Info) Description 02/17/2025 1:00 PM EST Consult (Initial) [facility] [address] [place] [address] [phone] Mirna Butts NP [address] [place] [address] urinary freqancy, burning, incontinence, numbness, prolapse 03/04/2025 4:00 PM EST Office Visit [facility] Orthopedic Surgery [address] [facility] [address] [place] [phone] Ildefonso Knox MD [address] [place] [phone] Sy TPI 3 month l/s 12/03 documented as of this encounter Visit Diagnoses Not on filedocumented in this encounter Care Teams Traffic Control Signaler Relationship Specialty Start Date End Date Ulysses Pal PA [address] [place] [phone] PCP - General Internal Medicine 12/28/23 Araceli Rodriguez SIDE SAWYER [address] [facility] [place] [address] Partner 02/11/24 Venessa Tracy NP [address] [facility] [place] [address] Partner 04/07/24 documented as of this encounter
--- OUTSIDE RECORDS SUMMARY | 2025-01-28 16:42 | XMS_ITS | Patient Health Record ---
Author Organization [facility] Billing Info Address [address] [place], [place] [id number] Care Team Providers Care Toll Service Observer Name Role Phone SONY SURESH Unavailable [phone] NITHYA AMBROSIO Unavailable [phone] Reason For Referral No Information Plan Of Treatment No Information
--- OUTSIDE RECORDS SUMMARY | 2025-01-28 16:42 | XMS_ITS | Clinical Summary ---
Author Organization [facility] Address [address] [id number] Care Team Providers Care Transmitter Tester Name Role Phone Ulysses Pal Primary Care Provider [phone] Allergies No known active allergies Medications buPROPion XL (WELLBUTRIN XL) 300 mg tablet Take 300 mg by mouth. 2 Active ARIPiprazole (ABILIFY) 5 mg tablet Take 5 mg by mouth. 2 Active vitamin D3 25 mcg (1,000 unit) capsule Take by mouth. Activ e eszopiclone (LUNESTA) 2 mg tablet TAKE 1 TABLET(2 MG) BY MOUTH EVERY NIGHT AT BEDTIME 2 Active multivitamin (THERAGRAN) tablet Take 1 tablet by mouth. Active nortriptyline (PAMELOR) 25 mg capsule 1 Active progesterone (PROMETRIUM) 100 mg capsule Take 100 mg by mouth nightly. 2 Active [place] Thyroid 30 mg tablet Take 30 mg by mouth 2 times a day. 1 Active cyclobenzaprine (FLEXERIL) 10 mg tablet Take 10 mg by mouth as needed. 4 Active desmopressin (DDAVP) 0.1 mg tablet Take 1 tablet (0.1 mg total) by mouth nightly. 7 tablet 4 Active Additional Information Patient not taking.Reported on 09/03/2024 ciclopirox 1 % shampoo 4 Active tretinoin (RETIN-A) 0.1 % cream APPLY TOPICALLY TO THE AFFECTED AREA 1 TIME AT NIGHT 4 Active triamcinolone acetonide (KENALOG) 0.1% cream Active doxycycline monohydrate (MONODOX) 100 mg capsule Take 1 capsule (100 mg total) by mouth 2 times a day. 14 capsule Active Additional Information Patient not taking.Reported on 09/03/2024 ciprofloxacin-de xAMETHasone (CIPRODEX) otic suspensionIndica tions:Surgical wound infection Apply 4 drops to the wound on right hear helix twice daily for 7 days 7.5 mL Active prasterone, dhea, 25 mg tablet Take 1 tablet by mouth daily. Active ketoconazole (NIZORAL) 2% shampooIndicatio ns:Seborrheic dermatitis Apply to scalp and ear and lather and leave in place for 5-10 minutes, then rinse. Use 3-4 times per week. 120 mL 11 Active estradioL (Imvexxy Starter Pack) 10 mcg insert, dose pack Apply 10 mcg to the vagina every night. X 2 wks 1 each 4 Active Additional Information Patient not taking.Reported on 09/03/2024 estradioL (Imvexxy Maintenance Pack) 10 mcg insert Apply 10 mcg to the vagina 2 times a week. 1 each 3 4 Active polyvinyl alcohol-povidon, PF, 1.4-0.6 % dropperette Instill into affected eye(s). Active sodium chloride (CHILDREN'S SALINE NASAL SPRAY NASAL) Administer into affected nostril(s). Active Restasis 0.05 % ophthalmic emulsion INSTILL 1 DROP INTO BOTH EYES TWICE A DAY DIRECTED Active hydroxychloroqui ne (PLAQUENIL) 200 mg tablet Take 2 tablets (400 mg total) by mouth once a day. 60 tablet 1 Active Additional Information Patient not taking.Reported on 09/03/2024 omeprazole OTC (PriLOSEC OTC) 20 mg EC tablet Take 1 tablet (20 mg total) by mouth once a day. 30 tablet 2 Active Additional Information Patient not taking.Reported on 09/03/2024 dexlansoprazole (DEXILANT) 60 mg capsule Take 60 mg by mouth once a day. Active nitroglycerin (NITRO-BID) 2% ointment Apply 0.5 inch to a single more severe affected digit for 6 to 12 hours. 30 g 4 Active traMADoL (ULTRAM) 50 mg tabletIndication s:Squamous cell carcinoma of right ear Take 1 tablet (50 mg total) by mouth every 8 hours as needed for pain for up to 30 doses. 30 tablet 4 Active silver sulfadiazine (SILVADENE) 1% creamIndications :Squamous cell carcinoma of right ear Apply to affected area 2-3 times daily 85 g 5 4 03/06/20 25 Active escitalopram (LEXAPRO) 10 mg tablet Take 10 mg by mouth daily. 4 Active gabapentin (NEURONTIN) 100 mg capsule Take 100 mg by mouth 3 times daily. 4 Active amLODIPine (NORVASC) 2.5 mg tablet TAKE 1 TABLET BY MOUTH EVERY DAY 90 tablet 1 5 Active pilocarpine (SALAGEN) 5 mg tablet Take 1 tablet (5 mg total) by mouth 3 times a day. 90 tablet 2 5 Active celecoxib (CeleBREX) 100 mg capsule Take 100 mg by mouth 2 times a day. 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 I would like to see if decreasing armour thyroid dose (supplemented with LT4) may also be helpful to reduce her symptoms-- she does not think this is the case, because she had symptoms before starting using armour thyroid. Atypical mole 02/06/2019 Overview (12/31/2023): Last Assessment & Plan: Left ear. Derm referral May need bx Last Assessment & Plan: Left ear. Derm referral May need bx Double vision 11/15/2017 Overview (12/31/2023): Last Assessment & Plan: issues with night vision will be meeting with eye again soon Last Assessment & Plan: -she met with opthalmology, and they said that her eye exam was normal, but it might help to see mass eye and ear since it's in both eyes to make sure no underlying cause -she will plan to do this Last Assessment & Plan: issues with night vision will be meeting with eye again soon Urinary urgency 11/15/2017 Overview (08/03/2023): Last Assessment & Plan: -she did meet with nephrology and they do feel there is something going on with sodium loss she needs more work up and it trying to get in with someone at [facility] -[facility] to be checked on labs Sleep disorder 11/15/2017 Overview (08/03/2023): Stable with prn lunesta Last Assessment & Plan: Stable, f/u prn Excessive thirst 01/03/2017 Overview (12/31/2023): Last Assessment & Plan: Ran tests dr. Rivera Kidney doctor Drinks a lot of water All labs abnormal and did not know why. Saw another specialist data processing systems project planner At [facility] over 5 years ago. Ran tests and the tests were all normal. Ruled out sarcoid. K is normal Sodium normal They did not find anything on work up Most recent eGFR was 58. Had been taking nsaids for her shoulder - now doing PT for this and cutting out the nsaids has had improvement in eGFR after repeat. Did go back up on repeat back up to 70. Saw Nephrology - for polyuria - had been worked up with Dr Berger at [facility] in 2019. Saw another nephrology today Dr Adam Joshua - [place] - ? Some form of mild gillette hypopituitarism - is going to trial low dose desmospressin to help with symptoms more than anything. Is going to do some genetic testing. Repeat labs in 1 weeks Follow up in 6 months. Last Assessment & Plan: Abstain from NSAID use. Trial of desmopressin as discussed with Dr Joshua. Follow up nephrology Last Assessment & Plan: Ran tests dr. Rivera Kidney doctor Drinks a lot of water All labs abnormal and did not know why. Saw another specialist data processing systems project planner At [facility] over 5 years ago. Ran tests and the tests were all normal. Ruled out sarcoid. K is normal Sodium normal They did not find anything on work up Chronic fatigue 09/12/2016 Overview (08/03/2023): Last Assessment & Plan: -will check other labs to ensure stability of her immune system since has been getting sick more often Hypoglycemia 09/12/2016 Overview (08/03/2023): Last Assessment & Plan: CGMS showed low readings at fasting. But since sensor readings can be inaccurate, we will try to imitate the situation and confirm hypoglycemia at the lab We will try to arrange a blood draw after she tries to induce an hypoglycemic episode with prolonged fasting; if her fingerstick glucose confirms hypoglycemia (with FG<60), she will have blood tests for plasma glucose, insulin, preinsulin, cpeptide etc, will also check a cortisol level; if she becomes significantly symptomatic, but cannot induce hypoglycemia, we can safely say that her symptoms are not related to hypoglycemia. Low serum cortisol level 09/12/2016 Overview (08/03/2023): Last Assessment & Plan: -the patient will be getting labs done for cortisol and will follow up pending labs Hereditary hemochromatosis 08/04/2016 Overview (08/03/2023): Question history of Eczema of both hands 08/04/2016 Iron disorder 08/04/2016 Overview (08/03/2023): Last Assessment & Plan: -her labs have been stable recent labs last month were all great will continue to monitor this Vitamin D deficiency 08/04/2016 Overview (08/03/2023): Last Assessment & Plan: -labs to be done today for follow up -she has been taking a vitamin D supplement Insomnia 03/03/2014 Acquired hypothyroidism 02/09/2014 Overview (12/31/2023): Recent thyroid levels stable, on armour thyroid. Managed by her edi architect. Currently taking [place]om Thyroid 90mg Last Assessment & Plan: -taking armour thyroid 90mg -doing well with this dose -follows with endo Last Assessment & Plan: Will lower armour to 6.5 tabs/week and repeat TFTs in 6-8 weeks. Managed by her edi architect. Currently taking [place] Thyroid 90mg Recently was sick with Covid, and feels she has now gained about 10 pounds unexpectedly. And knows that it can happen that her thyroid function decreases due to illness. Would like to check levels. 08/23/23: Is getting her thyroid directly from the email deployment specialist 07/26/23 TSH 2.86, T4 free 0.7, T3 free 4.35, Total T3 89 Last Assessment & Plan: Continue with current dosage, will see what needs to be done to get it through the email deployment specialist again. Recent thyroid levels stable, on armour thyroid. Managed by her edi architect. Currently taking [place] Thyroid 90mg Last Assessment & Plan: -taking armour thyroid 90mg -doing well with this dose -follows with endo Anxiety and depression 07/28/2012 Overview (08/03/2023): Last Assessment & Plan: -she has been doing well and stable on all of her current medications Depressive disorder 03/15/2004 Overview (08/03/2023): Depression Fibromyalgia 03/15/2004 Overview (08/03/2023): Fibromyalgia Resolved Problems Problem Noted Date Diagnosed Date Resolved Date Basal cell carcinoma (BCC) in situ of skin 07/26/2023 12/31/2023 Overview (08/22/2023): Last Assessment & Plan: Derm referral Patient has appt set up Chronic joint pain 04/19/2018 Encounters Date Type Department Care Team Description 12/23/2024 1:30 PM EDT Office Visit [facility] [address] [place] [address] Hollis Townsend MD Lumbar facet arthropathy (Primary Dx); Spinal stenosis, lumbar region with neurogenic claudication; Degeneration of intervertebral disc of lumbar region with discogenic back pain 12/23/2024 Orders Only External Imaging [address] [place] [address] Radiology, External 12/23/2024 Orders Only External Imaging [address] [place] [address] Radiology, External 12/10/2024 myChart Message [facility] [address] [place] [address] Bozena, Generic Provider Your appointment with Dr Townsend on 12/19/24 needs to be rescheduled 12/09/2024 3:26 PM EDT - 12/09/2024 11:59 PM EDT Hospital Encounter [facility] [address] [place] [address] Raynaud's disease without gangrene Discharge Disposition: Home or Self Care () 12/09/2024 3:15 PM EDT - 12/09/2024 3:25 PM EDT Hospital Encounter [facility] [address] [place] [address] Raynaud's disease without gangrene Discharge Disposition: Home or Self Care () 12/04/2024 Refill [facility] [address] [place] [phone] Drafter Electrical: Margot Mendez MD 12/03/2024 Palm Message [facility] nuclear medicine chief technologist [address] [place] [phone] Briana Saldaña NP Surgery 12/01/2024 Refill [facility] [address] [place] [phone] Drafter Electrical: Margot Mendez MD 11/25/2024 Telephone [facility] nuclear medicine chief technologist [address] [place] [phone] Nandini Trivedi [facility] 11/18/2024 1:00 PM EDT Follow-Up [facility] [address] [place] [address] Saul Cruz MD Low back pain, unspecified back pain laterality, unspecified chronicity, unspecified whether sciatica present (Primary Dx); Common peroneal nerve dysfunction of left lower extremity 11/17/2024 Palm Message [facility] [address] [place] [phone] Saul Cruz MD Appointment tomorrow 11/03/2024 Telephone [facility] [address] [place] [address] Telephone Intake, Staff PAC Clinical Questions-Osman 10/30/2024 Refill [facility] [address] [place] [address] Drafter Electrical: Margot Mendez MD from Last 3 Months Immunizations Immunization Administration Dates Next Due Hep B, Unspecified 12/18/2003 Hepatitis B adult (ENGERIX-B ADULT) vaccine 1 mL IM 11/06/2002 PPD Test 09/08/2015 Tetanus Toxoid, Reduced Diph theria Toxoid, and Acellular Pertussis Vaccine, Adsorbed 10/17/2012 Tetanus and Diphtheria Toxoi ds, Adsorbed, Preservative Free (2 Lf of Tetanus Toxoid and 2 Lf of Diphtheria Toxoid) 10/10/2006,11/09/1995 Tuberculin Skin Test; Purifi ed Protein Derivative Solution, Intradermal 09/08/2015 Family History Medical History Relation Name Comments Hypertension Maternal Grandmother Hypertension Mother Diabetes Mother's Brother Kidney disease Neg Hx Relation Name Status Comments Father Alive Maternal Grandmother Mother Alive Mother's Brother Social History Tobacco Use Types Packs/Day Years Used Date Smoking Tobacco: Never Passive Smoke Exposure: Past Smokeless Tobacco: Never Tobacco Cessation:Counseling Given: Not Answered Alcohol Use Standard Drinks/Week Comments Never 0 (1 standard drink = 0.6 oz pur e alcohol) [facility] Utilities Answer Date Recorded In the past 12 months has th e electric, gas, oil, or water company threatened to shut off services in your home? No 10/31/2023 Hunger Vital Sign Answer Date Recorded Within the past 12 months, y ou worried that your food would run out before you got the money to buy more. Patient declined Within the past 12 months, t he food you bought just didn't last and you didn't have money to get more. Patient declined Transportation Answer Date Recorded In the past 12 months, has l ack of reliable transportation kept you from medical appointments, meetings, work or from getting things needed for daily living? Prefer not to answer 10/31/2023 Housing Answer Date Recorded Housing Risk Low 1 10/31/2023 Housing Risk Medium Not on file 10/31/2023 Housing Risk High 1 10/31/2023 What is your living situation today? [facility]NOSTEADY 10/31/2023 Comments No Sex and Gender Information Value Date Recorded Sex Assigned at Female 06/27/2021 3:40 PM EDT Legal Sex Female 4:54 PM EDT Gender Identity Female 07/16/2017 9:44 AM EDT Sexual Orientation Straight 06/27/2021 3: 40 PM EDT Occupation Industry Job Start Date Job End Date Unemployed Not on file Not on file Not on file Last Filed Vital Signs Vital Sign Reading Time Taken Comments Blood Pressure 121/83 03/21/2024 3:20 PM EST Pulse 107 03/21/2024 3:20 PM EST Temperature 36.9 C (98.4 F) 03/21/2024 3:20 PM EST Respiratory Rate 18 03/21/2024 3:20 PM EST Oxygen Saturation 99% 03/21/2024 3:20 PM EST Inhaled Oxygen Concentration - - Weight 54.9 kg (121 lb) 10/17/2024 1:59 PM EDT Height 165.1 cm (5' 5 ) 09/03/2024 11:53 AM EDT Body Mass Index 20.14 09/03/2024 11:53 AM EDT Plan of Treatment Upcoming Encounters Date Type Department Care Team (Late st Contact Info) Description 02/10/2025 10:00 AM EST Office Visit [facility] [address] [place] [phone] Drafter Electrical: Margot Mendez MD [address] [place] [phone] 04/07/2025 9:30 AM EST Office Visit [facility] [address] [place] [address] Zafar Stanley MD [address] [place] [phone] 08/05/2025 1:00 PM EDT Office Visit [facility] Endocrinology [address] [place] [phone] Layla Palmer MD [address] [place] [phone] Health Maintenance Due Date Last Done Comments Cologuard 1970 Colon Cancer Screening 1970 Colonoscopy 1970 FOBT / Fit Test 1970 HIV Screening 1970 HPV and Pap Smear 1970 Sigmoidoscopy 1970 Medicare AWV 06/22/1971 Pneumococcal Vaccine: 50+ Ye ars (1 of 2 - PCV) 1989 Zoster Vaccines (1 of 2) 1989 Hepatitis B Vaccines (2 of 3 - 19+ 3-dose series) 01/15/2004 12/18/2003, 11/06/2002 Mammogram 2010 Cervical Cancer Screening 10/30/2021 Pap Smear 10/30/2021 10/30/2018 DTaP,Tdap,and Td Vaccines (2 - Td or Tdap) 10/17/2022 10/17/2012, 10/10/2006, 11/09/1995 Alcohol/Substance Use Screening 04/02/2024 Depression Screening and Follow-Up 04/02/20242023 Social Drivers of Health Patricia ual Screening 04/02/2024 COVID-19 Vaccine ( season) 12/01/202404/2021, 11/19/2020 Influenza Vaccine (#1) 2024 RSV Vaccine (60+ years old a nd patients) (1 - 1-dose 75+ series) 2045 Hepatitis C Screening Completed 09/27/2020, 021 Procedures * Due to [place] state law, this organization might not be sharing negative HIV tests. Procedure Name Priority Date/Time Associated Diagnosis Comments DIGITAL PRESSURES AND WAVEFORM ANALYSIS(DIG) Routine 12/09/2024 4:25 PM EDT Raynaud's disease without gangrene LOWER EXTREMITY SEGMENTAL PRESSURE MEASUREMENTS AND PULSE VOLUME RECORDINGS Routine 12/09/2024 4:24 PM EDT Raynaud's disease without gangrene XR HIPS BILATERAL 5+ VW W PELVIS Routine 11/18/2024 1:24 PM EDT Bilateral hip pain from Last 3 Months Results * Due to [place] state law, this organization might not be sharing negative HIV tests. * Digital Pressures and Waveform Analysis (Finger Pressures) (Vasc Lab) (12/09/2024 4:25 PM EDT) Pressure Brachial Right 123 mmHg Pressure Digit 1 Right 136 mmHg Index Digit 1 Right 1.11 Pressure Digit 2 Right 132 mmHg Index Digit 2 Right 1.07 Pressure Digit 3 Right 135 mmHg Index Digit 3 Right 1.10 Pressure Digit 4 Right 122 mmHg Index Digit 4 Right 0.99 Pressure Digit 5 Right 133 mmHg Index Digit 5 Right 1.08 Pressure Brachial Left 125 mmHg Pressure Digit 1 Left 133 mmHg Index Digit 1 Left 1.06 Pressure Digit 2 Left 143 mmHg Index Digit 2 Left 1.14 Pressure Digit 3 Left 137 mmHg Index Digit 3 Left 1.10 Pressure Digit 4 Left 125 mmHg Index Digit 4 Left 1.00 Pressure Digit 5 Left 130 mmHg Index Digit 5 Left 1.04 Pressure Brachial all 125.00 mmHg Anatomical Region Laterality Modality Vascular Ultrasound Narrative 12/12/2024 11:59 AM EDT Normal finger pressures on the right and left hand were consistent with normal arterial inflow to the digits. DIGITAL PRESSURES AND WAVEFORM ANALYSIS Right Upper Extremity: Right Digit #1: normal; cuff size 1.9 cm Right Digit #2: normal; cuff size 1.9 cm Right Digit #3: normal; cuff size 1.9 cm Right Digit #4: normal; cuff size 1.9 cm Right Digit #5: normal; cuff size 1.6 cm Left Upper Extremity: Left Digit #1: normal; cuff size 1.9 cm Left Digit #2: normal; cuff size 1.9 cm Left Digit #3: normal; cuff size 1.9 cm Left Digit #4: normal; cuff size 1.9 cm Left Digit #5: normal; cuff size 1.6 cm Tech Comments Raynaud disease us Rajeev Esqueda MD CV VASCULAR PROCEDURES Chichi arciniega Result * Lower Extremity Segmental Pressure Measurements and Pulse Volume Recordings (Vasc Lab) (12/09/2024 4:24 PM EDT) Pressure Brachial Right 121 mmHg Pressure Posterior Tibial Arterial Right 144 mmHg Index Posterior Tibial Arterial Right 1.19 Pressure Dorsalis Pedis Arterial Right 152 mmHg Index Dorsalis Pedis Arterial Right 1.26 Pressure Brachial Left 120 mmHg Pressure Posterior Tibial Arterial Left 144 mmHg Index Posterior Tibial Arterial Left 1.19 Pressure Dorsalis Pedis Arterial Left 152 mmHg Index Dorsalis Pedis Arterial Left 1.26 Pressure Brachial all 121.00 mmHg Anatomical Region Laterality Modality Vascular Ultrasound Narrative 12/12/2024 11:59 AM EDT The right ankle/brachial index and pulse volume recordings demonstrated no significant disease at rest. The left ankle/brachial index and pulse volume recordings demonstrated no significant disease at rest. Segmental Pressure Measurements and Pulse Volume Recordings Lower Right Lower Extremity: Severity of Arterial Insufficiency by LYNDON: normal Left Lower Extremity: Severity of Arterial Insufficiency by LYNDON: normal Tech Comments Raynaud disease us Rajeev Esqueda MD CV VASCULAR PROCEDURES Chichi l Result * XR Hips Bilateral 5+ vw W Pelvis (11/18/2024 1:24 PM EDT) Anatomical Region Laterality Modality Body, Pelvis, Hip Bilateral Computed Radio graphy 11/18/2024 6:10 PM EDT Impressions 11/18/2024 6:11 PM EDT FINDINGS/IMPRESSION: No radiographic findings of acute fracture or dislocation. Mild hip osteoarthritis. Degenerative changes lower lumbar spine, sacroiliac joints and pubic symphysis. Sacrum partly obscured. Soft tissues unremarkable. If this radiology report contains a blank impression section, it is an incomplete radiology report. Please contact the interpreting radiologist or applicable radiology division as soon as possible to obtain the completed interpretation. Workstation ID: [id number] Narrative 11/18/2024 6:11 PM EDT COMPARISON: None. Resulting Agency Comment [id number] Procedure Note Maximiliano Hahn MD - 11/18/2024 COMPARISON: None. IMPRESSION: FINDINGS/IMPRESSION: No radiographic findings of acute fracture or dislocation. Mild hiposteoarthritis. Degenerative changes lower lumbar spine, sacroiliac jointsand pubic symphysis. Sacrum partly obscured. Soft tissues unremarkable. If this radiology report contains a blank impression section, it is anincomplete radiology report. Please contact the interpreting radiologistor applicable radiology division as soon as possible to obtain thecompleted interpretation. Workstation ID: [id number] us Saul Cruz MD IMG XR PROCEDURES Final Resu lt from Last 3 Months Insurance MEDICARE Member Subscriber Plan / Payer (Ef fective 2011-Present) Name:Amber Woo Member ID:[id number] Relation to Subscriber:Self Name:Amber Woo Subscriber ID:[id number] Payer ID:[id number] Group ID:Not on file Type:Not on file Address: [address] MEDICARE [facility] MEDICARE Member Subscriber Plan / Payer (Ef fective 2011-Present) Name:Amber Woo Member ID:[id number] Relation to Subscriber:Self Name:Amber Woo Subscriber ID:[id number] Payer ID:[id number] Group ID:Not on file Type:Not on file Address: [address] MEDICARE Member Subscriber Plan / Payer (Ef fective 2011-Present) Name:Amber Woo Member ID:[id number] Relation to Subscriber:Self Name:Amber Woo Subscriber ID:[id number] Payer ID:[id number] Group ID:Not on file Type:Not on file Address: [address] [place] [address] MEDICARE [facility] [place] [address] Advance Directives Documents on File Type Date Recorded Patient Outreach Analyst Expl anation Advance Directive 05/29/2024 10:09 AM DNR 03/05/24 MOLST/POLST 05/29/2024 10:08 AM Health Care Proxy 05/14/2024 7:23 PM 2023 MOLST/POLST 05/14/2024 6:57 PM 03/01/2024 Care Teams Transmitter Tester Relationship Specialty Start Date End Date Ulysses Pal PA [address] [address] PCP - General 03/19/24
--- OUTSIDE RECORDS SUMMARY | 2025-01-28 16:42 | XMS_ITS | Clinical Summary ---
Author Organization [facility] Address [address] [place] [address] Care Team Providers Care Shoe Cementer Name Role Phone Patricia Recinos MD Primary Care Provider [phone] Allergies No known active allergies Medications ARIPiprazole 5 MG tablet 1 tablet (5 mg total) at bedtime 2 Active buPROPion 300 MG extended release 24 hr tablet (XL) Take 1 tablet (300 mg total) by mouth daily 2 Active cholecalciferol (VITAMIN D3) 25 mcg (1000 units) capsule Take 1 capsule (1,000 Units total) by mouth daily Active ciclopirox 1 % shampoo 4 Active cyclobenzaprine (FLEXERIL) 10 MG tablet Take 1 tablet (10 mg total) by mouth daily as needed for muscle spasms 5 Active cycloSPORINE (RESTASIS) 0.05 % ophthalmic emulsion Administer 1 drop to both eyes 2 (two) times a day as directed Active estradiol 0.025 MG/24HR transdermal system patch (Twice weekly formulation) Apply 1 patch twice a week by transdermal route for 90 days. 4 Active eszopiclone (LUNESTA) 2 MG TABS tablet 1 tablet (2 mg total) at bedtime as needed 5 Active pilocarpine 5 MG tablet Take 1 tablet (5 mg total) by mouth 3 (three) times a day 4 Active dehydroepiandros terone (DHEA) 25 MG tablet Take 1 tablet (25 mg total) by mouth daily Active Progesterone 200 MG CAPS Take 1 capsule (200 mg total) by mouth daily 4 Active thyroid 90 MG tablet Take 1 tablet (90 mg total) by mouth daily 4 Active tretinoin (RETIN-A) 0.1 % cream Apply 1 Application topically at bedtime 4 Active Active Problems Problem Noted Date Diagnosed Date Paresthesia 09/15/2024 TMJ (dislocation of temporomandibular joint) Neck pain 09/15/2024 Social History Tobacco Use Types Packs/Day Years Used Date Smoking Tobacco: Never Smokeless Tobacco: Never Tobacco Cessation:Counseling Given: Not Answered Comments Unknown Sex and Gender Information Value Date Recorded Sex Assigned at Female 09/12/2024 9:17 AM EDT Legal Sex Female 8:34 PM EDT Gender Identity Female 09/12/2024 9:17 AM EDT Sexual Orientation _I choose not to answer 09/12 9:17 AM EDT Last Filed Vital Signs Vital Sign Reading Time Taken Comments Blood Pressure 135/88 09/15/2024 1:15 PM EDT Pulse 111 09/15/2024 1:15 PM EDT Temperature - - Respiratory Rate - - Oxygen Saturation - - Inhaled Oxygen Concentration - - Weight - - Height - - Body Mass Index - - Plan of Treatment Upcoming Encounters Date Type Department Care Team (Late st Contact Info) Description 03/19/2025 4:00 PM EST Office Visit [facility] [address] [place] [phone] Mila Burton DO [address] [place] [address] Health Maintenance Due Date Last Done Comments Colposcopy 1970 Hepatitis B Screening 1988 Cervical Cancer Screening 06/22/1991 HPV Testing 06/22/1991 LEEP/Cone Biopsy 06/22/1991 Pap Smear 06/22/1991 Pap/HPV Cotest 06/22/1991 Breast Cancer Screening 2010 CT Colonography 06/22/2015 Cholesterol Screening 06/22/2015 Colonoscopy 06/22/2015 Colorectal Cancer Screening 06/22/2015 FIT-DNA 06/22/2015 FOBT 06/22/2015 Sigmoidoscopy 06/22/2015 Pneumococcal Vaccines 50+ yr s (1 of 1 - PCV) 2020 Zoster Standard Vaccine (1 o f 2) 2020 DTaP,Tdap,and Td Vaccines (4 - Td or Tdap) 10/17/2022 10/17/2012, 10/10/2006, 11/09/1995 Annual Physical 07/25/2024 07/26/2023, 02/10/2020 COVID-19 Vaccine (1 - 2023-2 5 season) 2024 Influenza Vaccine (#1) 2024 HIB Vaccines Aged Out No longer eligi ble based on patient's age to complete this topic Hepatitis A Vaccine Aged Out No longe r eligible based on patient's age to complete this topic Insurance MEDICARE PART A&B [place] Care Teams Shoe Cementer Relationship Specialty Start Date End Date Patricia Recinos MD PCP - General Family Medicine 09/05/24
--- OUTSIDE RECORDS SUMMARY | 2025-01-28 16:42 | XMS_ITS | Encounter Summary ---
Author Organization [facility] (historical information prior to 01/03/2025 only) Address [address] [place] [address] Care Team Providers Care Garage Door Service Technician Name Role Phone Patricia Recinos MD Primary Care Provider [phone] Encounter Details Date Type Department Care Team ([facility] st Contact Info) Description 01/12/2017 Ancillary Orders [facility] [address] [place] [address] Caryn Oliveira PA [address] [place] [address], [address] [place] [address] Excessive thirst Social History Tobacco Use Types Packs/Day Years [...] as of this encounter Visit Diagnoses Diagnosis Excessive thirst Polydipsia documented in this encounter Care Teams Garage Door Service Technician Relationship Specialty Start Date End Date Patricia Recinos MD [address] [place] [address], [address] [id number] PCP - General Family Medicine 11/12/17 documented as of this encounter
--- OUTSIDE RECORDS SUMMARY | 2025-01-28 16:42 | XMS_ITS | Encounter Summary ---
Author Organization [facility] (historical information prior to 01/03/2025 only) Address [address] [place] [address] Care Team Providers Care Mule Spinner Name Role Phone Patricia Recinos MD Primary Care Provider [phone] Reason for Visit * Reason Comments Med Refill Encounter Details Date Type Department Care Team (Late st Contact Info) Description 05/11/2024 Refill [facility] [address] [place] [address] Cleopatra Israel PA [address] [place] [address] Social History Tobacco Use Types Packs/Day Years Used Date Smoking Tobacco: Never Smokeless Tobacco: Never Alcohol Use Standard Drinks/Week Comments No 0 (1 standard drink = 0.6 oz pur e alcohol) Depression Answer Date Recorded Feeling Down, Depressed, or Hopeless 2 02/10/2020 PHQ-9 Total Score 17 02/10/2020 Electra Scale Score: Not on file 0 Comments [...] on filedocumented in this encounter Care Teams Mule Spinner Relationship Specialty Start Date End Date Patricia Recinos MD [address] [place] [address] PCP - General Family Medicine 11/12/17 documented as of this encounter
--- OUTSIDE RECORDS SUMMARY | 2025-01-28 16:42 | XMS_ITS | Encounter Summary ---
Author Organization [facility] Address [address] [place] [address] Care Team Providers Care Bench Lathe Operator Name Role Phone Ulysses Pal Primary Care Provider Araceli Rodriguez BRAND STRATEGY MANAGER Unavailable Venessa Tracy ANIMAL SCIENCE INSTRUCTOR Unavailable Encounter Details Date Type Department Care Team (Late st Contact Info) Description 02/04/2024 Telephone [facility] Res[facility] Imaging [address] [place] [address] Ulysses Pal PA [address] [place] [address] Social History Tobacco Use Types Packs/Day Years [...] encounter Miscellaneous Notes * Telephone Encounter - Natasha Tomlin - 02/04/2024 12:43 PM EST Good afternoon: We are reaching out to let you know that your patient has cancelled her Brain MRI appointment. Patient was admitted in the hospital and had multiple MRI test done. Patient still in the hospital today This order will be removed on 04/05/2024 Thank you and have a great day [facility] documented in this encounter Plan of Treatment Upcoming Encounters Date Type Department Care Team (Latest Contact Info) Description 02/17/2025 1:00 PM EST Consult (Initial) [facility] [address] [place] [address] Mirna Butts NP [address] [place] [address] urinary freqancy, burning, incontinence, numbness, prolapse 03/04/2025 4:00 PM EST Office Visit [facility] Orthopedic Surgery [address] [place] [phone] Ildefonso Knox MD [address] [place] [address] Sy TPI 3 month l/s 12/03 documented as of this encounter Visit Diagnoses Not on filedocumented in this encounter Care Teams Bench Lathe Operator Relationship Specialty Start Date End Date Ulysses Pal PA [address] [place] [address] PCP - General Internal Medicine 12/28/23 Araceli Rodriguez, [facility] [address] [place] [address] Partner 02/11/24 Venessa Tracy NP [address] [place] [address] Partner 04/07/24 documented as of this encounter
--- OUTSIDE RECORDS SUMMARY | 2025-01-28 16:42 | XMS_ITS | Encounter Summary ---
Author Organization [facility] (historical information prior to 01/03/2025 only) Address [address] [place] [address] Care Team Providers Care Hired Help Name Role Phone Patricia Recinos MD Primary Care Provider Encounter Details Date Type Department Care Team (Late st Contact Info) Description 11/04/2018 Ancillary Orders [facility] MRI [address] [place] [phone] Enid Berger DO [address] [facility] [address] [place] [address] Social History Tobacco Use Types Packs/Day Years [...] on filedocumented in this encounter Care Teams Hired Help Relationship Specialty Start Date End Date Patricia Recinos MD [address] [place] [address], [address] [place] [address] PCP - General Family Medicine 11/12/17 documented as of this encounter
--- OUTSIDE RECORDS SUMMARY | 2025-01-28 16:42 | XMS_ITS | Encounter Summary ---
Author Organization [facility] (historical information prior to 01/03/2025 only) Address [address] [place] [address] Care Team Providers Care Director Instructional Material Name Role Phone Patricia Recinos MD Primary Care Provider [phone] Reason for Visit * Reason Comments Med Refill Encounter Details Date Type Department Care Team (Late st Contact Info) Description 05/08/2024 Refill [facility] [address] [place] [address] Cleopatra Israel PA [address] [place] [address] Sleep disorder Social History Tobacco Use Types Packs/Day Years Used Date Smoking Tobacco: Never Smokeless Tobacco: Never Alcohol Use Standard Drinks/Week Comments No 0 (1 standard drink = 0.6 oz pur e alcohol) Depression Answer Date Recorded Feeling Down, Depressed, or Hopeless 2 02/10/2020 PHQ-9 Total Score 17 02/10/2020 [place] Scale Score: Not on file 0 Comments [...] Notes * Telephone Encounter - Hetal Oakes - 05/08/2024 2:46 PM EST Pharmacy is requesting an alternative to be sent preferred alt is [email or web address]. Insurance didn't cover initial script documented in this encounter Plan of Treatment Not on file documented as of this encounter Visit Diagnoses Diagnosis Sleep disorder Unspecified sleep disturbance documented in this encounter Care Teams Director Instructional Material Relationship Specialty Start Date End Date Patricia Recinos MD [address] [place] [address], [address] [place] [address] PCP - General Family Medicine 11/12/17 documented as of this encounter
--- OUTSIDE RECORDS SUMMARY | 2025-01-28 16:42 | XMS_ITS | Encounter Summary ---
Author Organization [facility] (historical information prior to 01/03/2025 only) Address [address] [place] [address] Care Team Providers Care Project Consultant Name Role Phone Patricia Recinos MD Primary Care Provider [phone] Encounter Details Date Type Department Care Team (Late st Contact Info) Description 02/22/2024 Procedure [facility] [address] [place] [address] [phone] Social History Tobacco Use Types Packs/Day Years Used Date Smoking Tobacco: Never Smokeless Tobacco: Never Alcohol Use Standard Drinks/Week Comments No 0 (1 standard drink = 0.6 oz pur e alcohol) Depression Answer Date Recorded Feeling Down, Depressed, or Hopeless 2 02/10/2020 PHQ-9 Total Score 17 02/10/2020 Lawrence Scale Score: Not on file 0 Comments [...] on filedocumented in this encounter Care Teams Project Consultant Relationship Specialty Start Date End Date Patricia Recinos MD [address] [place] [address], [address] [place] [address] PCP - General Family Medicine 11/12/17 documented as of this encounter
--- OUTSIDE RECORDS SUMMARY | 2025-01-28 16:42 | XMS_ITS | Encounter Summary ---
Author Organization [facility] Address [address] [place] [address] Care Team Providers Care Retention Manager Name Role Phone Ulysses Pal Primary Care Provider [phone] Araceli Rodriguez SALES CORRESPONDENCE CLERK Unavailable [phone] Venessa Tracy FELLER SEAM OPERATOR Unavailable [phone] Reason for Visit * Reason Comments Patient Questions Encounter Details Date Type Department Care Team ([facility] st Contact Info) Description 02/27/2024 Telephone [facility] Otolaryngology [address] [phone] Donaldo Little MD [address] [place] [address] Patient Questions Social History Tobacco Use Types Packs/Day Years Used Date Smoking Tobacco: Never Passive Smoke Exposure: Past Smokeless Tobacco: Never Alcohol Use Standard Drinks/Week Comments No 0 (1 standard drink = 0.6 oz pur e alcohol) PHQ-2 Answer Date Recorded Patient Health Questionnaire-2 Score 6 02/27/2024 PHQ-9 Answer Date Recorded Patient Health Questionnaire-9 Score 27 02/27/2024 Comments No Sex and Gender Information Value Date Recorded Sex Assigned at Female 12/28/2023 11:03 AM EDT Legal Sex Female 2:37 PM EDT Gender Identity Female 12/28/2023 11:03 AM EDT Sexual Orientation Not on file documented as of this encounter Functional Status * Over the past 2 weeks, how often have you been bothered by any of the following problems? Question Answer Date of Assessment Author Patient Health Questionnaire-2 Score 6 02/01 8:57 AM EST Mychart, Generic * Little interest or pleasure in doing things Answer Date of Assessment Author Nearly every day 02/27/2024 8:57 AM EST Mychart, Generic * Feeling down, depressed, or hopeless Answer Date of Assessment Author Nearly every day 02/27/2024 8:57 AM EST Mychart, Generic * Question Answer Date of Assessment Author Patient Health Questionnaire-9 Score 27 02/01 8:57 AM EST Mychart, Generic * Trouble falling or staying asleep, or sleeping too much Answer Date of Assessment Author Nearly every day 02/27/2024 8:57 AM EST Mychart, Generic * Feeling tired or having little energy Answer Date of Assessment Author Nearly every day 02/27/2024 8:57 AM EST Mychart, Generic * Poor appetite or overeating Answer Date of Assessment Author Nearly every day 02/27/2024 8:57 AM EST Mychart, Generic * Feeling bad about yourself - or that you are a failure or have let yourself or your family down Answer Date of Assessment Author Nearly every day 02/27/2024 8:57 AM EST Mychart, Generic * Trouble concentrating on things, such as reading the newspaper or watching television Answer Date of Assessment Author Nearly every day 02/27/2024 8:57 AM EST Mychart, Generic * Moving or speaking so slowly that other people could have noticed? Or the opposite - being so fidgety or restless that you have been moving around a lot more than usual. Answer Date of Assessment Author Nearly every day 02/27/2024 8:57 AM EST Mychart, Generic * Thoughts that you would be better off or hurting yourself in some way Answer Date of Assessment Author Nearly every day 02/27/2024 8:57 AM EST Mychart, Generic documented as of this encounter Miscellaneous Notes * Telephone Encounter - Gabby Tipton RN - 02/27/2024 2:30 PM EST I called the patient. The patient is scheduled with Dr. Little but I reviewed Dr. Pascal's note from02/10/24 and she stated that the first appt is a consult to determine the type of biopsy that is appropriate, review meds and review the procedure. I am not expecting the biopsy to be done on 03/03 based on this explanation so I recommended the patient continue her regular medications and meet with Dr. Little on 03/03 for the consult. * Telephone Encounter - Yumiko Dockery - 02/27/2024 2:11 PM EST Amber Castellanos is a new patient of Dr Little coming in for a consult on 03/03/2024. She is wondering if she needs to hold her steroid medications prior to this appointment as a lip biopsy is being considered. Please advise. Amber can be best reached at [phone] (home) documented in this encounter Plan of Treatment Upcoming Encounters Date Type Department Care Team (Latest Contact Info) Description 02/17/2025 1:00 PM EST Consult (Initial) [facility] [address] [place] [address] Mirna Butts NP [address] [place] [address] urinary freqancy, burning, incontinence, numbness, prolapse 03/04/2025 4:00 PM EST Office Visit [facility] Orthopedic Surgery [address] [phone] Ildefonso Knox MD [address] [place] [address] Sy TPI 3 month l/s 12/03 documented as of this encounter Visit Diagnoses Not on filedocumented in this encounter Care Teams Retention Manager Relationship Specialty Start Date End Date Ulysses Pal PA [address] [place] [address] PCP - General Internal Medicine 12/28/23 Araceli Rodriguez SALES CORRESPONDENCE CLERK [address] [facility] [place] [facility] [place] [address] Partner 02/11/24 Venessa Tracy NP [address] [facility] [place] [address] Partner 04/07/24 documented as of this encounter
--- OUTSIDE RECORDS SUMMARY | 2025-01-28 16:42 | XMS_ITS | Encounter Summary ---
Author Organization [facility] Address [address] [place] [address] Care Team Providers Care Real Estate Sales Agent Name Role Phone Ulysses Pal Primary Care Provider [phone] Araceli Rodriguez PERSONAL CONSULTANT Unavailable [phone] Venessa Tracy CORRECTIONAL FOOD SERVICE SUPERVISOR Unavailable [phone] Reason for Visit * Reason Comments Imaging Study Appointment Encounter Details Date Type Department Care Team (Late st Contact Info) Description 02/04/2024 Telephone [facility] [address] [place] [address] Ulysses Pal PA [address] [place] [address] Imaging Study; Appointment Social History Tobacco Use Types Packs/Day Years [...] encounter Miscellaneous Notes * Telephone Encounter - Stephany Villa - 02/04/2024 12:48 PM EST This patient canceled her four MRI studies and declined rescheduling. She stated she had them done while she was at the hospital. I removed the orders. Thank you, Stephany Sawant Pre-Auth Ornamental Machine Operator Referral Management [id number] documented in this encounter Plan of Treatment Upcoming Encounters Date Type Department Care Team (Latest Contact Info) Description 02/17/2025 1:00 PM EST Consult (Initial) [facility] [address] [place] [address] Mirna Butts NP [address] [place] [address] urinary freqancy, burning, incontinence, numbness, prolapse 03/04/2025 4:00 PM EST Office Visit [facility] Orthopedic Surgery [address] [place] [phone] Ildefonso Knox MD [address] [place] [address] Sy TPI 3 month l/s 12/03 documented as of this encounter Visit Diagnoses Not on filedocumented in this encounter Care Teams Real Estate Sales Agent Relationship Specialty Start Date End Date Ulysses Pal PA [address] [place] [address] PCP - General Internal Medicine 12/28/23 Araceli Rodriguez, [facility] [address] [place] [address] Partner 02/11/24 Venessa Tracy NP [address] [place] [address] Partner 04/07/24 documented as of this encounter
--- OUTSIDE RECORDS SUMMARY | 2025-01-28 16:42 | XMS_ITS | Encounter Summary ---
Author Organization [facility] (historical information prior to 01/03/2025 only) Address [address] [place] [address] Care Team Providers Care Obstetrics Tech Name Role Phone Patricia Recinos MD Primary Care Provider [phone] Reason for Referral * Rehab (Routine) - Closed Specialty Diagnoses / Procedures Referred By Alex benton Referred To Contact Physical Therapy Diagnoses Neck pain Right shoulder tendonitis Jacoby lAtman PA [address] [place] [address] Phone: tel: fax: Referral ID Status Reason Start Date Expiration Date V isits Requested Visits Authorized [id number] Closed Specialty Services Required 08/13/2023 08/12/2024 1 1 Encounter Details Date Type Department Care Team (Late st Contact Info) Description 08/13/2023 Telephone [facility] [address] [place] [address] Jacoby Altman PA [address] [place] [address] Social History Tobacco Use Types Packs/Day Years Used Date Smoking Tobacco: Never Smokeless Tobacco: Never Alcohol Use Standard Drinks/Week Comments No 0 (1 standard drink = 0.6 oz pur e alcohol) Depression Answer Date Recorded Feeling Down, Depressed, or Hopeless 2 02/10/2020 PHQ-9 Total Score 17 02/10/2020 [place] Scale Score: Not on file 0 Comments [...] encounter Miscellaneous Notes * Telephone Encounter - Jacoby Altman - 08/13/2023 12:27 PM EDT Needs PT order for neck pain and right shoulder tendonitis. See message from pt. Please fax Pt order to [facility] and let her know so she can schedule PT documented in this encounter Plan of Treatment Scheduled Referrals Name Type Priority Associated Diagnoses Order Schedule Ambulatory referral to Physical Therapy Outpatient Referral Routine Neck pain Right shoulder tendonitis 1 Occurrences starting 08/13/2023 until 02/13/2024 documented as of this encounter Visit Diagnoses Diagnosis Neck pain- Primary Cervicalgia Right shoulder tendonitis documented in this encounter Care Teams Obstetrics Tech Relationship Specialty Start Date End Date Patricia Recinos MD [address] [place] [address], [address] [place] [address] PCP - General Family Medicine 11/12/17 documented as of this encounter
--- OUTSIDE RECORDS SUMMARY | 2025-01-28 16:42 | XMS_ITS | Encounter Summary ---
Author Organization [facility] (historical information prior to 01/03/2025 only) Address [address] [place] [address] Care Team Providers Care Photoresist Printer Name Role Phone Patricia Recinos MD Primary Care Provider [phone] Reason for Visit * Reason Onset Date Comments Med Refill 04/07/2024 Encounter Details Date Type Department Care Team (Late st Contact Info) Description 04/07/2024 Refill [facility] [address] [place] [address] Cleopatra Israel PA [address] [place] [address] Sleep disorder Social History Tobacco Use Types Packs/Day Years Used Date Smoking Tobacco: Never Smokeless Tobacco: Never Alcohol Use Standard Drinks/Week Comments No 0 (1 standard drink = 0.6 oz pur e alcohol) Depression Answer Date Recorded Feeling Down, Depressed, or Hopeless 2 02/10/2020 PHQ-9 Total Score 17 02/10/2020 Lyons Scale Score: Not on file 0 Comments [...] disturbance documented in this encounter Care Teams Photoresist Printer Relationship Specialty Start Date End Date Patricia Recinos MD [address] [place] [address], [facility] [address] [place] [address] PCP - General Family Medicine 11/12/17 documented as of this encounter
--- OUTSIDE RECORDS SUMMARY | 2025-01-28 16:42 | XMS_ITS | Encounter Summary ---
Author Organization [facility] (historical information prior to 01/03/2025 only) Address [address] [place] [address] Care Team Providers Care Attenuator Name Role Phone Patricia Recinos MD Primary Care Provider [phone] Reason for Visit * Reason Onset Date Comments Med Refill 04/20/2020 Encounter Details Date Type Department Care Team ([facility] st Contact Info) Description 04/20/2020 Refill [facility] [address] [place] [address], [address] [place] [address] Caryn Oliveira PA [address] [place] [address], [address] [place] [address] Social History Tobacco Use Types Packs/Day Years Used Date Smoking Tobacco: Never Smokeless Tobacco: Never Alcohol Use Standard Drinks/Week Comments No 0 (1 standard drink = 0.6 oz pur e alcohol) Depression Answer Date Recorded Feeling Down, Depressed, or Hopeless 2 02/10/2020 PHQ-9 Total Score 17 02/10/2020 Trin[place] Scale Score: Not on file 0 Comments [...] on filedocumented in this encounter Care Teams Attenuator Relationship Specialty Start Date End Date Patricia Recinos MD [address] [place] [address], [facility] [address] [place] [address] PCP - General Family Medicine 11/12/17 documented as of this encounter
--- OUTSIDE RECORDS SUMMARY | 2025-01-28 16:42 | XMS_ITS ---
Author Organization [facility] Address [address] [place] [address] Care Team Providers Care Circular Clerk Name Role Phone Ulysses Pal Primary Care Provider [phone] Active Problems Problem Noted Date Diagnosed Date [...] trying to get in with someone at [facility] to be checked on labs Sleep disorder 11/15/2017 Overview (08/03/2023): Stable with prn lunesta Last Assessment & Plan: Stable, f/u prn Excessive thirst 01/03/2017 Overview (12/31/2023): Last Assessment & Plan: Ran tests dr. Rivera Kidney doctor Drinks a lot of water All labs abnormal and did not know why. Saw another specialist hvac/r service technician At [facility] over 5 years ago. Ran tests and [...] been worked up with Dr Berger at [facility] in 2019. Saw another nephrology today Dr Adam Joshua - Lewis - ? Some form of mild gillette [...] did not know why. Saw another specialist hvac/r service technician At [facility] over 5 years ago. Ran tests and [...] stable, on armour thyroid. Managed by her director adult. Currently taking [place] Thyroid 90mg Last Assessment & Plan: -taking armour thyroid 90mg -doing well with this dose -follows with endo Last Assessment & Plan: Will lower armour to 6.5 tabs/week and repeat TFTs in 6-8 weeks. Managed by her director adult. Currently taking [place] Thyroid 90mg Recently was sick with Covid, and feels she has now gained about 10 pounds unexpectedly. And knows that it can happen that her thyroid function decreases due to illness. Would like to check levels. 08/23/23: Is getting her thyroid directly from the rotary cutter operator 07/26/23 TSH 2.86, T4 free 0.7, T3 free 4.35, Total T3 89 Last Assessment & Plan: Continue with current dosage, will see what needs to be done to get it through the rotary cutter operator again. Recent thyroid levels stable, on armour thyroid. Managed by her director adult. Currently taking [place] Thyroid 90mg Last Assessment & Plan: -taking armour thyroid 90mg -doing well with this dose -follows with endo Anxiety and depression 07/28/2012 Overview (08/03/2023): Last Assessment & Plan: -she has been doing well and stable on all of her current medications Depressive disorder 03/15/2004 Overview (08/03/2023): Depression Fibromyalgia 03/15/2004 Overview (08/03/2023): Fibromyalgia Current Treatment and Therapy Plans No current plan information found. Past Treatment and Therapy Plans No past plan information found. Lifetime Dose Tracking * Chemical Lifetime Dose Automatic Entry Manual Entr y TotalDLP 859 mGy 859 mGy 0 mGy [id number] 2 mSv 2 mSv 0 mSv CTDIvol Max 45.8 mGy 45.8 mGy 0 mGy CTDIvol Min 45.8 mGy 45.8 mGy 0 mGy Resolved Problems Problem Noted Date Diagnosed Date Resolved Date Basal cell carcinoma (BCC) in situ of skin 07/26/2023 12/31/2023 Overview (08/22/2023): Last Assessment & Plan: Derm referral Patient has appt set up Chronic joint pain 04/19/2018 4
--- OUTSIDE RECORDS SUMMARY | 2025-01-28 16:42 | XMS_ITS | Encounter Summary ---
Author Organization [facility] (historical information prior to 01/03/2025 only) Address [address] [place] [address] Care Team Providers Care Dress Shoe Inspector Name Role Phone Patricia Recinos MD Primary Care Provider [phone] Reason for Visit * Reason Comments Med Refill Encounter Details Date Type Department Care Team (Late st Contact Info) Description 03/01/2024 Refill [facility] [address] [place] [address] Anabel Segura PA [address] [place] [phone] Social History Tobacco Use Types Packs/Day Years Used Date Smoking Tobacco: Never Smokeless Tobacco: Never Alcohol Use Standard Drinks/Week Comments No 0 (1 standard drink = 0.6 oz pur e alcohol) Depression Answer Date Recorded Feeling Down, Depressed, or Hopeless 2 02/10/2020 PHQ-9 Total Score 17 02/10/2020 [place] Scale Score: Not on file 0 Comments [...] on filedocumented in this encounter Care Teams Dress Shoe Inspector Relationship Specialty Start Date End Date Patricia Recinos MD [address] [place] [address] PCP - General Family Medicine 11/12/17 documented as of this encounter
--- OUTSIDE RECORDS SUMMARY | 2025-01-28 16:42 | XMS_ITS | Encounter Summary ---
Author Organization [facility] Address [address] [place] [address] Care Team Providers Care Braider Operator Name Role Phone Ulysses Pal Primary Care Provider [phone] Encounter Details Date Type Department Care Team (Late st Contact Info) Description 11/02/2023 Orders Only [facility] Interventional Radiology [address] [place] [address] Murali Camarillo MD [address] [place] [address] Social History Tobacco Use Types Packs/Day Years Used Date Smoking Tobacco: Never Smokeless Tobacco: Never Alcohol Use Standard Drinks/Week Comments Never 0 (1 standard drink = 0.6 oz pur e alcohol) [facility] Utilities Answer Date Recorded In the past [...] your living situation today? [facility] 10/31/2023 Comments Unknown Sex and Gender Information Value Date Recorded Sex Assigned at Female 06/27/2021 3:40 PM EDT Legal Sex Female 4:54 PM EDT Gender Identity Female 07/16/2017 9:44 AM EDT Sexual Orientation Straight 06/27/2021 3: 40 PM EDT documented as of this encounter Plan of Treatment Upcoming Encounters Date Type Department Care Team (Late st Contact Info) Description 02/10/2025 10:00 AM EST Office Visit [facility] [address] [place] [address] Agricultural Equipment Sales Manager: Margot Mendez MD [address] [place] [address] 04/07/2025 9:30 AM EST Office Visit [facility] [address] [place] [address] Zafar Stanley MD [address] [place] [address] 08/05/2025 1:00 PM EDT Office Visit [facility], Endocrinology [address] [place] [address] Layla Palmer MD [address] [place] [address] documented as of this encounter Visit Diagnoses Not on filedocumented in this encounter Care Teams Braider Operator Relationship Specialty Start Date End Date Ulysses Pal PA [facility] [address] [place] [address] PCP - General 03/19/24 documented as of this encounter
--- OUTSIDE RECORDS SUMMARY | 2025-01-28 16:42 | XMS_ITS | Encounter Summary ---
Author Organization [facility] Address [address] [place] [address] Care Team Providers Care Driller'S Assistant Name Role Phone Ulysses aPl Primary Care Provider [phone] Encounter Details Date Type Department Care Team (Late st Contact Info) Description 11/05/2023 Orders Only [facility] Interventional Radiology [address] [place] [address] [phone] Rhett Mary MD [address] [place], [place] [phone] Social History Tobacco Use Types Packs/Day Years Used Date Smoking Tobacco: Never Smokeless Tobacco: Never Alcohol Use Standard Drinks/Week Comments Never 0 (1 standard drink = 0.6 oz pur e alcohol) [facility] Utilities Answer Date Recorded In the past [...] Description 02/10/2025 10:00 AM EST Office Visit [facility] Rheumatology Clinic [address] [place] [address] Inside Sales Agent: Margot Mendez MD [address] [place] [address] 04/07/2025 9:30 AM EST Office Visit [facility] Neurology Clinic [address] [place] [address] Zafar Stanley MD [address] [place] [address] 08/05/2025 1:00 PM EDT Office Visit [facility], Endocrinology [address] [place] [address] Layla Palmer MD [address] [place] [address] documented as of this encounter Visit Diagnoses Not on filedocumented in this encounter Care Teams Driller'S Assistant Relationship Specialty Start Date End Date Ulysses Pal PA [facility] [address] [place] [address] PCP - General 03/19/24 documented as of this encounter
--- OUTSIDE RECORDS SUMMARY | 2025-01-28 16:42 | XMS_ITS | Encounter Summary ---
Author Organization [facility] Address [address] [place] [address] Care Team Providers Care Steam Press Tender Name Role Phone Ulysses Pal Primary Care Provider [phone] Araceli Rodriguez PRINTED PRODUCTS ASSEMBLER Unavailable [phone] Venessa Tracy TEST CENTER MANAGER Unavailable [phone] Reason for Visit * Reason Comments E-prescribing Refill Request Encounter Details Date Type Department Care Team (Late st Contact Info) Description 04/22/2024 Refill [facility] [address] [place] [address] Ulysses Pal PA [address] [place] [address] E-prescribing Refill Request Social History Tobacco Use Types Packs/Day Years [...] Description 02/17/2025 1:00 PM EST Consult (Initial) [facility] [address] [place] [address] Mirna Butts NP [address] [place] [address] urinary freqancy, burning, incontinence, numbness, prolapse 03/04/2025 4:00 PM EST Office Visit [facility] Orthopedic Surgery [address] [phone] Ildefonso Knox MD [address] [place] [address] Sy TPI 3 month l/s 12/03 documented as of this encounter Visit Diagnoses Diagnosis Anxiety Anxiety state, unspecified documented in this encounter Care Teams Steam Press Tender Relationship Specialty Start Date End Date Ulysses Pal PA [address] [place] [address] PCP - General Internal Medicine 12/28/23 Araceli Rodriguez, [facility] [address] [place] [address] Partner 02/11/24 Venessa Tracy NP [address] [place] [address] Partner 04/07/24 documented as of this encounter
--- OUTSIDE RECORDS SUMMARY | 2025-01-28 16:42 | XMS_ITS | Encounter Summary ---
Author Organization [facility] Address [address] [place] [address] Care Team Providers Care Quiller Machine Fixer Name Role Phone Ulysses Pal Primary Care Provider [phone] Araceli Rodriguez MEAT TRIMMER Unavailable [phone] Venessa Tracy SLACKLINE OPERATOR Unavailable [phone] Encounter Details Date Type Department Care Team (Late st Contact Info) Description 01/24/[address] [facility] Neurology [address] [facility] [address] [place] [address] Debby Miranda DO [address] [facility] [address] [place] [address] Social History Tobacco Use Types Packs/Day Years [...] as of this encounter Miscellaneous Notes * Result Encounter Note - Debby Miranda DO - 01/24/2024 3:29 PM EDT Can you please call and let her know that all of her blood work from her OV has finalized. There are no concerning findings. Her Vit B6 level is slightly high and for this I would recommend discontinuing any vitamin/supplementation that contains Vit B6. Thanks * Result Encounter Note - Miriam Garcia RN - 01/24/2024 3:29 PM EDT See phone encounter documented in this encounter Plan of Treatment Upcoming Encounters Date Type Department Care Team (Latest Contact Info) Description 02/17/2025 1:00 PM EST Consult (Initial) [facility] [address] [place], [place] [phone] Mirna Butts NP [address] [place], [place] [phone] urinary freqancy, burning, incontinence, numbness, prolapse 03/04/2025 4:00 PM EST Office Visit [facility] Orthopedic Surgery [address] [place] [address] [place] [phone] Ildefonso Knox MD [address] [place] [address] Sy TPI 3 month l/s 12/03 documented as of this encounter Procedures * Due to [place] state law, this organization might not be sharing negative HIV tests. Procedure Name Priority Date/Time Associated Diagnosis Comments VITAMIN B1, WHOLE BLOOD Routine 01/24/20 3:29 PM EDT Neuropathy MYASTHENIA GRAVIS PANEL 1 Routine 01/24/2024 3:29 PM EDT Subjective weakness VITAMIN B6 Routine 01/24/2024 3:29 PM EDT Neuropathy PROTEIN, TOTAL AND PROTEIN ELECTROPHORESIS (SPEP) W/ REFLEX GRAZYNA, SERUM Routine 01/24/2024 3:29 PM EDT Neuropathy METHYLMALONIC ACID Routine 01/24/2024 3: 29 PM EDT Neuropathy KAPPA/LAMBDA LIGHT CHAIN Routine 01/24/2024 3:29 PM EDT Neuropathy HEMOGLOBIN A1C Routine 01/24/2024 3:29 PM EDT Neuropathy Abnormal glucose FOLATE, SERUM Routine 01/24/2024 3:29 PM EDT Neuropathy VITAMIN B12 (CYANOCOBALAMIN), SERUM Routine 01/24/2024 3:29 PM EDT Neuropathy CREATINE KINASE (CK), SERUM Routine 01/24/2024 3:29 PM EDT Pain in both lower extremities documented in this encounter Results * Due to [facility] law, this organization might not be sharing negative HIV tests. * METHYLMALONIC ACID (01/24/2024 3:29 PM EDT) Methylmalonate 96 55 - 335 nmol/L [facility] Comment: Serum methylmalonic acid (MMA) levels are used to diagnose and monitor several rare inborn errors of metabolism, including methylmalonic aciduria. The enzymatic conversion of MMA to succinic acid requires vitamin B12 (adenosyl-cobalamin) as a cofactor. Serum MMA levels are also used for assessing functional vitamin B12 deficiency. Vitamin B12 is essential for neurodevelopment, particularly early in . Undiagnosed maternal vitamin B12 deficiency may be associated with adverse / outcomes, such as neural tube defects and intrauterine growth restriction. [facility] utilized Multi-Modal Decomposition (MMD) analysis to establish first and second trimester- specific MMA reference intervals in , as given below: MMA, First trimester (<13 wks gestation): 58-167 nmol/L MMA, Second trimester (13-23 wks gestation): 63-241 nmol/L This test was developed and its analytical performance characteristics have been determined by [facility]. It has not been cleared or approved by the FDA. This assay has been validated pursuant to the CLIA regulations and is used for clinical purposes. 01/24/2024 3:29 PM EDT 01/25/2024 2:54 AM EDT Narrative Resulting Agency Comment [id number] [facility] LABORATORY Final Result Performing Organization Address [facility] Co de Phone Number [facility] [address] [place] [address] * FOLATE, SERUM (01/24/2024 3:29 PM EDT) Folate 23.3 ng/mL [facility] Comment: Reference Range Low: <3.4 Borderline: 3.4-5.4 Normal: >5.4 01/24/2024 3:29 PM EDT 01/25/2024 2:54 AM EDT Narrative Resulting Agency Comment [id number] [facility] LABORAT[facility] Final Result Performing Organization Address [facility] Phone Number [facility] [address] [place] [address] * HEMOGLOBIN A1C (01/24/2024 3:29 PM EDT) Hemoglobin A1C 5.1 <5.7 % of total Hgb [facility] Comment: For the purpose of screening for the presence of diabetes: <5.7% Consistent with the absence of diabetes 5.7-6.4% Consistent with increased risk for diabetes (prediabetes) > or =6.5% Consistent with diabetes This assay result is consistent with a decreased risk of diabetes. Currently, no consensus exists regarding use of hemoglobin A1c for diagnosis of diabetes in children. According to [place] Diabetes Association (ADA) guidelines, hemoglobin A1c <7.0% represents optimal control in non- diabetic patients. Different metrics may apply to specific patient populations. Standards of Medical Care in Diabetes(ADA). Estimated Average Glucose 104 mg/dL (calc) [facility] 01/24/2024 3:29 PM EDT 01/25/2024 2:54 AM EDT Narrative Resulting Agency Comment [id number] [facility] LABORAT[facility] Final Result Performing Organization Address [facility] de Phone Number [facility] [address] [place] [address] * KAPPA/LAMBDA LIGHT CHAIN (01/24/2024 3:29 PM EDT) Immunoglobulin light chains.kappa 204 176 - 443 mg/dL [facility] Immunoglobulin light chains.lambda 119 91 - 240 mg/dL [facility] Immunoglobulin light chains.kappa/Immunoglob ulin light chains.lambda 1.71 1.29 - 2.55 [facility] Comment: This assay provides a measurement of the total kappa and the total lambda light chains, ie., the amount of free (unattached) light chain in circulation and the amount of light chain linked to heavy chain in intact immunoglobulin molecules. Assays for serum free light chain only, kappa and lambda with ratio, may be more useful in evaluating and managing light chain gammopathies including those associated with myeloma, lymphoproliferative disorders, and amyloidosis. 01/24/2024 3:29 PM EDT 01/25/2024 2:54 AM EDT Narrative Resulting Agency Comment [id number] [facility] LABORATORY Final Result Performing Organization Address [facility] Co de Phone Number [facility] [address] [place] [address] * (ABNORMAL) VITAMIN B6 (01/24/2024 3:29 PM EDT) Pathologist [facility] Pyridoxal phosphate 35.1(H) 2.1 - 21.7 ng/mL [facility] Comment: Vitamin supplementation within 24 hours prior to blood draw may affect the accuracy of the results. This test was developed and its analytical performance characteristics have been determined by [facility] [place], [place]. It has not been cleared or approved by the U.S. Food and Drug Administration. This assay has been validated pursuant to the CLIA regulations and is used for clinical purposes. 01/24/2024 3:29 PM EDT 01/25/2024 2:54 AM EDT Narrative Resulting Agency Comment [id number] [facility] LABORATORY Final Result Performing Organization Address [facility] Co de Phone Number [facility] [address] [place] [address] * VITAMIN B12 (CYANOCOBALAMIN), SERUM (01/24/2024 3:29 PM EDT) [facility] Vitamin B12 (Cobalamins) 688 200 - 1100 pg/mL [facility] 01/24/2024 3:29 PM EDT 01/25/2024 2:54 AM EDT Narrative Resulting Agency Comment [id number] [facility] LABORATORY Final Result Performing Organization Address City/[facility] Co de Phone Number [facility] [address] [place] [address] * VITAMIN B1, WHOLE BLOOD (01/24/2024 3:29 PM EDT) [facility] Thiamine 153 78 - 185 nmol/L [facility] Comment: Vitamin supplementation within 24 hours prior to blood draw may affect the accuracy of the results. This test was developed and its analytical performance characteristics have been determined by [place] It has not been cleared or approved by the U.S. Food and Drug Administration. This assay has been validated pursuant to the CLIA regulations and is used for clinical purposes. 01/24/2024 3:29 PM EDT 01/25/2024 2:54 AM EDT Narrative Resulting Agency Comment [id number] [facility] LABORATORY Final Result Performing Organization Address [facility] Co de Phone Number [facility] [address] [place] [address] * PROTEIN, TOTAL AND PROTEIN ELECTROPHORESIS (SPEP) W/ REFLEX GRAZYNA, SERUM (01/24/2024 3:29 PM EDT) [facility] Protein Total (Serum) 6.6 6.1 - 8.1 g/dL [facility] Albumin 4.4 3.8 - 4.8 g/dL [facility] Alpha 1 globulin 0.2 0.2 - 0.3 g/dL [facility] Alpha 2 globulin 0.6 0.5 - 0.9 g/dL [facility] Beta 1 globulin 0.4 0.4 - 0.6 g/dL [facility] Beta 2 globulin 0.3 0.2 - 0.5 g/dL [facility] Gamma globulin 0.8 0.8 - 1.7 g/dL [facility] Protein pattern SEE NOTE [facility] Comment: Normal Serum Protein Electrophoresis Pattern. No abnormal protein bands (M-protein) detected. 01/24/2024 3:29 PM EDT 01/25/2024 2:54 AM EDT Narrative Resulting Agency Comment [id number] Debby Miranda LABORATORY Final Result Performing Organization Address [facility] Co de Phone Number [facility] [address] [place] [address] * CREATINE KINASE (CK), SERUM (01/24/2024 3:29 PM EDT) CPK 130 29 - 143 U/L [facility] 01/24/2024 3:29 PM EDT 01/25/2024 2:54 AM EDT Narrative Resulting Agency Comment [id number] Debby Miranda LAB SAME DAY RESULT Final Result Performing Organization Address [facility] de Phone Number [facility] [address] [place] [address] * MYASTHENIA GRAVIS PANEL 1 (01/24/2024 3:29 PM EDT) Striated Muscle AB NEGATIVE NEGATIVE [facility] Comment: This test was developed and its analytical performance characteristics have been determined by [facility]. It has not been cleared or approved by FDA. This assay has been validated pursuant to the CLIA regulations and is used for clinical purposes. Striated muscle Ab - Titer CANCELED titer [facility] Comment: Test Not Performed. Screening test Negative or Not Detected. Titer not performed. Result canceled by the ancillary. Acetylcholine Receptor Binding AB <0.30 nmol/L [facility] Comment: Reference Ranges for Acetylcholine Receptor Binding Antibody: Negative: < or =0.30 nmol/L Equivocal: 0.31-0.49 nmol/L Positive: > or =0.50 nmol/L 01/24/2024 3:29 PM EDT 01/25/2024 2:54 AM EDT Narrative Resulting Agency Comment [id number] Debby Miranda LABORATORY Final Result Performing Organization Address [facility] Co de Phone Number [facility] [address] [place] [address] documented in this encounter Visit Diagnoses Diagnosis Subjective weakness Other malaise and fatigue Pain in both lower extremities Neuropathy Mononeuritis of unspecified site Abnormal glucose documented in this encounter Care Teams Quiller Machine Fixer Relationship Specialty Start Date End Date Ulysses Pal PA [address] [place] [address] PCP - General Internal Medicine 12/28/23 Araceli Rodriguez, [facility] [address] [place] [address] Partner 02/11/24 Venessa Tracy NP [address] [place] [address] Partner 04/07/24 documented as of this encounter
--- OUTSIDE RECORDS SUMMARY | 2025-01-28 16:42 | XMS_ITS | Encounter Summary ---
Author Organization [facility] Address [address] [place] [address] Care Team Providers Care Trekking Guide Name Role Phone Ulysses Pal Primary Care Provider [phone] Araceli Rodriguez ALTERATION HAND Unavailable Venessa Tracy SERVICE CONTROL OPERATOR Unavailable Encounter Details Date Type Department Care Team (Late st Contact Info) Description 11/14/2024 Orders Only [facility] [address] [place] [address] Satnam Garcia [address] [place] [address] Social History Tobacco Use Types Packs/Day Years [...] Description 02/17/2025 1:00 PM EST Consult (Initial) [facility] [address] [place], [place] [phone] Mirna Butts NP [address], [place] [phone] urinary freqancy, burning, incontinence, numbness, prolapse 03/04/2025 4:00 PM EST Office Visit [facility] [address] [facility] [address] [place] [address] Ildefonso Knox MD [address] [place] [address] Sy TPI 3 month l/s 12/03 documented as of this encounter Procedures * Due to [facility] law, this organization might not be sharing negative HIV tests. Procedure Name Priority Date/Time Associated Diagnosis Comments CULTURE, URINE, ROUTINE Routine 11/14/2024 3:30 PM EDT Dysuria URINALYSIS, COMPLETE INCLUDES DIPSTICK AND MICROSCOPIC Routine 11/14/2024 3:30 PM EDT Dysuria documented in this encounter Results * Due to [place] [employer] law, this organization might not be sharing negative HIV tests. * (ABNORMAL) URINALYSIS, COMPLETE INCLUDES DIPSTICK AND MICROSCOPIC (11/14/2024 3:30 PM EDT) Color (Urine) Yellow Yellow [facility] Clarity (Urine) Clear Clear [facility] Glucose (Urine) Trace(A) Negative [facility] Bilirubin (Urine) Negative Negative [facility] Ketones (Urine) Negative Negative [facility] Specific gravity (Urine) 1.010 1.005 - 1.030 [facility] Erythrocytes (Urine) Negative Negative [facility] pH (Urine) 6.0 5.0 - 8.0 [facility] Protein (Urine) Negative Negative [facility] Urobilinogen (Urine) 0.2 E.U./dL 0-1 E.U./dL [facility] Nitrite (Urine) Negative Negative [facility] Leukocyte esterase (Urine) Negative Negative [facility] WBC (Urine) NONE SEEN NONE SEEN /HPF [facility] RBC (Urine Sed) NONE SEEN NONE SEEN [facility] Epithelial cells (Urine sed) NONE SEEN NONE SEEN /LPF [facility] Casts (Urine sed) NONE SEEN NONE SEEN /LPF [facility] Crystals (Urine sed) NONE SEEN NONE SEEN /HPF [facility] Bacteria (Urine) NONE SEEN NONE SEEN /HPF [facility] 11/14/2024 3:30 PM EDT 11/14/2024 3:30 PM EDT Narrative [facility] - 11/14/2024 4:05 PM EDT Patient's primary care provider is: N/A Testing performed at: [facility], [address] [place] [address], [id number], Sales Professional: Quyen Allen MD us Hollis Esteban MD LAB SAME DAY RESULT Final Res ult [address] Quyen Allen MD * CULTURE, URINE, ROUTINE (11/14/2024 3:30 PM EDT) Bacteria Identified (Urine) SEE NOTE [facility] Comment: CULTURE, URINE, ROUTINE Micro Number: [id number] Test Status: Final Specimen Source: Urine Specimen Quality: Adequate Result: Less than 10,000 CFU/mL of single Gram negative organism isolated. No further testing will be performed. If clinically indicated, recollection using a method to minimize contamination, with prompt transfer to Urine Culture Transport Tube, is recommended. 11/14/2024 3:30 PM EDT 11/14/2024 3:30 PM EDT Narrative [facility] - 11/17/2024 8:01 AM EDT Patient's primary care provider is: N/A Testing performed at: [facility], [address] [place] [address], [phone], Sales Professional: TOPHER SHIRLEY MD Hollis Esteban MD LABORATORY Final Result [facility] [address] [place] [address] documented in this encounter Visit Diagnoses Diagnosis Dysuria documented in this encounter Care Teams Trekking Guide Relationship Specialty Start Date End Date Ulysses Pal PA [address] [place] [address] PCP - General Internal Medicine 12/28/23 Araceli Rodriguez, [facility] [address] [place] [address] Partner 02/11/24 Venessa Tracy NP [address] [place] [address] Partner 04/07/24 documented as of this encounter
--- OUTSIDE RECORDS SUMMARY | 2025-01-28 16:42 | XMS_ITS | Encounter Summary ---
Author Organization [facility] (historical information prior to 01/03/2025 only) Address [address] [place] [address] Care Team Providers Care Training Engineer Name Role Phone Patricia Recinos MD Primary Care Provider [phone] Encounter Details Date Type Department Care Team (Latest Contact Info) Description 01/10/2017 Ancillary Orders [facility] [address] [place] [address] Caryn Oliveira PA [address] [place] [address], [address] [place] [address] Excessive thirst; Acquired hypothyroidism Social History Tobacco Use Types Packs/Day Years [...] encounter Visit Diagnoses Diagnosis Excessive thirst Polydipsia Acquired hypothyroidism Unspecified hypothyroidism documented in this encounter Care Teams Training Engineer Relationship Specialty Start Date End Date Patricia Recinos MD [address] [place] [address], [address] [place] [address] PCP - General Family Medicine 11/12/17 documented as of this encounter
--- OUTSIDE RECORDS SUMMARY | 2025-01-28 16:42 | XMS_ITS | Encounter Summary ---
Author Organization [facility] (historical information prior to 01/03/2025 only) Address [address] [place] [address] Care Team Providers Care Job Printer Apprentice Name Role Phone Patricia Recinos MD Primary Care Provider [phone] Encounter Details Date Type Department Care Team (Late st Contact Info) Description 07/26/2023 Billing Encounter [facility] [address], [address] [place] [id number] Patricia Recinos MD [address] [place] [address], [facility] [address] [place] [address] Social History Tobacco Use Types Packs/Day Years Used Date Smoking Tobacco: Never Smokeless Tobacco: Never Alcohol Use Standard Drinks/Week Comments No 0 (1 standard drink = 0.6 oz pur e alcohol) Depression Answer Date Recorded Feeling Down, Depressed, or Hopeless 2 02/10/2020 PHQ-9 Total Score 17 02/10/2020 [place] Scale Score: Not on file 0 Comments [...] on filedocumented in this encounter Care Teams Job Printer Apprentice Relationship Specialty Start Date End Date Patricia Recinos MD [address] [place] [address] PCP - General Family Medicine 11/12/17 documented as of this encounter
--- OUTSIDE RECORDS SUMMARY | 2025-01-28 16:42 | XMS_ITS | Encounter Summary ---
Author Organization [facility] (historical information prior to 01/03/2025 only) Address [address] [place] [address] Care Team Providers Care Parts Designer Name Role Phone Patricia Recinos MD Primary Care Provider [phone] Encounter Details Date Type Department Care Team (Late st Contact Info) Description 07/16/2023 Telephone [facility] [address] [place] [address] Patricia Recinos MD [address] [place] [address] Social History Tobacco Use Types Packs/Day Years Used Date Smoking Tobacco: Never Smokeless Tobacco: Never Alcohol Use Standard Drinks/Week Comments No 0 (1 standard drink = 0.6 oz pur e alcohol) Depression Answer Date Recorded Feeling Down, Depressed, or Hopeless 2 02/10/2020 PHQ-9 Total Score 17 02/10/2020 [place] Scale Score: Not on file 0 Comments [...] Telephone Encounter - Caroline Reilly MA - 07/16/2023 12:48 PM EDT Spoke with [employer] and they need documentation stating the patient failed belsomra, and trazodone. She sent a mychart message regarding this but they insurance needs it documented from herPCP. She has tried both but had adverse effects. Trazadone: increased my anxiety, did not improve the quality of my sleep and left me feeling groggyall day. Belsomra: I had headaches and dizziness Please document that it is medically necessary, and that she has been on this for over 8 years due to her sleep disorder/insomnia. Once documented, I will fax over to the appeals department: documented in this encounter Plan of Treatment Not on file documented as of this encounter Visit Diagnoses Not on filedocumented in this encounter Care Teams Parts Designer Relationship Specialty Start Date End Date Patricia Recinos MD [address] [place] [address], [address] [place] [address] PCP - General Family Medicine 11/12/17 documented as of this encounter
--- OUTSIDE RECORDS SUMMARY | 2025-01-28 16:42 | XMS_ITS | Patient Health Record ---
Author Organization [facility], Address [address] [address] Care Team Providers Care Screen Printing Press Operator Name Role Phone Hungjake Bernice Unavailable [phone] Allergies No Known Allergies Reason For Referral No Information Social History Tobacco Use: Social History Observation Description Date Details (start date - stop date) Never Smoker NA - NA Tobacco Control (Standard) Question Answer Notes Tobacco use: Nonsmoker Problems Problem Type SNOMED Code ICD Code Onset Dates Problem Status W/U Status Risk Notes Problem Chronic pain syndrome (420336489) Chronic pain syndrome (G89.4) Active confirmed Vital Signs Heart Rate 104 /min 10/31/2024 Blood pressure diastolic 82 mm Hg 10/31/2024 Weight-kg 56.7 kg 10/31/2024 Height 65 in 10/31/2024 Blood pressure systolic 128 mm Hg 10/31/2024 Weight 125 lbs 10/31/2024 BMI 20.8 kg/m2 10/31/2024 Encounters Encounter Location Date Provider Diagnosis [place] [facility], [address] [address] 10/31/2024 Bernice Harrignton Chronic pain syndrom e G89.4 and Left leg pain M79.605 [place] [facility], [address] [address] 12/10/2024 Bernice Harrington Chronic pain syndrom e G89.4 and Left leg pain M79.605 [place] [facility], [address] [address] 10/30/2024 Bernice Harrington Assessments Encounter Date Diagnosis (ICD Code) Assessment Notes Treatment Notes Treatment Clinical Notes Section Notes 10/31/2024 Chronic pain syndrome (ICD-10 - G89.4) Amber is a 54 yo F with chronic LLE (>RLE) pain of unclear etiology. She has seen many differfent specialties and providers at various clinics and hospitals around [place]. Per her report, and from an extensive imaging and lab review of linked records, there has been no conclusive diagnosis for her pain; she reports that other doctors have claimer her sypmtoms are in her head or psychiatric. Based on our exam today, we also cannot determine a specific etiology for her pain. Diagnostic ultrasound of the peroneal nerves, which she requested, show know abnormality. She also requested injections but we advised her we need a diagnosis before we perform injections. Therefore I advised she repeat an EMG/NCS as the next step, and pending its results we may have a more specific area to perform a diagnostic ultrasound in the future. She will also work on getting us pertinent records in the meantime. A total of 60 minutes on the day of treatment was spent on this visit reviewing previous notes, interview, physical exam, discussion, ordering tests, adjusting medications, and documentation (excluding procedure time). 10/31/2024 Left leg pain (ICD-10 - M79.605) 12/10/2024 Chronic pain syndrome (ICD-10 - G89.4) Amber is a 54 yo F with chronic LLE (>RLE) pain of unclear etiology. She has seen many differfent specialties and providers at various clinics and hospitals around [place] and the country. Per her report, and from an extensive imaging and lab review of linked records, there has been no conclusive diagnosis for her pain; she reports that other doctors have claimed her sypmtoms are in her head or psychiatric. Based on our prior initial exam, we also could not determine a specific etiology for her pain. Diagnostic ultrasound of the peroneal nerves, which she requested, did not show abnormality. She also requested injections but we advised her we need a diagnosis before we perform injections. Therefore I advised she repeat an EMG/NCS as the next step, and today we reviewed that the EMG/NCS was normal. Next steps - Continue workup of spine and consideration of other procedures (considering MILD procedure) - Continue chiropractics PRN - I do not have any further diagnostic or therapeutic recommendations at this time. 12/10/2024 Left leg pain (ICD-10 - M79.605) 10/31/2024 Other [employer] dictatio n was used to assist with documentation of this note. While I did review this for errors, it is certainly possible that I may have overlooked some. If there is a confusing error, please do not hesitate to contact me for clarification. Thank you. 12/10/2024 Other Dragon dictation was used to assist with documentation of this note. While I did review this for errors, it is certainly possible that I may have overlooked some. If there is a confusing error, please do not hesitate to contact me for clarification. Thank you. This office visit was being conducted via telemedicine. The patient has a pre-existing patient relationship. The telemedicine interaction included all the recognized components of a patient physician encounter as if the encounter had occurred [id number] with the same standards of appropriate practice as those in traditional settings. Greater than 50% of the time spent was devoted to counseling and coordinating care including review of relevant medical history and medical records, pertinent lab data and studies before initiating the call. These records were also reviewed with the patient during the call, including discussing diagnostic evaluation and work up, planned therapeutic interventions and future disposition of care. The patient verbally consented to this visit conducted via telemedicine and reasonable care was taken to ensure security and privacy of the interactive virtual clinical encounter, which was conducted virtually using HIPAA compliant video conferencing technology. Plan Of Treatment Pending Test Test Name Order Date EMG/NCS Bilateral Lower Extremity 2024 Insurance Providers Payer Name Payer Address Payer Phone Subscriber Number Group Number Insured Name Patient Relationship to Insured Coverage Start Date Coverage End Date Medicare of [facility] J14 [address] [facility] [place] [id number] AMBER RODRIGUEZ Self - patient is the insured Medicaid of [facility] etts [address] [place] [id number] [phone] [id number] AMBER RODRIGUEZ Self - patient is the insured
--- OUTSIDE RECORDS SUMMARY | 2025-01-28 16:42 | XMS_ITS | Encounter Summary ---
Author Organization [facility] (historical information prior to 01/03/2025 only) Address [address] [place] [address] Care Team Providers Care Inspector Bicycle Name Role Phone Patricia Recinos MD Primary Care Provider [phone] Encounter Details Date Type Department Care Team (Late st Contact Info) Description 05/12/2024 Telephone [facility] [address] [place] [address] Patricia Recinos MD [address] [place] [address] Social History Tobacco Use Types Packs/Day Years Used Date Smoking Tobacco: Never Smokeless Tobacco: Never Alcohol Use Standard Drinks/Week Comments No 0 (1 standard drink = 0.6 oz pur e alcohol) Depression Answer Date Recorded Feeling Down, Depressed, or Hopeless 2 02/10/2020 PHQ-9 Total Score 17 02/10/2020 [place] Scale Score: Not on file 0 Comments [...] encounter Miscellaneous Notes * Telephone Encounter - Anjelica Krause MA - 05/12/2024 1:41 PM EST [facility] called in regards to Naltrexone script directions are not clear please resend script documented in this encounter Plan of Treatment Not on file documented as of this encounter Visit Diagnoses Not on filedocumented in this encounter Care Teams Inspector Bicycle Relationship Specialty Start Date End Date Patricia Recinos MD [address] [place] [address], [address] [place] [address] PCP - General Family Medicine 11/12/17 documented as of this encounter
--- OUTSIDE RECORDS SUMMARY | 2025-01-28 16:42 | XMS_ITS | Encounter Summary ---
Author Organization [facility] (historical information prior to 01/03/2025 only) Address [address] [place] [address] Care Team Providers Care Lace Burn Out Tender Name Role Phone Patricia Recinos MD Primary Care Provider [phone] Encounter Details Date Type Department Care Team (Late st Contact Info) Description 05/08/2024 Telephone [facility] [address] [place] [address] Anable Segura PA [address] [place] [address] Social History Tobacco Use Types Packs/Day Years Used Date Smoking Tobacco: Never Smokeless Tobacco: Never Alcohol Use Standard Drinks/Week Comments No 0 (1 standard drink = 0.6 oz pur e alcohol) Depression Answer Date Recorded Feeling Down, Depressed, or Hopeless 2 02/10/2020 PHQ-9 Total Score 17 02/10/2020 [place] Scale Score: Not on file 0 Comments [...] encounter Miscellaneous Notes * Telephone Encounter - Caryn Weston - 05/08/2024 10:18 AM EST [facility] called to advise prescription for: naltrexone 4.5 mg capsule DOES NOT EXIST only 50 mg capsule Please resend new script. documented in this encounter Plan of Treatment Not on file documented as of this encounter Visit Diagnoses Not on filedocumented in this encounter Care Teams Lace Burn Out Tender Relationship Specialty Start Date End Date Patricia Recinos MD [address] [place] [address], [address] [place] [address] PCP - General Family Medicine 11/12/17 documented as of this encounter
--- OUTSIDE RECORDS SUMMARY | 2025-01-28 16:42 | XMS_ITS | Encounter Summary ---
Author Organization [facility] (historical information prior to 01/03/2025 only) Address [address] [facility] [address] Care Team Providers Care Relays Draftsperson Name Role Phone Patricia Recinos MD Primary Care Provider [phone] Reason for Visit * Reason Comments Med Refill Encounter Details Date Type Department Care Team (Late st Contact Info) Description 03/27/2017 Refill [place] [facility] [place] [address] [facility] [place] [address] Angel-Judit Heck, DO [address] [facility] [address] [place] [address] Vaginal atrophy Social History Tobacco Use Types Packs/Day Years [...] as of this encounter Visit Diagnoses Diagnosis Vaginal atrophy Postmenopausal atrophic vaginitis documented in this encounter Care Teams Relays Draftsperson Relationship Specialty Start Date End Date Patricia Recinos MD [address] [place] [address], [address] [place] [address] PCP - General Family Medicine 11/12/17 documented as of this encounter
--- OUTSIDE RECORDS SUMMARY | 2025-01-28 16:42 | XMS_ITS | Encounter Summary ---
Author Organization [facility] (historical information prior to 01/03/2025 only) Address [address] [place] [address] Care Team Providers Care Armored Car Guard Name Role Phone Patricia Recinos MD Primary Care Provider [phone] Encounter Details Date Type Department Care Team (Late st Contact Info) Description 01/21/2020 Refill [facility] [address] [place] [address] Patricia Recinos MD [address] [place] [address] Social History Tobacco Use Types Packs/Day [...] encounter Miscellaneous Notes * Telephone Encounter - Nona De La Garza MA - 01/21/2020 1:46 PM EDT Patient requesting a refill of Lunesta 2mg to be sent to [facility] Patient last seen by Caryn 02/06/19 Has aa scheduled visit 02/10/20 With caryn This medication has not been clinically reviewed by our staff documented in this encounter Plan of Treatment Not on file documented as of this encounter Visit Diagnoses Not on filedocumented in this encounter Care Teams Armored Car Guard Relationship Specialty Start Date End Date Patricia Recinos MD [address] [place] [address], [address] [place] [address] PCP - General Family Medicine 11/12/17 documented as of this encounter
--- OUTSIDE RECORDS SUMMARY | 2025-01-28 16:42 | XMS_ITS | Encounter Summary ---
Author Organization [facility] (historical information prior to 01/03/2025 only) Address [address] [place] [address] Care Team Providers Care Cartoon Artist Name Role Phone Patricia Recinos MD Primary Care Provider [phone] Encounter Details Date Type Department Care Team (Late st Contact Info) Description 11/04/2018 Billing Encounter [facility] [address] [place] [id number] Caryn Oliveira PA [address] [place] [address], [address] [place] [address] Social History Tobacco Use Types [...] on filedocumented in this encounter Care Teams Cartoon Artist Relationship Specialty Start Date End Date Patricia Recinos MD [address] [place] [address], [address] [place] [address] PCP - General Family Medicine 11/12/17 documented as of this encounter
--- OUTSIDE RECORDS SUMMARY | 2025-01-28 16:42 | XMS_ITS | Encounter Summary ---
Author Organization [facility] (historical information prior to 01/03/2025 only) Address [address] [place] [address] Care Team Providers Care Clinical Engineer Name Role Phone Patricia Recinos MD Primary Care Provider [phone] Encounter Details Date Type Department Care Team (Late st Contact Info) Description 07/26/2023 Billing Encounter [facility] [address], [address] [place] [address] Cleopatra Israel PA [address] [place] [address], [address] [place] [address] Social History Tobacco Use Types Packs/Day Years Used Date Smoking Tobacco: Never Smokeless Tobacco: Never Alcohol Use Standard Drinks/Week Comments No 0 (1 standard drink = 0.6 oz pur e alcohol) Depression Answer Date Recorded Feeling Down, Depressed, or Hopeless 2 02/10/2020 PHQ-9 Total Score 17 02/10/2020 [place] Scale Score: Not on file 0 Comments [...] on filedocumented in this encounter Care Teams Clinical Engineer Relationship Specialty Start Date End Date Patricia Recinos MD [address] [place] [address], [address] [place] [address] PCP - General Family Medicine 11/12/17 documented as of this encounter
--- OUTSIDE RECORDS SUMMARY | 2025-01-28 16:42 | XMS_ITS | Encounter Summary ---
Author Organization [facility] (historical information prior to 01/03/2025 only) Address [address] [place] [address] Care Team Providers Care Healthcare Manager Name Role Phone Patricia Recinos MD Primary Care Provider [phone] Reason for Visit * Reason Onset Date Comments Med Refill 07/28/2020 Encounter Details Date Type Department Care Team ([facility] st Contact Info) Description 07/28/2020 Refill [facility] [address] [place] [address], [address] [place] [address] Caryn Oliveira PA [address] [place] [address], [address] [place] [address] Social History Tobacco Use Types Packs/Day Years Used Date Smoking Tobacco: Never Smokeless Tobacco: Never Alcohol Use Standard Drinks/Week Comments No 0 (1 standard drink = 0.6 oz pur e alcohol) Depression Answer Date Recorded Feeling Down, Depressed, or Hopeless 2 02/10/2020 PHQ-9 Total Score 17 02/10/2020 [place] Scale Score: Not on file 0 Comments Unknown Sex and Gender Information Value Date Recorded Sex Assigned at Not on file Legal Sex Female 2:49 PM EST Gender Identity Not on file Sexual Orientation Not on file Occupation Industry Job Start Date Job End Date unemployed Not on file Not on file Not on file COVID-19 Exposure Response Date Recorded In the last month, have you been in contact with someone who was confirmed or suspected to have Coronavirus / COVID-19? Unable to assess 07/07/2020 1:39 PM EDT documented as of this encounter Plan of Treatment Not on file documented as of this encounter Visit Diagnoses Not on filedocumented in this encounter Care Teams Healthcare Manager Relationship Specialty Start Date End Date Patricia Recinos MD [address] [place] [address], [facility] [address] [id number] PCP - General Family Medicine 11/12/17 documented as of this encounter
--- OUTSIDE RECORDS SUMMARY | 2025-01-28 16:42 | XMS_ITS | Encounter Summary ---
Author Organization [facility] Address [address] [place] [address] Care Team Providers Care Vault Teller Name Role Phone Ulysses Pal Primary Care Provider Araceli Rodriguez MITER CUTTER Unavailable Venessa Tracy LIFT TEAM TECHNICIAN Unavailable Encounter Details Date Type Department Care Team (Late st Contact Info) Description 01/26/2024 Telephone [facility] Night Triage [address] [place] [address] Ulysses Pal PA [address] [place] [address] Social History Tobacco Use Types Packs/Day Years [...] encounter Miscellaneous Notes * Telephone Encounter - Mariela Culver - 01/26/2024 1:19 PM EDT Pt calling to inform PCP of her ER visit and Neurologist visit, pt went to ER with worsening symptoms of Neuropathy and losing her ability to swallow and urinate, she collapsed and was taken into ER,she was d/c with request to ask PCP for a steriod dose to decrease inflammatory process, pt was asked to call office Sunday am. Nurse did also advise pt that if she has worsening symptoms over weekend to again visit an ER, she had gone to [facility], and then left to [place]. documented in this encounter Plan of Treatment Upcoming Encounters Date Type Department Care Team (Latest Contact Info) Description 02/17/2025 1:00 PM EST Consult (Initial) [facility] [address] [place], [place] [phone] Mirna Butts NP [address] [place], [place] [phone] urinary freqancy, burning, incontinence, numbness, prolapse 03/04/2025 4:00 PM EST Office Visit [facility] Orthopedic Surgery [address] [facility] [address] [place] [phone] Ildefonso Knox MD [address] [place] [address] Sy TPI 3 month l/s 12/03 documented as of this encounter Visit Diagnoses Not on filedocumented in this encounter Care Teams Vault Teller Relationship Specialty Start Date End Date Ulysses Pal PA [address] [place] [address] PCP - General Internal Medicine 12/28/23 Araceli Rodriguez, [facility] [address] [place] [address] Partner 02/11/24 Venessa Tracy NP [address] [place] [address] Partner 04/07/24 documented as of this encounter
--- OUTSIDE RECORDS SUMMARY | 2025-01-28 16:42 | XMS_ITS ---
Author Name [facility] Organization Unknown History of Medication Use Medication Directions Dispensed Refills Start Date End Date Stat acetaminophen 300 mg-codeine 30 mg tablet TAKE 1 TABLET BY MOUTH EVERY 6 HOURS NEEDED FOR PAIN active bupropion HCl XL 300 mg 24 hr tablet, extended release TAKE 1 TABLET BY MOUTH DAILY active doxycycline hyclate 100 mg capsule TAKE 1 CAPSULE BY MOUTH TWICE DAILY FOR 7 DAYS active estradiol 0.05 mg/24 hr weekly transdermal patch APPLY 1 PATCH TOPICALLY TO THE SKIN 1 TIME A WEEK active famotidine 20 mg tablet TAKE 1 TABLET BY MOUTH TWICE DAILY active Libra Alliance Tino 3 [place] USE DIRECTED active lorazepam 0.5 mg tablet TAKE 1 TO 2 TABLETS BY MOUTH 30 TO 60 MINUTES PRIOR TO AIRPLANE TRAVEL active metronidazole 0.75 % topical cream APPLY TOPICALLY ONCE TO TWICE DAILY TO THE AFFECTED AREA ON FACE active mometasone 0.1 % topical cream APPLY TOPICALLY TO AFFECTED AREA DAILY active nortriptyline 25 mg capsule TAKE 1 CAPSULE BY MOUTH EVERY NIGHT active pregabalin 75 mg capsule TAKE 1 CAPSULE BY MOUTH THREE TIMES DAILY DIRECTED active progesterone micronized 100 mg capsule TAKE 1 CAPSULE BY MOUTH AT BEDTIME active tretinoin 0.1 % topical cream APPLY TOPICALLY TO THE AFFECTED AREA 1 TIME AT NIGHT active triamcinolone acetonide 0.1 % topical cream APPLY TOPICALLY TO THE AFFECTED AREA TWICE DAILY active Problems Problem Status Onset Date Problem Type Date of Resoluti on Source Carpal tunnel syndrome of right wrist active 2024-09-17 ProblemAct [facility] Carpal tunnel syndrome of left wrist active 2024-09-17 ProblemAct [facility] Encounters Encounter Type Encounter Reason Primary Diagnosis Location Date Ambulatory [facility] 01/26/2025 Ambulatory [facility] 01/26/2025 Ambulatory [facility] 01/26/2025 Ambulatory [facility] 01/26/2025 Ambulatory [facility] 01/19/2025 [facility] 12/10/2024 [facility] 12[facility]05/2024 [facility] 12[facility]03/2024 [facility] 12/02/2024 [facility] 11[facility]28/2024 [facility] 11/17/2024 [facility] 11/17/2024 [facility] 11/14/2024 [facility] 11[facility]13/2024 [facility] 11/13/2024 [facility] 11/13/2024 [facility] 11[facility]12/2024 [facility] 11[facility]10/2024 [facility] 11/07/2024 [facility] 11/07/2024 [facility] 09/25/2024 [facility] 09/22/2024 [facility] 09/17/2024 [facility] 09/17/2024 [facility] 09/16/2024 [facility] 09/12/2024 [facility] 09/11/2024 [facility] 09/11/2024 [facility] 09/11/2024 [facility] 09/09/2024 [facility] 09/08/2024 [facility] 09/08/2024 [facility] 09/08/2024 [facility] 08/22/2024 [facility] 08/21/2024 Ambulatory no current diagnosis no current diagnosis [facility] 12/27/2023 Care Team Organization Name Specialty Phone Email Start Date End [facility] 12/27/2023 [facility] 12/27/2023
--- OUTSIDE RECORDS SUMMARY | 2025-01-28 16:42 | XMS_ITS | Encounter Summary ---
Author Organization [facility] Address [address] [place] [address] Care Team Providers Care Dairy Feed Worker Name Role Phone Ulysses Pal Primary Care Provider [phone] Araceli Rodriguez BROWN SOURER Unavailable [phone] Venessa Tracy LONG CHAIN DYEING MACHINE OPERATOR Unavailable [phone] Reason for Visit * Reason Onset Date Comments Refill Request 04/22/2024 Encounter Details Date Type Department Care Team (Late st Contact Info) Description 04/22/2024 Refill [facility] [address] [place] [address] Ulysses Pal PA [address] [place] [address] Refill Request Social History Tobacco Use Types [...] encounter Miscellaneous Notes * Telephone Encounter - Marsha Velásquez Pharmacy Navigator - 04/22/2024 1:37 PM EST Done on other encounter documented in this encounter Plan of Treatment Upcoming Encounters Date Type Department Care Team (Latest Contact Info) Description 02/17/2025 1:00 PM EST Consult (Initial) [facility] [address] [place] [address] Mirna Butts NP [address] [place] [address] urinary freqancy, burning, incontinence, numbness, prolapse 03/04/2025 4:00 PM EST Office Visit [facility] Orthopedic Surgery [address] [place] [phone] Ildefonso Knox MD [address] [place] [address] Sy TPI 3 month l/s 12/03 documented as of this encounter Visit Diagnoses Diagnosis Anxiety Anxiety state, unspecified documented in this encounter Care Teams Dairy Feed Worker Relationship Specialty Start Date End Date Ulysses Pal PA [address] [place] [address] PCP - General Internal Medicine 12/28/23 Araceli Rodriguez, [facility] [address] [place] [address] Partner 02/11/24 Venessa Tracy NP [address] [place] [address] Partner 04/07/24 documented as of this encounter
--- OUTSIDE RECORDS SUMMARY | 2025-01-28 16:42 | XMS_ITS | Encounter Summary ---
Author Organization [facility] Address [address] [place] [address] [address] Care Team Providers Care Purchasing Specialist Name Role Phone Alireza Daniel Md Primary Care Provider [phone] Poc, Non Atrius Pcp Or Primary Care Provider Esperanza vailable Reason for Visit * Reason Comments Other Encounter Details Date Type Department Care Team (Late st Contact Info) Description 01/16/2014 Telephone [facility] [address] [place] [phone] Saranya Ahuja Error (Primary Dx) Social History Tobacco Use Types [...] Procedure Name Priority Date/Time Associated Diagnosis Comments STREP A ANTIGEN DETECTION W OPTICAL Routine 01/16/2014 documented in this encounter Results * RAPID STREP (OFFICE TEST) (01/16/2014) RAPID STREP Negative Comment:error, wrong patient [facility] Edited Result - Final documented in this encounter Visit Diagnoses Diagnosis ERROR- Primary documented in this encounter Care Teams Purchasing Specialist Relationship Specialty Start Date End Date Alireza Daniel MD [address] [place] [address] PCP - General Internal Medicine 03/18/12 06/10/22 Poc, Non Atrius Pcp Or PCP - General 06/11/22 documented as of this encounter
--- OUTSIDE RECORDS SUMMARY | 2025-01-28 16:42 | XMS_ITS | Encounter Summary ---
Author Organization [facility] (historical information prior to 01/03/2025 only) Address [address] [place] [address] Care Team Providers Care Leak Patcher Name Role Phone Patricia Recinos MD Primary Care Provider [phone] Reason for Visit * Reason Onset Date Comments Med Refill 04/15/2020 Encounter Details Date Type Department Care Team ([facility] st Contact Info) Description 04/15/2020 Refill [facility] [address] [place] [address], [address] [place] [address] Caryn Oliveira PA [address] [place] [address], [address] [place] [address] Social History Tobacco Use Types Packs/Day Years Used Date Smoking Tobacco: Never Smokeless Tobacco: Never Alcohol Use Standard Drinks/Week Comments No 0 (1 standard drink = 0.6 oz pur e alcohol) Depression Answer Date Recorded Feeling Down, Depressed, or Hopeless 2 02/10/2020 PHQ-9 Total Score 17 02/10/2020 [place] Scale Score: Not on file 0 Comments [...] have Coronavirus / COVID-19? Unable to assess 03/18/2020 3:57 PM EST documented as of this encounter Plan of Treatment Not on file documented as of this encounter Visit Diagnoses Not on filedocumented in this encounter Care Teams Leak Patcher Relationship Specialty Start Date End Date Patricia Recinos MD [address] [place] [address], [address] [place] [address] PCP - General Family Medicine 11/12/17 documented as of this encounter
--- OUTSIDE RECORDS SUMMARY | 2025-01-28 16:42 | XMS_ITS | Encounter Summary ---
Author Organization [facility] Address [address] [place] [address] Care Team Providers Care Electro Mechanic Name Role Phone Ulysses Pal Primary Care Provider [phone] Araceli Rodriguez RODENT CONTROL WORKER Unavailable [phone] Venessa Tracy SENIOR TECHNICAL EDITOR Unavailable [phone] Reason for Visit * Reason Comments Patient Questions Encounter Details Date Type Department Care Team ([facility] st Contact Info) Description 10/01/2024 Telephone [facility] Orthopedic Surgery [address] [phone] Ildefonso Knox MD [address] [place] [address] Patient Questions Social History Tobacco Use Types [...] encounter Miscellaneous Notes * Telephone Encounter - Jazmín Fernandez 10/06/2024 12:34 PM EDT Patient already aware she will go through her PCP office for the PT1 * Telephone Encounter - Rin Cool - 10/02/2024 10:56 AM EDT Carlos Noyola, Does the patients PCP fill out the PT1 forms for transportation? * Telephone Encounter - Tanya Urban - 10/01/2024 8:55 AM EDT The patient would like to know if her PT1 forms can bee filled out by DR. Knox for transportation for her appointments on 10/22 and 11/10 documented in this encounter Plan of Treatment Upcoming Encounters Date Type Department Care Team (Latest Contact Info) Description 02/17/2025 1:00 PM EST Consult (Initial) [facility] [address] [place] [address] Mirna Butts NP [address] [place] [address] urinary freqancy, burning, incontinence, numbness, prolapse 03/04/2025 4:00 PM EST Office Visit [facility] Orthopedic Surgery [address] [phone] Ildefonso Knox MD [address] [place] [address] Sy TPI 3 month l/s 12/03 documented as of this encounter Visit Diagnoses Not on filedocumented in this encounter Care Teams Electro Mechanic Relationship Specialty Start Date End Date Ulysses Pal PA [address] [place] [address] PCP - General Internal Medicine 12/28/23 Araceli Rodriguez RODENT CONTROL WORKER [address] [facility] [place] [address] Partner 02/11/24 Venessa Tracy NP [address] [place] [address] Partner 04/07/24 documented as of this encounter
--- OUTSIDE RECORDS SUMMARY | 2025-01-28 16:42 | XMS_ITS ---
Author Name DULCE HAQ Address [address] [place] [address] Phone [facility], Address [address] [place] [address] Phone Care Team Providers Care Pleating Machine Operator Name Role Phone MD DULCE HAQ Unavailable [phone] TO FINCH Unavailable ALLERGIES, ADVERSE REACTIONS AND ALERTS Allergy Name Allergy Date Allergy Status Allergy Severity Allergy Reaction NO KNOWN DRUG ALLERGIES PROBLEMS Problem None PROCEDURES Procedure Description Date Notes NO PROCEDURES PERFORMED ASSESSMENTS Assessment None PLAN OF TREATMENT Assessment Planned Activity LOINC Planned Rommel e None CONSULTATION NOTE Note Author Date None HISTORY AND PHYSICAL NOTE Note Author Date None PROGRESS NOTE Note Author Date None DISCHARGE SUMMARY Note Author Date None CHIEF COMPLAINT AND REASON FOR VISIT FUNCTIONAL STATUS Functional or Cognitive Find ing None MENTAL STATUS Cognitive Finding None ENCOUNTERS Encounter Type Provider Diagnoses Start Date Location Disc harged to None SOCIAL HISTORY Social Status Observation Never Smoker Sex: Female CARE TEAM INFORMATION Pleating Machine Operator Provider ID Role Location Phone TO JOSETTE [phone] PHYSICIAN [address] [place] [address] DULCE HAQ [id number] PHYSICIAN [address] [place] [address] INSURANCE PROVIDERS Payer Name Policy type / Coverage type Covered constitution party ID Policy Cisse MEDICARE Medicare [id number] [facility] Medicaid [id number] SELF
--- OUTSIDE RECORDS SUMMARY | 2025-01-28 16:42 | XMS_ITS | Encounter Summary ---
Author Organization [facility] Address [address] [place] [address] Care Team Providers Care Window Glass Cutter Off Name Role Phone Ross Fernandez MD Primary Care Provider [phone] Ross Fernandez MD Primary Care Provider [phone] Jayesh Lopez MD Primary Care Provider [phone] Ross Fernandez MD Unavailable [phone] Ross Fernandez MD Unavailable [phone] Neda Coley MD Unavailable [phone] Ross Fernandez MD Primary Care Provider [phone] Alireza Daniel MD Unavailable [phone] Dayna John NP Primary Care Provider [phone] Karen Gonzalez MD Unavailable Rajeev Stevens MD Unavailable [phone] Nichelle Parks MD Unavailable [phone] Patricia Recinos MD Primary Care Provider [phone] Unknown, Provider Primary Care Provider Unava ilable Encounter Details Date Type Department Care Team (Late st Contact Info) Description 03/03/2014 Clinical Conversion Encounter GENERAL CONVERSION Татьяна Ahumada [place] Social History Tobacco Use Types Packs/Day Years Used Date Smoking Tobacco: Never Comments Unknown Sex and Gender Information Value Date Recorded Sex Assigned at Not on file Legal Sex Female 6:23 AM EST Gender Identity Not on file Sexual Orientation Not on file documented as of this encounter Progress Notes * Татьяна Ahumada MA - 11/03/2014 6:30 PM EDT Secure Message Detail Subject: Preload Visit Date: 03/03/2014 3:26 PM Message: Patient Name: Amber Dahl Date of : 1970 Appointment Type: Preload Time In: 3:26 PM Current Problems: Hypothyroidism (ICD-244.9) (FPY00-N53.9) Fatigue (ICD-780.79) (ZOH19-J11.83) Adjustment disorder with depressed mood (ICD-309.0) (SJB63-S62.21) Insomnia (ICD-780.52) (OMY15-D09.00) Rheumatoid arthritis (ICD-714.0) (MAN38-Y99.9) Active Medications : SYNTHROID 25 MCG TABS (LEVOTHYROXINE SODIUM) 1 tab daily BUPROPION HCL ER (SR) 150 MG [id number] (BUPROPION HCL) 1 tab daily LUNESTA 2 MG TABS (ESZOPICLONE) 1 tab as needed for insomia signed by Татьяна Ahumada 03/03/2014 3:29PM documented in this encounter Plan of Treatment Upcoming Encounters Date Type Department Care Team (Late st Contact Info) Description 02/02/2025 2:15 PM EST Office Visit [facility] Orthopedics [facility] [address] [place] [address], [address] [place] [address] Anton Treviño MD [address] [place] [phone] (Work) In Person with Physician documented as of this encounter Visit Diagnoses Not on filedocumented in this encounter Care Teams Window Glass Cutter Off Relationship Specialty Start Date End Date Ross Fernandez MD [address] [place] [address] PCP - General 02/17/14 10/01/14 Ross Fernandez MD [address] [place] [address] PCP - General 10/02/14 04/25/17 Jayesh Lopez MD [address] [phone] PCP - General 04/26/17 07/09/17 Ross Fernandez MD [address] [place] [address] PCP - General Internal Medicine 10/29/17 11/11/17 Dayna John NP [address] [place] [address] PCP - General Family Practice 10/15/18 12/18/24 Patricia Recinos MD [address] [address] PCP - General Family Practice 11/12/17 10/14/18 Twila, MD Michael [address] [place] [address] PCP - General 12/19/24 Ross Fernandez MD [address] [place] [address] 04/26/17 07/09/17 Ross Fernandez MD [address] [place] [address] 10/02/14 07/09/17 Neda Coley MD [address] [place] [address] [place] [phone] 02/17/14 07/09/17 Alireza Daniel MD [address] [place] [address] Internal Medicine 03/28/12 Karen Gonzalez MD [address] [place] [address] Family Practice 09/01/23 Rajeev Stevens MD [address] [place] [address] Family Practice 07/04/17 Nichelle Parks MD [address] [place] [address] Family Practice 09/01/23 documented as of this encounter
--- OUTSIDE RECORDS SUMMARY | 2025-01-28 16:42 | XMS_ITS | Encounter Summary ---
Author Organization [facility] Address [address] [place] [address] Care Team Providers Care Children'S Tutor Name Role Phone Ulysses Pal Primary Care Provider [phone] Encounter Details Date Type Department Care Team (Late st Contact Info) Description 11/29/2023 Social Work [facility] Radiation Oncology [address] [place] [address] Rashmi Lemus, [facility] [address] [place] [address] Social History Tobacco Use Types Packs/Day Years Used Date Smoking Tobacco: Never Smokeless Tobacco: Never Alcohol Use Standard Drinks/Week Comments Never 0 (1 standard drink = 0.6 oz pur e alcohol) [facility] Utilities Answer Date Recorded In the past 12 months has e electric, gas, oil, or water company [...] Description 02/10/2025 10:00 AM EST Office Visit [facility] [address] [place] [address] Corn Cutter Operator: Margot Mendez MD [address] [place] [address] 04/07/2025 9:30 AM EST Office Visit [facility] [address] [place] [address] Zafar Stanley MD [address] [place] [address] 08/05/2025 1:00 PM EDT [facility] End[facility]inology [address] [place] [address] Layla Palmer MD [address] [place] [address] documented as of this encounter Visit Diagnoses Not on filedocumented in this encounter Care Teams Children'S Tutor Relationship Specialty Start Date End Date Ulysses Pal PA [facility] [address] [place] [address] PCP - General 03/19/24 documented as of this encounter
--- OUTSIDE RECORDS SUMMARY | 2025-01-28 16:42 | XMS_ITS | Encounter Summary ---
Author Organization [facility] Address [address] [place] [address] Care Team Providers Care Senior Mortgage Underwriter Name Role Phone Neda Coley MD Primary Care Provider [phone] Ross Fernandez MD Primary Care Provider + [phone] Ross Fernandez MD Primary Care Provider + [phone] Jayesh Lopez MD Primary Care Provider [phone] Ross Fernandez MD Unavailable [phone] Ross Fernandez MD Unavailable [phone] Neda Coley MD Unavailable [phone] Ross Fernandez MD Primary Care Provider + [phone] Alireza Daniel MD Unavailable [phone] Dayna John NP Primary Care Provider [phone] Karen Gonzalez MD Unavailable Rajeev Stevens MD Unavailable [phone] Nichelle Parks MD Unavailable [phone] Patricia Recinos MD Primary Care Provider + [phone] Unknown, Provider MD Primary Care Provider Unava ilable Encounter Details Date Type Department Care Team (Late st Contact Info) Description 02/16/2014 Clinical Conversion Encounter [facility] [place] [address] [place] [address] Mellisa Galan MA Social History Tobacco Use Types Packs/Day Years Used Date Smoking Tobacco: Never Comments Unknown Sex and Gender Information Value Date Recorded Sex Assigned at Not on file Legal Sex Female 6:23 AM EST Gender Identity Not on file Sexual Orientation Not on file documented as of this encounter Miscellaneous Notes * Telephone Encounter - Mellisa Galan - 11/23/2014 2:31 PM EDT Phone Note Outgoing Call Call back at Cell Call placed by: Mellisa Garces, February 16, 2014 11:00 AM Call placed to: Patient Summary of call: pt sent us a message through the portal requesting an christiano (due to new Rx that was started on 02/09/14-side effects) or to speak to SENIOR TECHNICAL SPECIALIST l/m on vm to get more detail and schedule an christiano or req SENIOR TECHNICAL SPECIALIST to call her back Follow-up for Phone Call all set, see phone note from 3pm Phone call completed Follow-up by: Mellisa Garces, February 16, 2014 4:03 PM signed by Mellisa Garces 02/16/2014 4:03PM documented in this encounter Plan of Treatment Upcoming Encounters Date Type Department Care Team (Late st Contact Info) Description 02/02/2025 2:15 PM EST Office Visit [facility] Orthopedics [facility] [address] [place] [address], [address] [place] [address] Anton Treviño MD [facility] Beatriz Powell [address] [place] [phone] (Work) In Person with Physician documented as of this encounter Visit Diagnoses Not on filedocumented in this encounter Care Teams Senior Mortgage Underwriter Relationship Specialty Start Date End Date Neda Coley MD [address] [facility] [place] [phone] PCP - General 02/09/14 02/16/14 Ross Fernandez MD [address] [place] [address] PCP - General 02/17/14 10/01/14 Ross Fernandez MD [address] [place] [address] PCP - General 10/02/14 04/25/17 Jayesh Lopez MD [address] [place] [phone] PCP - General 04/26/17 07/09/17 Ross Fernandez MD [address] [place] [address] PCP - General Internal Medicine 10/29/17 11/11/17 Dayna John NP [address] [place] [address] PCP - General Family Practice 10/15/18 12/18/24 Patricia Recinos MD [address] [place] [address] PCP - General Family Practice 11/12/17 10/14/18 Twila, MD Michael [address] [place] [address] PCP - General 12/19/24 Ross Fernandez MD [address] [place] [address] 04/26/17 07/09/17 Ross Fernandez MD [address] [place] [address] 10/02/14 07/09/17 Neda Coley MD [address] [facility] [place] [phone] 02/17/14 07/09/17 Alireza Daniel MD [address] [facility] [place] [address] Internal Medicine 03/28/12 Karen Gonzalez MD [address] [place] [address] Family Practice 09/01/23 Rajeev Stevens MD [address] [place] [address] Family Practice 07/04/17 Nichelle Parks MD [address] [place] [address] Family Practice 09/01/23 documented as of this encounter
--- OUTSIDE RECORDS SUMMARY | 2025-01-28 16:43 | XMS_ITS | Encounter Summary ---
Author Organization [facility] (historical information prior to 01/03/2025 only) Address [address] [place] [address] Care Team Providers Care Granite Polisher Name Role Phone Patricia Recinos MD Primary Care Provider [phone] Encounter Details Date Type Department Care Team (Late st Contact Info) Description 05/12/2008 Scan Document - View in Chart Hollis Gannon MD [address] [place] [address] [phone] Hollis Gannon MD [address] [place] [address] Social History Tobacco Use Types Packs/Day Years [...] on filedocumented in this encounter Care Teams Granite Polisher Relationship Specialty Start Date End Date Patricia Recinos MD [address] [place] [address], [facility] [address] [place] [address] PCP - General Family Medicine 11/12/17 documented as of this encounter
--- OUTSIDE RECORDS SUMMARY | 2025-01-28 16:43 | XMS_ITS | Encounter Summary ---
Author Organization [facility] (historical information prior to 01/03/2025 only) Address [address] [place] [address] Care Team Providers Care Sustainability Project Coordinator Name Role Phone Patricia Recinos MD Primary Care Provider [phone] Reason for Visit * Reason Comments Med Refill Encounter Details Date Type Department Care Team (Late st Contact Info) Description 02/01/2024 Refill [facility] [address] [place] [address] Anabel Segura PA [address] [place] [address] Social History Tobacco Use Types Packs/Day Years Used Date Smoking Tobacco: Never Smokeless Tobacco: Never Alcohol Use Standard Drinks/Week Comments No 0 (1 standard drink = 0.6 oz pur e alcohol) Depression Answer Date Recorded Feeling Down, Depressed, or Hopeless 2 02/10/2020 PHQ-9 Total Score 17 02/10/2020 [place] Scale Score: Not on file 0 Comments [...] on filedocumented in this encounter Care Teams Sustainability Project Coordinator Relationship Specialty Start Date End Date Patricia Recinos MD [address] [place] [address] PCP - General Family Medicine 11/12/17 documented as of this encounter
--- OUTSIDE RECORDS SUMMARY | 2025-01-28 16:43 | XMS_ITS | Encounter Summary ---
Author Organization [facility] (historical information prior to 01/03/2025 only) Address [address] [place] [address] Care Team Providers Care Clerk Television Production Name Role Phone Patricia Recinos MD Primary Care Provider [phone] Reason for Visit * Reason Onset Date Comments Med Refill 08/08/2021 Encounter Details Date Type Department Care Team ([facility] st Contact Info) Description 08/08/2021 Refill [facility] [address] [place] [address], [address] [place] [address] Caryn Oliveira PA [address] [place] [address], [address] [place] [address] Social History Tobacco Use Types Packs/Day Years Used Date Smoking Tobacco: Never Smokeless Tobacco: Never Alcohol Use Standard Drinks/Week Comments No 0 (1 standard drink = 0.6 oz pur e alcohol) Depression Answer Date Recorded Feeling Down, Depressed, or Hopeless 2 02/10/2020 PHQ-9 Total Score 17 02/10/2020 [place] Scale Score: Not on file 0 Comments [...] suspected to have Coronavirus/COVID-19? No / Unsure 07/25/2021 11:23 AM EDT documented as of this encounter Plan of Treatment Not on file documented as of this encounter Visit Diagnoses Not on filedocumented in this encounter Care Teams Clerk Television Production Relationship Specialty Start Date End Date Patricia Recinos MD [address] [place] [address] [address] [place] [phone] PCP - General Family Medicine 11/12/17 documented as of this encounter
--- OUTSIDE RECORDS SUMMARY | 2025-01-28 16:43 | XMS_ITS | Patient Health Record ---
Author Organization [facility] Address [address] [place] [address] Care Team Providers Care Product Support Consultant Name Role Phone Patricia Recinos Primary Care Provider Da Romero MD,MPH, Vinicio Dale Allergies No Known Allergies Reason For Referral No Information Medications Medication SIG (Take, Route, Frequency, Duration) Notes Start Date End Date Status Cyclobenzaprine HCl 10 mg take 1 /2 to 1 tab every 8 hours Active Estradiol 0.5 MG 1 tablet Orally Once a day Active Vitamin D3 1 capsule daily Act lola Loprox 1% shampoo nightly Active Lunesta 2 MG 1 tablet immediately before bedtime Orally Once a day Active Nizoral 1 % 1 application Externally prn Active Levonorgestrel-Ethinyl Estrad 0.1-20 MG-MCG 1 tablet Orally Once a day Active Restasis 0.05 % 1 drop into affected eye Ophthalmic Twice a day Active Abilify 5 MG 1 tablet Orally Once a day Active buPROPion HCl ER (SR) 150 MG 1 tablet in the morning Orally Once a day Active Multiple Vitamin - 1 tablet Orally Once a day Active Mupirocin 2 % 1 application Externally Twice a day Active Problems Problem Type SNOMED Code ICD Code Onset Dates Problem Status W/U Status Risk Notes Problem Xerostomia (61447874) Xerostomia (K11.7) Active confirmed Problem Dysphagia (28900356) Dysphagia, unspecified type (R13.10) Active confirmed Problem Hearing loss (05406861) Hearing loss of left ear, unspecified hearing loss type (H91.92) Active confirmed 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 [address] [place] [id number] Amber Castellanos Self - patient is the insured [facility] [address] [place] [address] [id number] Amber Castellanos Self - patient is the insured Medical (General) History Medical History History ICD Code Hypothyroidism squamous cell carcinoma fibromyalgia anxiety depression Surgical History Surgery Date(Month/Year) Mohs 11/02/2023
--- OUTSIDE RECORDS SUMMARY | 2025-01-28 16:43 | XMS_ITS | Encounter Summary ---
Author Organization [facility] (historical information prior to 01/03/2025 only) Address [address] [place] [address] Care Team Providers Care Cable Coverer Name Role Phone Patricia Recinos MD Primary Care Provider [phone] Encounter Details Date Type Department Care Team (Late st Contact Info) Description 01/31/2024 Telephone [facility] [address] [place] [address] Anabel Segura PA [address] [place] [address] Social History Tobacco Use Types Packs/Day Years Used Date Smoking Tobacco: Never Smokeless Tobacco: Never Alcohol Use Standard Drinks/Week Comments No 0 (1 standard drink = 0.6 oz pur e alcohol) Depression Answer Date Recorded Feeling Down, Depressed, or Hopeless 2 02/10/2020 PHQ-9 Total Score 17 02/10/2020 [place] Scale Score: Not on file 0 Comments [...] * Telephone Encounter - Caryn Weston - 01/31/2024 3:40 PM EDT Pt just called to personally THANK YOU for all the hard work put into her care yesterday. documented in this encounter Plan of Treatment Not on file documented as of this encounter Visit Diagnoses Not on filedocumented in this encounter Care Teams Cable Coverer Relationship Specialty Start Date End Date Patricia Recinos MD [address] [place] [address], [address] [place] [address] PCP - General Family Medicine 11/12/17 documented as of this encounter
--- OUTSIDE RECORDS SUMMARY | 2025-01-28 16:43 | XMS_ITS | Encounter Summary ---
Author Organization [facility] Address [address] [place] [address] Care Team Providers Care Mental Health Orderly Name Role Phone Ross Fernandez MD Primary Care Provider [phone] Alireza Daniel MD Unavailable [phone] Dayna John NP Primary Care Provider [phone] Karen Gonzalez MD Unavailable Rajeev Stevens MD Unavailable [phone] Nichelle Parks MD Unavailable [phone] Patricia Recinos MD Primary Care Provider [phone] Unknown, Provider Primary Care Provider Unava ilable Encounter Details Date Type Department Care Team (Late st Contact Info) Description 10/25/2017 Pre Visit Planning [facility] Department of Endocrinology [facility] Endocrinology 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; 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 Not on file Not on file documented as of this encounter Plan of Treatment Upcoming Encounters Date Type Department Care Team (Late st Contact Info) Description 02/02/2025 2:15 PM EST Office Visit [facility] Orthopedics [facility] [address] [place] [address] Anton Treviño MD [address] [place] [phone] (Work) In Person with Physician documented as of this encounter Visit Diagnoses Not on filedocumented in this encounter Care Teams Mental Health Orderly Relationship Specialty Start Date End Date Ross Fernandez MD [address] [place] [address] PCP - General Internal Medicine 10/29/17 11/11/17 Dayna John NP [address] [place] [address] PCP - General Family Practice 10/15/18 12/18/24 Patricia Recinos MD [address] [address] PCP - General Family Practice 11/12/17 10/14/18 Unknown, Provider, [address] [place] [address] PCP - General 12/19/24 Alireza Daniel MD [address] [place] [address] Internal Medicine 03/28/12 [place] [address] [place] [address] Family Practice 09/01/23 Rajeev Stevens MD [address] [address] Family Practice 07/04/17 Nichelle Parks MD [address] [address] Family Practice 09/01/23 documented as of this encounter
--- OUTSIDE RECORDS SUMMARY | 2025-01-28 16:43 | XMS_ITS | Encounter Summary ---
Author Organization [facility] (historical information prior to 01/03/2025 only) Address [address] [place] [address] Care Team Providers Care Motor Vehicle Technician Name Role Phone Patricia Recinos MD Primary Care Provider [phone] Encounter Details Date Type Department Care Team (Late st Contact Info) Description 12/22/2008 Scan Document - View in Chart Hollis Gannon MD [address] [place] [address] [phone] Hollis Gannon MD [address] [place] [address] Social History Tobacco Use Types Packs/Day Years [...] on filedocumented in this encounter Care Teams Motor Vehicle Technician Relationship Specialty Start Date End Date Patricia Recinos MD [address] [place] [address], [facility] [address] [place] [address] PCP - General Family Medicine 11/12/17 documented as of this encounter
--- OUTSIDE RECORDS SUMMARY | 2025-01-28 16:43 | XMS_ITS | Encounter Summary ---
Author Organization [facility] (historical information prior to 01/03/2025 only) Address [address] [place] [address] Care Team Providers Care Reproduction Technician Name Role Phone Patricia Recinos MD Primary Care Provider [phone] Encounter Details Date Type Department Care Team (Late st Contact Info) Description 06/16/2008 Scan Document - View in Chart Hollis Gannon MD [address] [place] [address] [phone] Hollis Gannon MD [address] [place] [address] Social History Tobacco Use Types Packs/Day Years [...] on filedocumented in this encounter Care Teams Reproduction Technician Relationship Specialty Start Date End Date Patricia Recinos MD [address] [place] [address], [facility] [address] [place] [address] PCP - General Family Medicine 11/12/17 documented as of this encounter
--- OUTSIDE RECORDS SUMMARY | 2025-01-28 16:43 | XMS_ITS | Encounter Summary ---
Author Organization [facility] (historical information prior to 01/03/2025 only) Address [address] [place] [address] Care Team Providers Care Digital Marketing Assistant Name Role Phone Patricia Recinos MD Primary Care Provider [phone] Reason for Visit * Reason Comments Med Refill Encounter Details Date Type Department Care Team ([facility] st Contact Info) Description 08/11/2021 Refill [facility] [address] [place] [address], [address] [place] [address] Caryn Oliveira PA [address] [place] [address], [address] [place] [address] Social History Tobacco Use Types Packs/Day Years Used Date Smoking Tobacco: Never Smokeless Tobacco: Never Alcohol Use Standard Drinks/Week Comments No 0 (1 standard drink = 0.6 oz pur e alcohol) Depression Answer Date Recorded Feeling Down, Depressed, or Hopeless 2 02/10/2020 PHQ-9 Total Score 17 02/10/2020 [facility] Scale Score: Not on file 0 Comments [...] on filedocumented in this encounter Care Teams Digital Marketing Assistant Relationship Specialty Start Date End Date Patricia Recinos MD [address] [place] [address] [address] [place] [address] PCP - General Family Medicine 11/12/17 documented as of this encounter
--- OUTSIDE RECORDS SUMMARY | 2025-01-28 16:43 | XMS_ITS | Encounter Summary ---
Author Organization [facility] (historical information prior to 01/03/2025 only) Address [address] [place] [address] Care Team Providers Care Irrigation Service Technician Name Role Phone Patricia Recinos MD Primary Care Provider [phone] Encounter Details Date Type Department Care Team (Late st Contact Info) Description 07/06/2008 Scan Document - View in Chart Hollis Gannon MD [address] [place] [address] [phone] Hollis Gannon MD [address] [place] [address] Social History Tobacco Use Types Packs/Day Years [...] on filedocumented in this encounter Care Teams Irrigation Service Technician Relationship Specialty Start Date End Date Patricia Recinos MD [address] [place] [address], [facility] [address] [place] [address] PCP - General Family Medicine 11/12/17 documented as of this encounter
--- OUTSIDE RECORDS SUMMARY | 2025-01-28 16:43 | XMS_ITS | Patient Health Record ---
Author Organization [facility] Address [address] [facility] [address] [place] [address] Care Team Providers Care Plant Physiology Teacher Name Role Phone Patricia Recinos Primary Care Provider Da Jeronimo MD MSc, Shanti Unavailable [phone] Dacia Kevin Unavailable [phone] Allergies No Known Allergies Reason For Referral No Information Medications Medication SIG (Take, Route, Frequency, Duration) Notes Start Date End Date Status Ha[place] Thyroid 90 MG 1 tablet on an empt y stomach Orally Once a day Active Lessina 0.1-20 MG-MCG 1 tablet Orally On ce a day Not-Taking Cyclobenzaprine HCl 10 MG 1 tablet at be dtime as needed Orally Once a day Active Nortriptyline HCl 25 MG 1 capsule at bed time Orally Once a day Not-Taking Cholecalciferol 25 MCG (1000 UT) 1 capsule Orally Once a day Active Abilify 5 MG 1 tablet Orally Once a day Not-Taking Wellbutrin SR 150 MG 1 tablet in the morning Orally Once a day Active Tretinoin 0.1 % 1 application in the evening to face Externally Once a day Active Benzonatate 100 MG 1 capsule as needed Orally Three times a day Not-Taking Estradiol 0.5 MG 1 tablet Orally Once a day Active Flovent HFA Not-Taki ng Progesterone 200 MG as directed Vaginal Active Albuterol Sulfate 108 (90 Base) MCG/ACT 1 puff as needed Inhalation every 4 hrs Not-Takin g Lunesta 2 MG 1 tablet immediately before bedtime Orally Once a day Active Multivitamin - 1 tablet Orally Once a day Not-Taking Fluticasone Propionate 93 MCG/ACT 2 sprays (1 spray in each nostril) Nasally Twice a day Not-Taking Social History AUDIT-C (Standard) Question Answer Notes Did you have a drink containing alcohol in the p ast year? No Points 0 Interpretation Negative OPIOID Risk Tool (2018 Edition) Question Answer Notes Family Hx Alcohol? No Family Hx Illegal Drugs? No Family Hx Rx Drugs? No Personal Hx Alcohol? No Personal Hx Illegal Drugs? No Personal Hx Rx Drugs? No Age between 16-45 years? No History of Preadolescent Sexual Abuse? No ADD, OCD, Bipolar, Schizophrenia? No Depression? No TOTAL SCORE 0 Risk Level for Opioid Use low Problems Problem Type SNOMED Code ICD Code Onset Dates Problem Status W/U Status Risk Notes Problem Lumbar spondylosis (512330866) Lumbar spondylosis (M47.816) Active confirmed Problem Lumbar radiculopathy (724190336) Lumbar radiculopathy (M54.16) Active confirmed Vital Signs Blood pressure diastolic 90 mm Hg 11/18/2024 Height 5'5 in 11/18/2024 Blood pressure systolic 143 mm Hg 11/18/2024 Weight 125 lbs 11/18/2024 BMI 20.8 11/18/2024 Encounters Encounter Location Date Provider [facility] [address] [facility] [address] [place] [address] 11/18/2024 Dacia Kevin Lumbar radiculopathy M54.16 and Lumbar spondylosis M47.816 [facility] [address] [facility] [address] [place] [address] 11/04/2024 Shanti Jeronimo [facility] [address] [facility] [address] [place] [address] 11/18/2024 Shanti Jeronimo Assessments Encounter Date Diagnosis (ICD Code) Assessment Notes Treatment Notes Treatment Clinical Notes Section Notes 11/18/2024 Lumbar radiculopathy (ICD-10 - M54.16) Amber is a 54 y/o female with PMH of neuropathy who presents with cc of bilateral buttock pain that radiates to the medial and anterior bilateral thighs, entire lower leg, into the bilateral tops of her feet into her big toes. C/o numbness to bilateral groin, tingling, urinary urgency. Her pain presents in a L3L4 dermatomal pattern. On exam, ++ facet loading bilaterally. Amber has difficulty distinguishing her different pains throughout the exam, as she was c/o knee and hip pain as well. She has seen numerous orthopedist and pain providers. She has trialed Duloxetine, Gabapentin and Pregabalin all with no relief in pain. Discussed with Amber if she has any incontinence she needs to go directly to the ER Plan:-Obtain notes from [facility], Dr. Ulysses Boswell at [facility], Dr. Kaufman and [facility] for her EMG. She has signed a release of records at today's visit.-Recommend seeing a psychologist for CBT. - Recommend applying heat or ice to the affected area, on for 20 min then off for 20 min. Do not apply directly to skin and do not apply over topical creams or patches. - Recommend Tylenol 325-500mg tab OTC, take 1-2 tab up to 3 times daily PRN. Do not exceed 3000mg daily. Do not take with alcohol. -D/w Amber that I would like to review all of her notes and results before making a plan. She understands.-Cont inue PT. Recommend pool PT office visit: Patient seen in [place] office today. The pt presents today for evaluation and management. The pt was seen and evaluated by Dacia GERMAIN in [place] office. Pt consents to treatment at this office. 11/18/2024 Lumbar spondylosis (ICD-10 - M47.816) office visit: Patient seen in [place] office today. The pt presents today for evaluation and management. The pt was seen and evaluated by Dacia GERMAIN in [place] office. Pt consents to treatment at this office. Plan Of Treatment No Information Insurance Providers Payer Name Payer Address Payer Phone Subscriber Number Group Number Insured Name Patient Relationship to Insured Coverage Start Date Coverage End Date MEDICARE NGS [address] [place]el EMILIANO KARUNA [phone] [id number] Amber Castellanos Self - patient is the insured Medical (General) History Medical History History ICD Code TMJ Parathesia Neuropathy Squamous Cell Carcinoma Insomnia Hypothyroidism Common peroneural nerve entrapment LT knee osteoarthritis Bulging disc Surgical History Surgery Date(Month/Year) MOHS 2023 Hospitalization History Reason Date(Month/Year) Neuropathy 02/23
--- OUTSIDE RECORDS SUMMARY | 2025-01-28 16:43 | XMS_ITS | Encounter Summary ---
Author Organization [facility] (historical information prior to 01/03/2025 only) Address [address] [place] [address] Care Team Providers Care Blue Split Trimmer Name Role Phone Patricia Recinos MD Primary Care Provider [phone] Reason for Visit * Reason Onset Date Comments Med Refill 03/24/2021 Encounter Details Date Type Department Care Team ([facility] st Contact Info) Description 03/24/2021 Refill [facility] [address] [place] [address], [address] [place] [address] Caryn Oliveira PA [address] [place] [address], [address] [place] [address] Social History Tobacco Use Types Packs/Day Years Used Date Smoking Tobacco: Never Smokeless Tobacco: Never Alcohol Use Standard Drinks/Week Comments No 0 (1 standard drink = 0.6 oz pur e alcohol) Depression Answer Date Recorded Feeling Down, Depressed, or Hopeless 2 02/10/2020 PHQ-9 Total Score 17 02/10/2020 [place] Scale Score: Not on file 0 Comments [...] on filedocumented in this encounter Care Teams Blue Split Trimmer Relationship Specialty Start Date End Date Patricia Recinos MD [address] [place] [address], [facility] [address] [place] [address] PCP - General Family Medicine 11/12/17 documented as of this encounter
--- OUTSIDE RECORDS SUMMARY | 2025-01-28 16:43 | XMS_ITS | Encounter Summary ---
Author Organization [facility] (historical information prior to 01/03/2025 only) Address [address] [place] [address] Care Team Providers Care Skin Washer Name Role Phone Patricia Recinos MD Primary Care Provider [phone] Reason for Visit * Reason Onset Date Comments Med Refill 03/01/2021 Encounter Details Date Type Department Care Team ([facility] st Contact Info) Description 03/01/2021 Refill [facility] [address] [place] [address], [address] [place] [address] Caryn Oliveira PA [address] [place] [address], [address] [place] [address] Social History Tobacco Use Types Packs/Day Years Used Date Smoking Tobacco: Never Smokeless Tobacco: Never Alcohol Use Standard Drinks/Week Comments No 0 (1 standard drink = 0.6 oz pur e alcohol) Depression Answer Date Recorded Feeling Down, Depressed, or Hopeless 2 02/10/2020 PHQ-9 Total Score 17 02/10/2020 [place] Scale Score: Not on file 0 Comments [...] on filedocumented in this encounter Care Teams Skin Washer Relationship Specialty Start Date End Date Patricia Recinos MD [address] [place] [address], [facility] [address] [place] [address] PCP - General Family Medicine 11/12/17 documented as of this encounter
--- OUTSIDE RECORDS SUMMARY | 2025-01-28 16:43 | XMS_ITS | Encounter Summary ---
Author Organization [facility] Address [address] [place] [address] Care Team Providers Care Inker And Opaquer Name Role Phone Ross Fernandez MD Primary Care Provider [phone] Ross Fernandez MD Primary Care Provider [phone] Jayesh Lopez MD Primary Care Provider [phone] Ross Fernandez MD Unavailable [phone] Ross Fernandez MD Unavailable [phone] Neda Coley MD Unavailable [phone] Ross Fernandez MD Primary Care Provider [phone] Alireza Daniel MD Unavailable [phone] Dayna John NP Primary Care Provider [phone] Karen Gonzalez MD Unavailable Rajeev Stevens MD Unavailable [phone] Nichelle Parks MD Unavailable [phone] Patricia Recinos MD Primary Care Provider [phone] Unknown, Provider Primary Care Provider Unava ilable Encounter Details Date Type Department Care Team (Late st Contact Info) Description 02/23/2014 Clinical Conversion Encounter [address] [address] Patricia Saba NP [address] [place] [address] Social History Tobacco Use Types Packs/Day Years Used Date Smoking Tobacco: Never Comments Unknown Sex and Gender Information Value Date Recorded Sex Assigned at Not on file Legal Sex Female 6:23 AM EST Gender Identity Not on file Sexual Orientation Not on file documented as of this encounter Miscellaneous Notes * Letter - Patricia Saba NP - 11/23/2014 2:42 PM EDT Appointment status changed to No Show by } documented in this encounter Plan of Treatment Upcoming Encounters Date Type Department Care Team (Late st Contact Info) Description 02/02/2025 2:15 PM EST Office Visit [facility] Orthopedics [facility] [address] [place] [address], [address] [place] [address] Anton Treviño MD [address] [place] [phone] (Work) In Person with Physician documented as of this encounter Visit Diagnoses Not on filedocumented in this encounter Care Teams Inker And Opaquer Relationship Specialty Start Date End Date Ross Fernandez MD [address] [place] [address] PCP - General 02/17/14 10/01/14 Ross Fernandez MD [address] [place] [address] PCP - General 10/02/14 04/25/17 Jayesh Lopez MD [address] [address] PCP - General 04/26/17 07/09/17 Ross Fernandez MD [address] [place] [address] PCP - General Internal Medicine 10/29/17 11/11/17 Dayna John FLEET COORDINATOR [address] [place] [address] PCP - General Family Practice 10/15/18 12/18/24 Patricia Recinos MD [address] [address] PCP - General Family Practice 11/12/17 10/14/18 Unknown, Provider, [address] [place] [address] PCP - General 12/19/24 Ross Fernandez MD [address] [place] [address] 04/26/17 07/09/17 Ross Fernandez MD [address] [place] [address] 10/02/14 07/09/17 Neda Coley MD [address] [facility] [place] [address] 02/17/14 07/09/17 Alireza Daniel MD [address] [facility] [place] [address] Internal Medicine 03/28/12 Karen Gonzalez MD [address] [address] Family Practice 09/01/23 Rajeev Stevens MD [address] [address] Family Practice 07/04/17 Nichelle Parks MD [address] [address] Family Practice 09/01/23 documented as of this encounter
--- OUTSIDE RECORDS SUMMARY | 2025-01-28 16:43 | XMS_ITS | Encounter Summary ---
Author Organization [facility] (historical information prior to 01/03/2025 only) Address [address] [place] [address] Care Team Providers Care Buggy Loader Name Role Phone Patricia Recinos MD Primary Care Provider [phone] Reason for Visit * Reason Comments Med Refill Encounter Details Date Type Department Care Team ([facility] st Contact Info) Description 03/27/2021 Refill [facility] [address] [place] [address] Caryn Oliveira PA [address] [place] [address], [address] [place] [address] Social History Tobacco Use Types Packs/Day Years Used Date Smoking Tobacco: Never Smokeless Tobacco: Never Alcohol Use Standard Drinks/Week Comments No 0 (1 standard drink = 0.6 oz pur e alcohol) Depression Answer Date Recorded Feeling Down, Depressed, or Hopeless 2 02/10/2020 PHQ-9 Total Score 17 02/10/2020 [place] Scale Score: Not on file 0 Comments [...] on filedocumented in this encounter Care Teams Buggy Loader Relationship Specialty Start Date End Date Patricia Recinos MD [address] [place] [address] [place] [address] PCP - General Family Medicine 11/12/17 documented as of this encounter
--- OUTSIDE RECORDS SUMMARY | 2025-01-28 16:43 | XMS_ITS | Encounter Summary ---
Author Organization [facility] (historical information prior to 01/03/2025 only) Address [address] [place] [address] Care Team Providers Care Head Machine Feeder Name Role Phone Patricia Recinos MD Primary Care Provider [phone] Encounter Details Date Type Department Care Team (Late st Contact Info) Description 02/05/2024 Telephone [facility] [address] [place] [address] Anabel Segura PA [address] [place] [address] Social History Tobacco Use Types Packs/Day Years Used Date Smoking Tobacco: Never Smokeless Tobacco: Never Alcohol Use Standard Drinks/Week Comments No 0 (1 standard drink = 0.6 oz pur e alcohol) Depression Answer Date Recorded Feeling Down, Depressed, or Hopeless 2 02/10/2020 PHQ-9 Total Score 17 02/10/2020 [place] Scale Score: Not on file 0 Comments [...] * Telephone Encounter - Caryn Weston - 02/05/2024 9:43 AM EST Pt is requesting an ankle brachial index test as well as doppler ultrasound for arms, legs and feetdue to circulation issues. Pt was recently seen in office on January 29. documented in this encounter Plan of Treatment Not on file documented as of this encounter Visit Diagnoses Not on filedocumented in this encounter Care Teams Head Machine Feeder Relationship Specialty Start Date End Date Patricia Recinos MD [address] [place] [address], [facility] [address] [place] [address] PCP - General Family Medicine 11/12/17 documented as of this encounter
--- OUTSIDE RECORDS SUMMARY | 2025-01-28 16:43 | XMS_ITS | Encounter Summary ---
Author Organization [facility] (historical information prior to 01/03/2025 only) Address [address] [place] [address] Care Team Providers Care Bisque Tile Burner Name Role Phone Patricia Recinos MD Primary Care Provider [phone] Reason for Visit * Reason Comments Med Refill Encounter Details Date Type Department Care Team (Late st Contact Info) Description 01/22/2024 Refill [facility] [address] [place] [address] Cleopatra Israel PA [address] [place] [address] Social History Tobacco Use Types Packs/Day Years Used Date Smoking Tobacco: Never Smokeless Tobacco: Never Alcohol Use Standard Drinks/Week Comments No 0 (1 standard drink = 0.6 oz pur e alcohol) Depression Answer Date Recorded Feeling Down, Depressed, or Hopeless 2 02/10/2020 PHQ-9 Total Score 17 02/10/2020 [place] Scale Score: Not on file 0 Comments [...] on filedocumented in this encounter Care Teams Bisque Tile Burner Relationship Specialty Start Date End Date Patricia Recinos MD [address] [place] [address] PCP - General Family Medicine 11/12/17 documented as of this encounter
--- OUTSIDE RECORDS SUMMARY | 2025-01-28 16:43 | XMS_ITS | Encounter Summary ---
Author Organization [facility] (historical information prior to 01/03/2025 only) Address [address] [place] [address] Care Team Providers Care Computer Installation Engineer Name Role Phone Patricia Recinos MD Primary Care Provider [phone] Encounter Details Date Type Department Care Team (Late st Contact Info) Description 05/03/2009 Scan Document - View in Chart Hollis Gannon MD [address] [place] [address] [id number] Hollis Gannon MD [address] [place] [address] Social History Tobacco Use Types Packs/Day Years [...] on filedocumented in this encounter Care Teams Computer Installation Engineer Relationship Specialty Start Date End Date Patricia Recinos MD [address] [place] [address], [facility] [address] [place] [address] PCP - General Family Medicine 11/12/17 documented as of this encounter
--- OUTSIDE RECORDS SUMMARY | 2025-01-28 16:43 | XMS_ITS | Encounter Summary ---
Author Organization [facility] (historical information prior to 01/03/2025 only) Address [address] [place] [address] Care Team Providers Care Keeper Helper Name Role Phone Patricia Recinos MD Primary Care Provider [phone] Reason for Visit * Reason Onset Date Comments Med Refill 09/17/2020 Encounter Details Date Type Department Care Team ([facility] st Contact Info) Description 09/17/2020 Refill [facility] [address] [place] [address], [address] [place] [address] Caryn Oliveira PA [address] [place] [address], [address] [place] [address] Social History Tobacco Use Types Packs/Day Years Used Date Smoking Tobacco: Never Smokeless Tobacco: Never Alcohol Use Standard Drinks/Week Comments No 0 (1 standard drink = 0.6 oz pur e alcohol) Depression Answer Date Recorded Feeling Down, Depressed, or Hopeless 2 02/10/2020 PHQ-9 Total Score 17 02/10/2020 [place] Scale Score: Not on file 0 Comments [...] on filedocumented in this encounter Care Teams Keeper Helper Relationship Specialty Start Date End Date Patricia Recinos MD [address] [place] [address], [facility] [address] [place] [address] PCP - General Family Medicine 11/12/17 documented as of this encounter
--- OUTSIDE RECORDS SUMMARY | 2025-01-28 16:43 | XMS_ITS | Clinical Summary ---
Author Organization [facility] (historical information prior to 01/03/2025 only) Address [address] [place] [address] Care Team Providers Care Multifocal Button Inspector Name Role Phone Patricia Recinos MD Primary Care Provider [phone] Allergies No known active allergies Medications progesterone 200 mg daily. Act lola estradiol (VIVELLE-DOT) 0.05 mg/24 hr APPLY ONE PATCH EXTERNALLY TO CLEAN DRY SKIN TWO TIMES WEEKLY 8 Active thyroid, pork, (Haywood Thyroid) 90 mg tablet Take 90 mg by mouth daily. 30 tablet 3 4 Active Haywood Thyroid 60 mg tablet TAKE 1 TABLET(60 MG) BY MOUTH DAILY 90 tablet 4 Active Additional Information Patient not taking.Reported on 02/06/2024 triamcinolone (KENALOG) 0.1 % cream Apply topically 2 (two) times a day. 30 g 2 4 Active predniSONE (DELTASONE) 10 mg tablet Take 2 tablets for 4 days, take 1 tablet for 4 days, take half a tablet for 4 days 14 tablet 5 4 Active Additional Information Patient not taking.Reported on 02/06/2024 dexlansoprazole (DEXILANT) 60 mg capsule Take 1 capsule (60 mg total) by mouth daily. 30 capsule 11 4 01/29/20 25 Active Additional Information Patient not taking.Reported on 02/06/2024 Restasis 0.05 % ophthalmic emulsion INSTILL 1 DROP INTO BOTH EYES TWICE A DAY DIRECTED Active nortriptyline (PAMELOR) 25 mg capsule TAKE ONE CAPSULE BY MOUTH EVERY NIGHT 90 capsule 2 4 Active cloNIDine HCl, bulk, powder Apply 1 Application topically 2 (two) times a day as needed (pain). Clonidine 0.1% Cream 25 g 1 5 Active famotidine (Pepcid) 20 mg tablet Take 1 tablet (20 mg total) by mouth 2 (two) times a day. 60 tablet 11 5 04/07/19 26 Active naltrexone (DEPADE) 50 mg tablet Take 04/05 tab 15 tablet 11 5 Active eszopiclone (LUNESTA) 2 mg tabletIndicatio ns:Sleep disorder Take 1 tablet (2 mg total) by mouth nightly. Take immediately before bedtime 30 tablet 5 Active tretinoin (RETIN-A) 0.1 % cream APPLY TOPICALLY TO THE AFFECTED AREA 1 TIME AT NIGHT 45 g 3 5 Active buPROPion XL (WELLBUTRIN XL) 300 mg 24 hr tablet TAKE 1 TABLET(300MG TOTAL) BY MOUTH DAILY 90 tablet 1 5 Active cyclobenzaprine (FLEXERIL) 10 mg tablet TAKE 1 TABLET BY MOUTH TWICE A DAY NEEDED FOR MUSCLE SPASMS 30 tablet 5 Active ARIPiprazole (ABILIFY) 5 mg tablet Take 1 tablet (5 mg total) by mouth daily. 90 tablet 5 Active cyclobenzaprine (FLEXERIL) 10 mg tablet Take 1 tablet (10 mg total) by mouth 2 (two) times a day as needed for muscle spasms. 30 tablet 5 Active eszopiclone (LUNESTA) 2 mg tabletIndicatio ns:Sleep disorder Take 1 tablet (2 mg total) by mouth nightly. Take immediately before bedtime 30 tablet 5 Active celecoxib (CeleBREX) 100 mg capsuleIndicati ons:TMJ dysfunction TAKE 1 CAPSULE TWICE A DAY 60 capsule 1 5 Active mometasone (ELOCON) 0.1 % ointment Apply topically daily. 15 g 4 01/08/20 25 Additional Information Patient not taking.Reported on 02/06/2024 Hospital, Clinic, or Other Facility Administered Medication Ordered Dose Route Frequency Start Date End Date Status bar gautam(acell),tetanus (BOOSTRIX) 2.5-8-5 Lf-mcg-Lf/0.5mL vaccine 0.5 mL 0.5 mL IM Once 07/26/2023 Active Active Problems Problem Noted Date Diagnosed Date Weakness of both lower extremities 01/30/2024 Neuropathy 01/30/2024 Assessment & Plan (02/07/2024 2:16 PM EST): Periperal Emg normal Seeing neurology through [facility] and 2nd opinion at [facility]. 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 Overview (12/20/2023): [facility] Recommendation for radiation Had removal Nausea 11/27/2023 Overview (11/27/2023): Since having mohs surgery First was 11/03, second was just on Wednesday 11/22 Feeling nausea, fatigued Nausea is constant Had an infection post op Doxycycline, finished 2 weeks ago Was having vomiting and diarrhea while on doxy Still having the nausea and decreased appetite No fever or chills Taking Prilosec, not helping Tums not helping Regular BM, yesterday morning Getting brain MRI soon to make sure no mets Eating every 3 hours to prevent worsening nausea Eating a bland diet Assessment & Plan (11/27/2023 8:45 PM EDT): Initially thought due to doxycycline but with lingering nausea Does seem improved, no vomiting or diarrhea Since tolerating oral intake will hold on anti-nausea medications Continue bland small portions Recommended edward and peppermint products for nausea for now Check labs If no improvement in 2 weeks recommend in person follow up Chronic midline low back pain without sciatica 0 11/27/2023 Assessment & Plan (11/27/2023 8:53 PM EDT): Currently going to PT and seeing a chiropractor Takes flexeril as needed Basal cell carcinoma (BCC) in situ of skin 07/25 Assessment & Plan (07/26/2023 3:30 PM EDT): Derm referral Patient has appt set up Tremulousness 04/30/2020 Assessment & Plan (05/17/2021 5:12 PM EST): I offered to use dexcom sensors to identify glucose pattern and correlation with symptoms--she will have one in the next week or two. I would like to see if decreasing armour thyroid dose (supplemented with LT4) may also be helpful to reduce her symptoms-- she does not think this is the case, because she had symptoms before starting using armour thyroid. Well adult exam 02/10/2020 Assessment & Plan (07/26/2023 8:19 PM EDT): Mammogram Colonoscopy due at age 60 per pt. Needs tdap Assessment & Plan (10/09/2020 6:14 AM EDT): -she will be meeting with her business development manager soon and will get her mammogram with them, also pap screening -she is UTD on covid vaccines, went over shingles vaccine -she is also UTD on her colonoscopy -full set of labs done recently and they all looked great -she will see me back in the Fall for her cpe Greater than 50% of this visit was spent counseling Assessment & Plan (02/10/2020 5:11 PM EST): -labs johanna done -she is UTD on her tdap -went over the flu vaccine -went over shingles vaccine at 50 and colon cancer screening -she just met with her business development manager and had a breast exam and pap will follow up with mammograms with them -went over dental,skin and eye exams -went over healthy diet and exercise -neg sti screening Anxiety and depression 02/10/2020 Assessment & Plan (02/07/2024 2:29 PM EST): Not sleeping In between psych's Not eating Anxiety not well controlled. Needs psych better. Assessment & Plan (07/26/2023 8:11 PM EDT): Sees psych and therapist Doing ok overall Nothing really helps But therapy she likes Assessment & Plan (10/09/2020 6:12 AM EDT): -she has been doing well and stable on all of her current medications Assessment & Plan (02/10/2020 5:11 PM EST): -she is followed by psych and is stable on current medication regimen Atypical mole 02/06/2019 Assessment & Plan (07/26/2023 8:10 PM EDT): Left ear. Derm referral May need bx Assessment & Plan (02/06/2019 10:16 AM EST): -many moles on her back with fair skin tone will have her meet with derm numbers given Chronic joint pain 04/19/2018 Acne vulgaris 02/01/2018 Assessment & Plan (02/06/2019 10:16 AM EST): -noted along the forearms -the patient will monitor for any new changes also she will plan to use OTC cortisone if ongoing will call me Assessment & Plan (02/01/2018 5:46 PM EDT): -the patient has had a burning pain and now rash along the left thigh, she states that she was worried that it could be her shingles, again last year we were not 100% sure if this was shingles or HSV -we did check labs last year and she was pos for HSV 1 only, no hx of of this before -the patient will start valtrex since burning rash and unilateral -she also can use cortisone and and antihistamines -she will try and get in with derm Sleep disorder 11/15/2017 Overview (02/10/2022): Stable with prn lunesta Assessment & Plan (11/27/2023 8:46 PM EDT): Stable with lunesta 2mg, has been on this for many years Assessment & Plan (02/10/2022 4:29 PM EST): Stable, f/u prn Assessment & Plan (10/09/2020 6:12 AM EDT): -she is stable, continues to use prn lunesta Assessment & Plan (11/15/2017 3:54 PM EDT): -the patient had met with psych and they felt that she would be a good candidate for lunesta -her previous pcp was giving it to her -last filled in July 2017 -checked mass log -20 tabs given to use prn Excessive thirst 01/03/2017 Overview (08/23/2023): Most recent eGFR was 58. Had been taking nsaids for her shoulder - now doing PT for this and cutting out the nsaids has had improvement in eGFR after repeat. Did go back up on repeat back up to 70. Saw Nephrology - for polyuria - had been worked up with Dr Berger at [facility] in 2019. Saw another nephrology today Dr Adam Joshua - [place] - ? Some form of mild gillette hypopituitarism - is going to trial low dose desmospressin to help with symptoms more than anything. Is going to do some genetic testing. Repeat labs in 1 weeks Follow up in 6 months. Assessment & Plan (08/23/2023 4:00 PM EDT): Abstain from NSAID use. Trial of desmopressin as discussed with Dr Joshua. Follow up nephrology Assessment & Plan (07/26/2023 8:11 PM EDT): Ran tests dr. Rivera Kidney doctor Drinks a lot of water All labs abnormal and did not know why. Saw another specialist crystal grinder At [facility] over 5 years ago. Ran tests and the tests were all normal. Ruled out sarcoid. K is normal Sodium normal They did not find anything on work up Assessment & Plan (01/03/2017 6:40 PM EDT): Will have the patient have a work up for diabetes insipidus -labs to be done -possible with other endocrine changes -follow up pending Hypoglycemia 09/12/2016 Assessment & Plan (05/17/2022 6:05 PM EST): CGMS showed low readings at fasting. But [...] her symptoms are not related to hypoglycemia. Assessment & Plan (07/25/2021 12:50 PM EDT): She will benefit from a dexcom sensor use-- if she does not have significant glucose swings associated with symptoms, we can safely rule out hypoglycemia as the reason. Unfortunately her current phone is not compatible with dexcom-- she is getting a new phone today and will see if the new phone would work. A dexcom sensor sample was given to her. She will send me the clarify report to me for review. Assessment & Plan (04/30/2020 4:17 PM EST): I told her that she most likely does not have hypoglycemia given all fingerstick glucose readings have been in normal range. She questions the accuracy of the meter Plasma glucose is the most accurate measurement of blood glucose--given her frequency of symptoms, I think she can induce her symptoms at time of a typical event to rule out. Will also check cortisol and metaphrines--I told her that my suspicions for abnormalities are low. Assessment & Plan (03/18/2020 4:11 PM EST): I asked her to keep food and glucose log to try to identify frequency and trigger for hypoglycemia New supplies for glucose checking were sent Will consider CGMS and more hormone work up if hypoglycemia is recurrent (will include cortisol when glucose is low too) She should also check BP during episodes too to see if symptoms can be due to hypotension. Assessment & Plan (02/10/2020 5:10 PM EST): -she has been feeling more issues with hunger and also possible low glucose will check glucose on labs fasting and an a1c she also will try and monitor her glucose levels Assessment & Plan (09/12/2016 6:13 PM EDT): It is hard to say if her [...] to have more balanced nutrition--optimize lean protein. Chronic fatigue 09/12/2016 Assessment & Plan (02/01/2018 5:50 PM EDT): -will check other labs to ensure stability of her immune system since has been getting sick more often Assessment & Plan (09/12/2016 6:14 PM EDT): Hormone work up as above I am not sure if testosterone therapy is beneficial to her--she will gradually taper down. Hypothyroid 08/04/2016 Overview (08/23/2023): Managed by her printer maintainer. Currently taking Haywood Thyroid 90mg Recently was sick with Covid, and feels she has now gained about 10 pounds unexpectedly. And knows that it can happen that her thyroid function decreases due to illness. Would like to check levels. 08/23/23: Is getting her thyroid directly from the wire straightening machine operator 07/26/23 TSH 2.86, T4 free 0.7, T3 free 4.35, Total T3 89 Assessment & Plan (08/23/2023 3:59 PM EDT): Continue with current dosage, will see what needs to be done to get it through the wire straightening machine operator again. Assessment & Plan (07/26/2023 8:12 PM EDT): On armour thyroid. I yumiko rxn this for her since dr. Conner is leaving [facility] Assessment & Plan (12/21/2022 7:32 PM EDT): Labs ordered, f/u endo Assessment & Plan (03/29/2022 11:14 AM EST): -taking armour thyroid 90mg -doing well with this dose -follows with endo Assessment & Plan (02/10/2022 4:29 PM EST): Follow up endo Assessment & Plan (07/25/2021 12:51 PM EDT): We can also try to lower the LT3 component down the road to see if it may help her symptoms. Assessment & Plan (10/09/2020 6:11 AM EDT): -the patient's labs have been stable for her and she continues to follow up with endocrine Assessment & Plan (02/10/2020 5:07 PM EST): -labs to be done Assessment & Plan (07/05/2018 1:33 PM EDT): -the patient has been stable on her dose of armour thyroid Assessment & Plan (11/15/2017 3:45 PM EDT): -labs to be done for follow up as she has been on the iodine to see if this has been helping Assessment & Plan (01/29/2017 3:18 PM EDT): Seems to be Euthroid. Assessment & Plan (01/03/2017 6:42 PM EDT): -the patient had iodine done she will get me the result -she states that it was low -also we have been speaking with compounding pharmacist -he did recommend that we start iodine, also will have the patient get started with possible cortisol saliva test if we can get the kit Assessment & Plan (09/12/2016 6:13 PM EDT): Will lower armour to 6.5 tabs/week and repeat TFTs in 6-8 weeks. Eczema of both hands 08/04/2016 Vitamin D deficiency 08/04/2016 Overview (08/23/2023): Most recent Vitamin D 77 Assessment & Plan (02/07/2024 2:18 PM EST): Taking vit d supplement And b12 Assessment & Plan (08/23/2023 3:57 PM EDT): Continue with regular supplementation Assessment & Plan (07/26/2023 8:13 PM EDT): Recheck Assessment & Plan (07/05/2018 1:31 PM EDT): -labs to be done today for follow up -she has been taking a vitamin D supplement Iron disorder 08/04/2016 Overview (08/23/2023): Recent labs showed: CBC wnl, no anemia. 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 Continue to monitor Assessment & Plan (07/26/2023 8:13 PM EDT): Will get iron studies Ferritin and haptoferritn. 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 Assessment & Plan (10/09/2020 6:12 AM EDT): -her labs have been stable recent labs last month were all great will continue to monitor this Assessment & Plan (02/10/2020 5:10 PM EST): -labs Assessment & Plan (07/05/2018 1:33 PM EDT): Lab follow up will obtain ferritin today Assessment & Plan (11/15/2017 3:48 PM EDT): -labs to be done -also will test for hemochromatosis Assessment & Plan (08/04/2016 4:30 PM EDT): Doubt hemochromatosis Resolved Problems Problem Noted Date Diagnosed Date Resolved Date Pneumonia due to infectious organism 03/29/2022 07/26/2023 Assessment & Plan (03/29/2022 11:13 AM EST): Symptoms started end of December: cough, SOB, chest pain, fever Went to urgent care, was given inhaler, flonase and cough suppressant Medications were helpful and she started to feel better but symptoms have lingered and now gotten worse Now has productive cough, yellow mucous Denies fever, chills, n/v/d Likely pneumonia Sent z-pack, discussed continuing symptomatic treatment Will let us know if symptoms continue or worsen Tachycardia 02/06/2019 02/10/2020 Assessment & Plan (02/06/2019 10:14 AM EST): -the patient has had issues with tachycardia she had been thinking that it was more anxiety related but her kidney specialist suggested that we work this up further -at this time will plan to have the patient get a zio patch for 14 days -her lab work up including tsh as been wnl -also her EKG was NSR with a rate in the 60s -if needed might need echo and cardio referral Polyuria 11/04/2018 02/10/2020 Transient visual loss of both eyes 11/04/2018 02/10/2020 Hormonal disorder 07/05/2018 02/10/2020 Assessment & Plan (07/05/2018 1:38 PM EDT): -the patient is coming in for follow up -she states that she would like to obtain labs for hormonal checks, also the patient will need to let me known about dosing of the testosterone will need dosing and will send over to the compounding pharmacy the patient will let me know Urinary urgency 11/15/2017 07/26/2023 Assessment & Plan (02/10/2020 5:09 PM EST): -she did meet with nephrology and they do feel there is something going on with sodium loss she needs more work up and it trying to get in with someone at [facility] -CMP to be checked on labs Assessment & Plan (11/15/2017 3:48 PM EDT): -the patient has had ongoing issues with urinary urgency -she will rip to meet with urogyn, names were given -the patient will get work up through them since they were nor thinking DI at endocrine Double vision 11/15/2017 07/26/2023 Assessment & Plan (02/10/2020 5:09 PM EST): issues with night vision will be meeting with eye again soon Assessment & Plan (11/15/2017 3:50 PM EDT): -she met with opthalmology, and they said that her eye exam was normal, but it might help to see mass eye and ear since it's in both eyes to make sure no underlying cause -she will plan to do this Low serum cortisol level 09/12/2016 Assessment & Plan (07/05/2018 1:32 PM EDT): -the patient will be getting labs done for cortisol and will follow up pending labs Assessment & Plan (11/15/2017 3:46 PM EDT): -the patient did meet with endocrine and they did did not feel this was a pituitary issue and were not thinking that her polyuria was correlated with diabetes insipidus -they felt that things could be monitored Assessment & Plan (10/05/2016 8:25 AM EDT): Pt will have blood draw at 8:45 and 9:15. Pt asks about non-shwetha's adrenal issues such as adrenal fatigue. I explained that this is not a medical diagnosis and that she would need to seek functional/alternative medicine for this. She will f/u with Dr. Pimentel with additional questions. Assessment & Plan (09/12/2016 6:09 PM EDT): Her baseline cortisol level is low Will check electrolytes Will repeat at fasting with ACTH level Will likely need a cosyntropin stimulation test to rule out adrenal insufficiency. Encounters Date Type Department Care Team Description 12/25/2024 [facility] [address] [id number] Anabel Segura PA TMJ dysfunction (Primary Dx) 11/25/2024 Travel 11/17/2024 [facility] [address] [id number] Saul Bowling MD Sleep disorder 11/16/2024 [facility] [address] [address] Cleopatra Israel PA 11/16/2024 [facility] [address] [address] Saul Bowling MD 11/10/2024 [facility] [address] [address] Cleopatra Israel PA from Last 3 Months Immunizations Name Administration Dates Next Due Hep B, Unspecified 12/18/2003 TB-PPD intradermal (Tubersol) 09/08/2015 TDAP (Boostrix/Adacel) 10/17/2012 Family History Medical History Relation Comments Depression Father Psychosis Father Diabetes Maternal Grandmother Hypothyroidism Maternal Grandmother Osteoporosis Maternal Grandmother Kimbolton's disease Mother Anxiety disorder Mother Hypothyroidism Mother Osteoporosis Mother Osteoporosis Paternal Grandmother Breast cancer Neg Hx Colon cancer Neg Hx Ovarian cancer Neg Hx Relation Status Comments Father Maternal Grandmother Mother Paternal Grandmother Social History Tobacco Use Types Packs/Day Years Used Date Smoking Tobacco: Never Smokeless Tobacco: Never Tobacco Cessation:Counseling Given: Not Answered Alcohol Use Standard Drinks/Week Comments No 0 (1 standard drink = 0.6 oz pur e alcohol) Depression Answer Date Recorded Feeling Down, Depressed, or Hopeless 2 02/10/2020 PHQ-9 Total Score 17 02/10/2020 [place] Scale Score: Not on file 0 Comments [...] Sign Reading Time Taken Comments Blood Pressure 110/74 03/05/2024 12:16 PM EST Pulse 82 03/05/2024 12:16 PM EST Temperature 36.3 C (97.4 F) 03/05/2024 12:16 PM EST Respiratory Rate 12 01/29/2017 3:26 PM EDT Oxygen Saturation 95% 03/05/2024 12:16 PM EST Inhaled Oxygen Concentration - - Weight 51.7 kg (114 lb) 03/05/2024 12:16 PM EST Height 165.1 cm (5' 5 ) 02/10/2022 3:03 PM EST Body Mass Index 18.97 02/10/2022 3:03 PM EST Plan of Treatment Health Maintenance Due Date Last Done Comments Pneumococcal Vaccine: Pediat rics (0 to 5 Years) and At-Risk Patients (6 to 64 Years) (1 of 2 - PCV) 1976 Periodic Health Exam 1988 Shingrix (Zoster Recombinant ) Vaccine (1 of 2) 1989 Breast Cancer Screening 2010 Tetanus Diphtheria and Pertu ssis Vaccines (TD and TDaP) (2 - Td or Tdap) 10/17/2022 10/17/2012 Influenza (Seasonal) 10/31/2024 CoVid-19 Vaccine (2 - 2024-2 6 season) 2024 08/31/2021 Colon Cancer Screening 2025 06/22/2015 PAP Screening 12/01/2025 12/01/2020 Hepatitis C Screening Completed 09/27/2020 HIB Vaccines Aged Out No longer eligi ble based on patient's age to complete this topic HPV Vaccines Aged Out No longer eligi ble based on patient's age to complete this topic Meningococcal Vaccine Aged Out No vinod kalyan eligible based on patient's age to complete this topic Insurance MEDICARE A&B MEDICARE A&B [facility] STANDARD MEDICARE A&B Member Subscriber Plan / Payer (Ef fective 2011-Present) Name:ShakeelPoojaPeoplesKathleenAmber Member ID:[id number] Relation to Subscriber:Self Name:Jasmin Amber Subscriber ID:[id number] Payer ID:Not on file Group ID:Not on file Type:Medicare Address: [address] STANDARD MEDICARE A&B Member Subscriber Plan / Payer (Ef fective 2011-Present) Name:Amber Castellanos Member ID:[id number] Relation to Subscriber:Self Name:Jasmin Amber Subscriber ID:[id number] Payer ID:Not on file Group ID:Not on file Type:Medicare Address: [address] STANDARD MEDICARE A&B [facility] Advance Directives Documents on File Type Date Recorded Patient Physician Internist Expl anation [facility] Care Proxy 03/05/2024 1:48 PM [facility] Medical Orders for Life-Sustaning Treatment 03/05/2024 1:45 PM [facility] Care Teams Multifocal Button Inspector Relationship Specialty Start Date End Date Patricia Recinos MD [address] [place] [address], [address] [place] [address] PCP - General Family Medicine 11/12/17
--- OUTSIDE RECORDS SUMMARY | 2025-01-28 16:43 | XMS_ITS | Encounter Summary ---
Author Organization [facility] (historical information prior to 01/03/2025 only) Address [address] [place] [address] Care Team Providers Care Assistant Broker Name Role Phone Patricia Recinos MD Primary Care Provider [phone] Encounter Details Date Type Department Care Team (Late st Contact Info) Description 08/29/2024 Telephone [facility] [address] [place] [phone] Patricia Recinos MD [address] [place] [id number] Social History Tobacco Use Types Packs/Day Years Used Date Smoking Tobacco: Never Smokeless Tobacco: Never Alcohol Use Standard Drinks/Week Comments No 0 (1 standard drink = 0.6 oz pur e alcohol) Depression Answer Date Recorded Feeling Down, Depressed, or Hopeless 2 02/10/2020 PHQ-9 Total Score 17 02/10/2020 [place] Scale Score: Not on file 0 Comments [...] on filedocumented in this encounter Care Teams Assistant Broker Relationship Specialty Start Date End Date Patricia Recinos MD [address] [place] [phone] PCP - General Family Medicine 11/12/17 documented as of this encounter
--- OUTSIDE RECORDS SUMMARY | 2025-01-28 16:43 | XMS_ITS | Encounter Summary ---
Author Organization [facility] (historical information prior to 01/03/2025 only) Address [address] [place] [address] Care Team Providers Care Telephone Sales Representative Name Role Phone Patricia Recinos MD Primary Care Provider [phone] Encounter Details Date Type Department Care Team (Late st Contact Info) Description 02/04/2024 Telephone [facility] [address] [place] [address] Anabel Segura PA [address] [place] [address] Social History Tobacco Use Types Packs/Day Years Used Date Smoking Tobacco: Never Smokeless Tobacco: Never Alcohol Use Standard Drinks/Week Comments No 0 (1 standard drink = 0.6 oz pur e alcohol) Depression Answer Date Recorded Feeling Down, Depressed, or Hopeless 2 02/10/2020 PHQ-9 Total Score 17 02/10/2020 [place] Scale Score: Not on file 0 Comments [...] Miscellaneous Notes * Telephone Encounter - Hetal Jarrett - 02/04/2024 3:46 PM EST Needs ambulatory referral for RHEUMATOLOGY for her sutoimmune disease, pls eneter her appt is tomorrow , thanks I will fax once done * Telephone Encounter - Caryn Weston - 02/04/2024 10:31 AM EST Pt was seen in office for a referral to Rheumatology on . However, no ambulatory order in pt's chart. Please place so that it can be faxed to [phone] with office visit note before her appointment on Sunday. documented in this encounter Plan of Treatment Not on file documented as of this encounter Visit Diagnoses Not on filedocumented in this encounter Care Teams Telephone Sales Representative Relationship Specialty Start Date End Date Patricia Recinos MD [address] [place] [address], [place] [address] PCP - General Family Medicine 11/12/17 documented as of this encounter
--- OUTSIDE RECORDS SUMMARY | 2025-01-28 16:43 | XMS_ITS | Encounter Summary ---
Author Organization [facility] (historical information prior to 01/03/2025 only) Address [address] [place] [address] Care Team Providers Care National Dedicated Truck Driver Name Role Phone Patricia Recinos MD Primary Care Provider [phone] Reason for Visit * Reason Onset Date Comments Med Refill 11/08/2021 Encounter Details Date Type Department Care Team ([facility] st Contact Info) Description 11/08/2021 Refill [facility] [address] [place] [address], [address] [place] [address] Caryn Oliveira PA [address] [place] [address], [address] [place] [address] Social History Tobacco Use Types Packs/Day Years Used Date Smoking Tobacco: Never Smokeless Tobacco: Never Alcohol Use Standard Drinks/Week Comments No 0 (1 standard drink = 0.6 oz pur e alcohol) Depression Answer Date Recorded Feeling Down, Depressed, or Hopeless 2 02/10/2020 PHQ-9 Total Score 17 02/10/2020 [place] Scale Score: Not on file 0 Comments [...] on filedocumented in this encounter Care Teams National Dedicated Truck Driver Relationship Specialty Start Date End Date Patricia Recinos MD [address] [place] [address], [facility] [address] [place] [address] PCP - General Family Medicine 11/12/17 documented as of this encounter
--- OUTSIDE RECORDS SUMMARY | 2025-01-28 16:43 | XMS_ITS | Encounter Summary ---
Author Organization [facility] (historical information prior to 01/03/2025 only) Address [address] [place] [address] Care Team Providers Care Balloon Pilot Name Role Phone Patricia Recinos MD Primary Care Provider [phone] Encounter Details Date Type Department Care Team (Late st Contact Info) Description 11/14/2021 Refill [facility] [address] [place] [address] Patricia Recinos MD [address] [place] [address] Social History Tobacco Use Types Packs/Day Years Used Date Smoking Tobacco: Never Smokeless Tobacco: Never Alcohol Use Standard Drinks/Week Comments No 0 (1 standard drink = 0.6 oz pur e alcohol) Depression Answer Date Recorded Feeling Down, Depressed, or Hopeless 2 02/10/2020 PHQ-9 Total Score 17 02/10/2020 [place] Scale Score: Not on file 0 Comments [...] Miscellaneous Notes * Telephone Encounter - Natasha Black [place] - 11/14/2021 12:00 PM EDT 90 day supply is requested documented in this encounter Plan of Treatment Not on file documented as of this encounter Visit Diagnoses Not on filedocumented in this encounter Care Teams Balloon Pilot Relationship Specialty Start Date End Date Patricia Recinos MD [address] [place] [address], [facility] [address] [place] [address] PCP - General Family Medicine 11/12/17 documented as of this encounter
--- OUTSIDE RECORDS SUMMARY | 2025-01-28 16:43 | XMS_ITS | Encounter Summary ---
Author Organization [facility] Address [address] [place] [address] Care Team Providers Care Product Development Name Role Phone Ross Fernandez MD Primary Care Provider [phone] Ross Fernandez MD Primary Care Provider [phone] Jayesh Lopez MD Primary Care Provider [phone] Ross Fernandez MD Unavailable [phone] Ross Fernandez MD Unavailable [phone] Neda Coley MD Unavailable [phone] Ross Fernandez MD Primary Care Provider [phone] Alireza Daniel MD Unavailable [phone] Dayna John NP Primary Care Provider [phone] Karen Gonzalez MD Unavailable Rajeev Stevens MD Unavailable [phone] Nichelle Parks MD Unavailable [phone] Patricia Recinos MD Primary Care Provider [phone] Unknown, Provider Primary Care Provider Unava ilable Encounter Details Date Type Department Care Team (Late st Contact Info) Description 05/06/2014 Clinical Conversion Encounter [address] [address] Kayce Garcia NP [address] [place] [address] Social History Tobacco Use Types Packs/Day Years Used Date Smoking Tobacco: Never Comments Unknown Sex and Gender Information Value Date Recorded Sex Assigned at Not on file Legal Sex Female 6:23 AM EST Gender Identity Not on file Sexual Orientation Not on file documented as of this encounter Progress Notes * Kayce Garcia NP - 11/19/2014 4:26 PM EDT Prescriptions: BUPROPION HCL ER (SR) 150 MG [id number] (BUPROPION HCL) Take one tablet PO daily. #30[Unspecified] x1 Entered by: Dacia Johnson Authorized by: Kayce Garcia NP Method used: Electronically to [id number], [place]/[facility]* (retail) [address] [place] [address] RxID: [id number] signed by Kayce Garcia NP 05/06/2014 12:13PM documented in this encounter Plan of Treatment Upcoming Encounters Date Type Department Care Team (Late st Contact Info) Description 02/02/2025 2:15 PM EST Office Visit [facility] Orthopedics [facility] [address] [place] [address], [address] [place] [address] Anton Treviño MD [address] [place] [phone] (Work) In Person with Physician documented as of this encounter Visit Diagnoses Not on filedocumented in this encounter Care Teams Product Development Relationship Specialty Start Date End Date Ross Fernandez MD [address] [place] [address] PCP - General 02/17/14 10/01/14 Ross Fernandez MD [address] [place] [address] PCP - General 10/02/14 04/25/17 Jayesh Lopez MD [address] [address] PCP - General 04/26/17 07/09/17 Ross Fernandez MD [address] [place] [address] PCP - General Internal Medicine 10/29/17 11/11/17 Dayna John [employer] [address] [place] [address] PCP - General Family Practice 10/15/18 12/18/24 Patricia Recinos MD [address] [address] PCP - General Family Practice 11/12/17 10/14/18 Michael Mattson MD [address] [place] [address] PCP - General 12/19/24 Ross Fernandez MD [address] [place] [address] 04/26/17 07/09/17 Ross Fernandez MD [address] [place] [address] 10/02/14 07/09/17 Neda Coley MD [address] [place] [id number] 02/17/14 07/09/17 Alireza Daniel MD [address] [place] [address] Internal Medicine 03/28/12 Karen Gonzalez MD [address] [place] [address] Family Practice 09/01/23 Rajeev Stevens MD [address] [place] [address] Family Practice 07/04/17 Nichelle Parks MD [address] [place] [address] Family Practice 09/01/23 documented as of this encounter
--- OUTSIDE RECORDS SUMMARY | 2025-01-28 16:43 | XMS_ITS | Encounter Summary ---
Author Organization [facility] (historical information prior to 01/03/2025 only) Address [address] [place] [address] Care Team Providers Care General Ii Farmworker Name Role Phone Patricia Recinos MD Primary Care Provider [phone] Encounter Details Date Type Department Care Team (Late st Contact Info) Description 02/03/2010 Scan Document - View in Chart Hollis Gannon MD [address] [place] [address] [phone] Hollis Gannon MD [address] [place] [address] Social History Tobacco Use Types Packs/Day Years [...] on filedocumented in this encounter Care Teams General Ii Farmworker Relationship Specialty Start Date End Date Patricia Recinos MD [address] [place] [address], [facility] [address] [place] [address] PCP - General Family Medicine 11/12/17 documented as of this encounter
--- OUTSIDE RECORDS SUMMARY | 2025-01-28 16:43 | XMS_ITS | Patient Health Record ---
Author Organization [facility] Address [address] [facility] [address] [place] [address] Care Team Providers Care Dip Dyer Name Role Phone GAY CARPENTER Primary Care Provider GIBRAN Pina Unavailable [phone] Allergies No Known Allergies Reason For Referral Reason Tarsal tunnel syndro me Diagnosis 1 Tarsal tunnel syndro me, right lower limb (G57.51) Referral Organization [facility] Referring Provider First Name GIBRAN Referring Provider Last Name DANNA Referring Provider Speciality Podiatry Referred Provider Specialty Neurology Referral Priority Routine Reason Polyneuropathy, unsp ecified Diagnosis 1 Polyneuropathy, unsp ecified (G62.9) Referral Organization [facility] Referring Provider First Name GIBRAN Referring Provider Last Name DANNA Referring Provider Speciality Podiatry Referred Provider Specialty Physical Med icine Referral Priority Routine Medications Medication SIG (Take, Route, Fr equency, Duration) Notes Start Date End Date Status [place] Thyroid Activ e Fish Oil Active Naltrexone Active Flexeril Active Social History Tobacco Use: Social History Observation Description Date Details (start date - stop date) Never Smoker NA - NA Tobacco Control (Standard) Question Answer Notes Tobacco use: Nonsmoker Section Notes: She is single does not use alcohol does not use tobacco she does not work has been unable to exercise. Alcohol use: Denies Smoking: Denies She is single does not use alcohol does not use tobacco she does not work has been unable to exercise. Alcohol use: Denies Smoking: Denies Problems Problem Type SNOMED Code ICD Code Onset Dates Problem Status W/U Status Risk Notes Problem Squamous cell carcinoma of skin (878853401) Squamous cell carcinoma of skin, unspecified (C44.92) Active confirmed Problem Tarsal tunnel syndrome (84292345) Tarsal tunnel syndrome, right lower limb (G57.51) Active confirmed Problem Tarsal tunnel syndrome (62930499) Tarsal tunnel syndrome, left lower limb (G57.52) Active confirmed Problem Polyneuropathy (74262144) Polyneuropathy, unspecified (G62.9) Active confirmed Problem Displacement of lumbar intervertebral disc without myelopathy (81314665) Other intervertebral disc displacement, lumbar region (M51.26) Active confirmed Problem Plantar fascial fibromatosis (74871182) Plantar fascial fibromatosis (M72.2) Active confirmed Encounters Encounter Location Date Provider Diagnosis [facility] [address] [address] 10/16/2024 GIBRAN KARADIMOS Plantar fascial fibromatosis M72.2 ; Tarsal tunnel syndrome, left lower limb G57.52 ; Tarsal tunnel syndrome, right lower limb G57.51 ; Polyneuropathy, unspecified G62.9 ; Other intervertebral disc displacement, lumbar region M51.26 and Squamous cell carcinoma of skin, unspecified C44.92 [facility] [address] [address] 11/11/2024 GIBRAN KARADIMOS Foot pain, right M79.671 ; Tarsal tunnel syndrome, right lower limb G57.51 and Plantar fascial fibromatosis M72.2 Assessments Encounter Date Diagnosis (ICD Code) Assessment Notes Treatment Notes Treatment Clinical Notes Section Notes 10/16/2024 Tarsal tunnel syndrome, left lower limb (ICD-10 - G57.52) 10/16/2024 Plantar fascial fibromatosis (ICD-10 - M72.2) Patient has a history of plantar fasciitis diagnosed in 2014. Symptoms have worsened despite using custom orthotics. - Continue using custom orthotics. - Consider alternative therapies such as acupuncture. 11/11/2024 Tarsal tunnel syndrome, right lower limb (ICD-10 - G57.51) Symptoms consistent with tarsal tunnel syndrome as assessed by foot and ankle specialist. Patient reports pain and numbness in the foot, with irritation from certain exercises and footwear. Orthotics and supportive shoes recommended. - Recommend supportive shoes with wider toe box and rigid structure. - Plan for steroid injection to right foot after follow-up with Dr. Lagunas. - Refer to Orthopedics (Dr. Lagunas) for foot and ankle evaluation. 11/11/2024 Foot pain, right (ICD-10 - M79.671) Persistent foot pain and numbness with difficulty performing toe and heel lifts. Symptoms have not improved despite prior EMG and specialist consultations. Patient is scheduled for repeat EMG to further evaluate nerve involvement. No evidence of diabetes or eating disorder contributing to symptoms. - Order EMG to evaluate nerve entrapment and differentiate from sciatica. - Refer to Neurology for EMG testing. 11/11/2024 Plantar fascial fibromatosis (ICD-10 - M72.2) 10/16/2024 Tarsal tunnel syndrome, right lower limb (ICD-10 - G57.51) Possible diagnosis suggested by safety representative. Symptoms include numbness and tingling in feet. - Consider referral to neurology for further evaluation. - Explore use of Faye trained ankle brace to prevent external rotation. 10/16/2024 Polyneuropathy, unspecified (ICD-10 - G62.9) Patient reports numbness and tingling in feet. Previous EMG indicated peripheral neuropathy. - Referral to public transit specialist for further evaluation. - Consider alternative therapies such as acupuncture. 10/16/2024 Other intervertebral disc displacement, lumbar region (ICD-10 - M51.26) Patient has a history of mild bulging disc in lower back. Symptoms improved with physical therapy and cortisone injections. - Continue physical therapy for strengthening. - Consider alternative therapies such as acupuncture. 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 Successfully treated in the past. - Monitor for any recurrence or new symptoms. 10/16/2024 Other Reviewed clinic al findings. Discussed treatment options recommended seeing public transit specialist at this point or possibly neurology at [facility] for further evaluation. Plan Of Treatment No Information Insurance Providers Payer Name Payer Address Payer Phone Subscriber Number Group Number Insured Name Patient Relationship to Insured Coverage Start Date Coverage End Date MEDICARE [address] [place] [id number] ROBER DOVE Self - patient is the insured 8 [facility] [address] [place] [address] [id number] JANIS DOVEIA Self - patient is the insured 8 Medical (General) History Medical History History ICD Code Plantar fasciitis Bursitis, following heavy lifting Surgical History Surgery Date(Month/Year) Mohs surgery October 01, 2023. 10/2023 Cancer surgery, within the past year
--- OUTSIDE RECORDS SUMMARY | 2025-01-28 16:43 | XMS_ITS | Encounter Summary ---
Author Organization [facility] (historical information prior to 01/03/2025 only) Address [address] [place] [address] Care Team Providers Care Engine Testing Supervisor Name Role Phone Patricia Recinos MD Primary Care Provider [phone] Encounter Details Date Type Department Care Team (Late st Contact Info) Description 01/08/2024 Billing Encounter [facility] [address], [address] [place] [address] Linda Raygoza PA [address] [place] [address], [address] [place] [address] Social History Tobacco Use Types Packs/Day Years Used Date Smoking Tobacco: Never Smokeless Tobacco: Never Alcohol Use Standard Drinks/Week Comments No 0 (1 standard drink = 0.6 oz pur e alcohol) Depression Answer Date Recorded Feeling Down, Depressed, or Hopeless 2 02/10/2020 PHQ-9 Total Score 17 02/10/2020 [place] Scale Score: Not on file 0 Comments [...] on filedocumented in this encounter Care Teams Engine Testing Supervisor Relationship Specialty Start Date End Date Patricia Recinos MD [address] [place] [address], [facility] [address] [place] [address] PCP - General Family Medicine 11/12/17 documented as of this encounter
--- OUTSIDE RECORDS SUMMARY | 2025-01-28 16:43 | XMS_ITS | Encounter Summary ---
Author Organization [facility] Address [address] [place] [address] Care Team Providers Care Operations Support Analyst Name Role Phone Ulysses Pal Primary Care Provider [phone] Reason for Visit * Reason Onset Date Comments PAC Appt Request - New 12/24/2023 Encounter Details Date Type Department Care Team (Late st Contact Info) Description 12/24/2023 Telephone [facility] [address] [place] [address] Telephone Intake, Staff PAC Appt Request - New Social History Tobacco Use Types Packs/Day Years Used Date Smoking Tobacco: Never Smokeless Tobacco: Never Alcohol Use Standard Drinks/Week Comments Never 0 (1 standard drink = 0.6 oz pur e alcohol) [facility] Utilities Answer Date Recorded In the [...] PM EDT documented as of this encounter Miscellaneous Notes * Telephone Encounter - Michelle Crocker Kaushal - 12/24/2023 9:01 AM EDT Patient calling to schedule NEW Consult in Rheumatology for Sjogren's disease - patient prefers , but, if his schedule is too far out she will take first available. Per DT, schedule within 14 days, if not avail send TE to rheum admin pool. Patient's tel: [phone]. Thank you, PAC documented in this encounter Plan of Treatment Upcoming Encounters Date Type Department Care Team (Late st Contact Info) Description 02/10/2025 10:00 AM EST Office Visit [facility] [address] [place] [address] Manager [place]: Margot Mendez MD [address] [place] [address] 04/07/2025 9:30 AM EST Office Visit [facility] [address] [place] [address] Zafar Stanley MD [address] [place] [address] 08/05/2025 1:00 PM EDT Office Visit [facility] Endocrinology [address] [place] [address] Layla Palmer MD [address] [place] [address] documented as of this encounter Visit Diagnoses Not on filedocumented in this encounter Care Teams Operations Support Analyst Relationship Specialty Start Date End [place] [address] PCP - General 03/19/24 documented as of this encounter
--- OUTSIDE RECORDS SUMMARY | 2025-01-28 16:43 | XMS_ITS | Encounter Summary ---
Author Organization [facility] Address [address] [place] [address] Care Team Providers Care Pick Up Attendant Name Role Phone Patricia Recinos Primary Care Provider [phone] Ulysses Pal Primary Care Provider [phone] Araceli Rodriguez GM/SVP GLOBAL PUBLISHER BUSINESS Unavailable [phone] Venessa Tracy GUNITE NOZZLE OPERATOR Unavailable [phone] Reason for Visit * Reason Comments Prescription Assistance Encounter Details Date Type Department Care Team ([facility] st Contact Info) Description 08/21/2023 [facility] Orthopedic Surgery [address] [address] Tramaine Cox MD [address] [place] [address] Prescription Assistance Social History Tobacco Use Types Packs/Day Years [...] encounter Miscellaneous Notes * Telephone Encounter - Devon Lynn LVN LPN - 08/21/2023 4:22 PM EDT Pended to for approval * Telephone Encounter - Ayleen Hand - 08/21/2023 4:05 PM EDT Patient, Amber Castellanos 53 y.o. female, is calling with questions regarding Medication or it's usage. What is the medication you have questions about? Prednisone How are you currently taking it? Orally If currently taking, have you experienced issues or side effects? Unknown,hasn't received yet What is your question regarding this medication? Inquiring if it could be called in today Did our doctor prescribe this medication? yes What pharmacy would you like to use if there is a change in your medications? [facility] [address] documented in this encounter Plan of Treatment Upcoming Encounters Date Type Department Care Team (Latest Contact Info) Description 02/17/2025 1:00 PM EST Consult (Initial) [facility] [address] [place] [address] Mirna Butts NP [address] [place] [address] urinary freqancy, burning, incontinence, numbness, prolapse 03/04/2025 4:00 PM EST Office Visit [facility] Orthopedic Surgery [address] [facility] [address] [place] [phone] Ildefonso Knox MD [address] [place] [address] Sy TPI 3 month l/s 12/03 documented as of this encounter Visit Diagnoses Not on filedocumented in this encounter Care Teams Pick Up Attendant Relationship Specialty Start Date End Date Patricia Recinos [facility] [address] [address] PCP - General Family Medicine 08/08/23 12/27/23 Ulysses Pal PA [address] [place] [address] PCP - General Internal Medicine 12/28/23 Araceli Rodriguez, [facility] [address] [place] [address] Partner 02/11/24 Venessa Tracy NP [address] [place] [address] Partner 04/07/24 documented as of this encounter
--- OUTSIDE RECORDS SUMMARY | 2025-01-28 16:43 | XMS_ITS | Encounter Summary ---
Author Organization [facility] (historical information prior to 01/03/2025 only) Address [address] [place] [address] Care Team Providers Care Record Searcher Name Role Phone Patricia Recinos MD Primary Care Provider Encounter Details Date Type Department Care Team (Late st Contact Info) Description 01/29/2024 Telephone [facility] [address] [place] [address] Linda Raygoza PA [address] [place] [address] Social History Tobacco Use Types Packs/Day Years Used Date Smoking Tobacco: Never Smokeless Tobacco: Never Alcohol Use Standard Drinks/Week Comments No 0 (1 standard drink = 0.6 oz pur e alcohol) Depression Answer Date Recorded Feeling Down, Depressed, or Hopeless 2 02/10/2020 PHQ-9 Total Score 17 02/10/2020 [place] Scale Score: Not on file 0 Comments [...] * Telephone Encounter - Caryn Weston - 01/29/2024 10:58 AM EDT Pt spent overnight at [facility] ER for autoimmune disorder. Pt was told by ER to follow up with PCP. We have nothing until February 10. Pt says neuropathy is getting worse, leg heaviness caused her to collapse couldn't move this is what brought her to ER. Pt seeking advice. documented in this encounter Plan of Treatment Not on file documented as of this encounter Visit Diagnoses Not on filedocumented in this encounter Care Teams Record Searcher Relationship Specialty Start Date End Date Patricia Recinos MD [address] [place] [address] PCP - General Family Medicine 11/12/17 documented as of this encounter
--- OUTSIDE RECORDS SUMMARY | 2025-01-28 16:43 | XMS_ITS | Encounter Summary ---
Author Organization [facility] [place] (historical information prior to 01/03/2025 only) Address [address] [place] [address] Care Team Providers Care Briquetting Machine Operator Name Role Phone Patricia Recinos MD Primary Care Provider [phone] Encounter Details Date Type Department Care Team (Late st Contact Info) Description 08/16/2021 [facility] [address] [place] [id number] Patricia Recinos MD [address] [place] [address] Social History Tobacco Use Types Packs/Day [...] on filedocumented in this encounter Care Teams Briquetting Machine Operator Relationship Specialty Start Date End Date Patricia Recinos MD [address] [place] [address] PCP - General Family Medicine 11/12/17 documented as of this encounter
--- OUTSIDE RECORDS SUMMARY | 2025-01-28 16:43 | XMS_ITS | Encounter Summary ---
Author Organization [facility] (historical information prior to 01/03/2025 only) Address [address] [place] [address] Care Team Providers Care Search Strategist Name Role Phone Patricia Recinos MD Primary Care Provider [phone] Reason for Visit * Reason Onset Date Comments Med Refill 11/02/2021 Encounter Details Date Type Department Care Team ([facility] st Contact Info) Description 11/02/2021 Refill [facility] [address] [place] [address], [address] [place] [address] Caryn Oliveira PA [address] [place] [address], [address] [place] [address] Social History Tobacco Use Types Packs/Day Years Used Date Smoking Tobacco: Never Smokeless Tobacco: Never Alcohol Use Standard Drinks/Week Comments No 0 (1 standard drink = 0.6 oz pur e alcohol) Depression Answer Date Recorded Feeling Down, Depressed, or Hopeless 2 02/10/2020 PHQ-9 Total Score 17 02/10/2020 [place] Scale Score: Not on file 0 Comments [...] on filedocumented in this encounter Care Teams Search Strategist Relationship Specialty Start Date End Date Patricia Recinos MD [address] [place] [address], [facility] [address] [place] [address] PCP - General Family Medicine 11/12/17 documented as of this encounter
--- OUTSIDE RECORDS SUMMARY | 2025-01-28 16:43 | XMS_ITS | Encounter Summary ---
Author Organization [facility] (historical information prior to 01/03/2025 only) Address [address] [place] [address] Care Team Providers Care Systems Consultant Name Role Phone Patricia Recinos MD Primary Care Provider [phone] Reason for Visit * Reason Onset Date Comments Med Refill 07/16/2021 Encounter Details Date Type Department Care Team ([facility] st Contact Info) Description 07/16/2021 Refill [facility] [address] [place] [address], [address] [place] [address] Caryn Oliveira PA [address] [place] [address], [address] [place] [address] Social History Tobacco Use Types Packs/Day Years Used Date Smoking Tobacco: Never Smokeless Tobacco: Never Alcohol Use Standard Drinks/Week Comments No 0 (1 standard drink = 0.6 oz pur e alcohol) Depression Answer Date Recorded Feeling Down, Depressed, or Hopeless 2 02/10/2020 PHQ-9 Total Score 17 02/10/2020 [place] Scale Score: Not on file 0 Comments [...] suspected to have Coronavirus/COVID-19? No / Unsure 07/08/2021 2:29 PM EDT documented as of this encounter Plan of Treatment Not on file documented as of this encounter Visit Diagnoses Not on filedocumented in this encounter Care Teams Systems Consultant Relationship Specialty Start Date End Date Patricia Recinos MD [address] [place] [address] [address] [place] [id number] PCP - General Family Medicine 11/12/17 documented as of this encounter
--- OUTSIDE RECORDS SUMMARY | 2025-01-28 16:43 | XMS_ITS | Clinical Summary ---
Author Organization [facility] Address [address] [place] [address] Care Team Providers Care Car Supplier Name Role Phone Ulysses Pal Primary Care Provider [phone] Araceli Rodriguez VOYAGE MANAGEMENT SYSTEM OPERATOR Unavailable [phone] Venessa Tracy SUPERVISOR WORD PROCESSING Unavailable [phone] Allergies No known active allergies Medications * This document contains information received from the source organization and may not represent a complete record from that organization. Vitamin D3 (VITAMIN D-3) 25 MCG (1000 UT) capsule Take by mouth 1 (one) time each day. Active Cyclobenzaprine HCl (FLEXERIL) 10 MG tablet Take 10 mg by mouth if needed. 4 Active Estradiol (CLIMARA) 0.05 MG/24HR Active Eszopiclone (LUNESTA) 2 MG Tab Take 2 mg by mouth if needed. 4 Active DHEA (DHEA) 25 MG tablet Take by mouth 1 (one) time each day. Active Tretinoin (RETIN-A) 0.1 % cream 4 Active Ciclopirox 1 % Shampoo 4 Active Progesterone 200 MG Cap Take 200 mg by mouth 1 (one) time each day. 4 Active Thyroid (ARMOUR) 90 MG tablet Take 90 mg by mouth 1 (one) time each day Pt states she is taking 90 mgs daily. Active amLODIPine Besylate (NORVASC) 2.5 MG tablet Take 2.5 mg by mouth. 4 Active Acetaminophen-C odeine (TYLENOL #3) 300-30 MG per tablet Take 1 tablet by mouth every 6 (six) hours if needed for pain. Active Bromelains (Pineapple Extract) 100 MG Chew Tab Chew. Active cloNIDine HCl Powder Apply 1 Application topically. 5 Active Cyanocobalamin (VITAMIN B-12) 50 MCG tablet Take 50 mcg by mouth. Active famotidine (PEPCID) 20 MG tablet Take 1 tablet by mouth in the morning and at bedtime. 5 Active Naltrexone 50 MG tablet 1 (one) time each day Per pt takes half tab daily- total 25mgs. 5 Active [place] 3 (FISH OIL) 1000 MG Cap Take 2 g by mouth. Active buPROPion ER (WELLBUTRIN XL) 300 MG 24 hr tablet 1 (one) time each day. 5 Active Estradiol (VIVELLE-DOT) 0.025 MG/24HR 5 Active Aripiprazole (ABILIFY) 5 MG tablet Take 5 mg by mouth 1 (one) time each day. 5 Active Continuous Glucose Senior Property Accountant (FreeStyle Tino 3 [place]) Device Active LORazepam (ATIVAN) 0.5 MG tabletIndicatio ns:Anxiety Take one tablet to two tablets (0.5-1 mg total) by mouth 2 times daily As Needed. 120 tablet 5 Active Active Problems Problem Noted Date Diagnosed Date Moderate episode of recurrent major depressive d isorder 02/12/2024 MCTD (mixed connective tissue disease) ([facility]) 02/2024 Anxiety 07/28/2012 Anorexia 07/28/2012 Overview (08/30/2014): In remission for many yrs Psychiatrust Dr Tae Hicks, in [place], transffering care here Depression 07/16/2012 Resolved Problems Problem Noted Date Diagnosed Date Resolved Date Cord compression myelopathy 01/24/2024 01/24/2024 Sjogren syndrome with gastro intestinal involvement ([facility]) 01/11/2024 01/31/2024 Encounters Date Type Department Care Team Description 12/23/2024 Consult (Initial) [facility] [address] [place] [address] Hollis Townsend MD 12/23/2024 Minor Procedure/Test [facility] [address] [place], [place] [id number] [place] [address], Unknown Provider 12/20/2024 Refill [facility] [address] [place] [address] Hollis Esteban MD E-prescribing Refill Request 12/09/2024 Surgery/Major Procedure NON FC SA NON FC UNK Provider, Unknown 12/09/2024 Minor Procedure/Test [address] [address] [place], Unknown Provider 12/09/2024 Orders Only [address] [address] [place], Unknown Provider 12/09/2024 Minor Procedure/Test [facility] [address] [place], [place] [id number] [place] [address], Unknown Provider 12/09/2024 Telephone [facility] [address] [place], [place] [phone] [place] [address], Unknown Provider 12/04/2024 Telephone [facility] [address] [place], [place] [phone] [place] [address], Unknown Provider 12/04/2024 Office Visit NON FC SA [facility] [address] [place] [address] Delmy Marcus NP 12/03/2024 3:20 PM EDT Minor Procedure/Test [facility] Orthopedic Surgery [address] [place] [phone] Ildefonso Knox MD Radiculitis (Primary Dx); Coccyalgia 12/03/2024 [facility] NON FC SA [facility] [address] [place] [address] Delmy Marcus NP 11/27/2024 Minor Procedure/Test [address] [address] Roxanne Barrett DO [place], Unknown Provider 11/27/2024 Orders Only [facility] [address] [place] [address] Satnam Garcia 11/20/2024 3:20 PM EDT Erroneous Encounter [facility] [address] [place] [address] Chauncey Ugarte MD ERRONEOUS ENCOUNTER (Primary Dx) 11/19/2024 10:30 AM EDT Office Visit [address] [address] Christian Cotto PA Frequency of urination (Primary Dx); Chronic bilateral low back pain with sciatica, sciatica laterality unspecified 11/18/2024 Consult (Initial) [facility] [address] [place] [address] Saul Cruz MD 11/18/2024 Minor Procedure/Test [facility] [address] [place] [address] [facility], Unknown Provider 11/17/2024 Results Follow-Up [facility] [place] [address] [place] [address] Ulysses Pal PA CULTURE, URINE, ROUTINE, URINALYSIS, COMPLETE INCLUDES DIPSTICK AND MICROSCOPIC, CBC INCLUDES DIFFERENTIAL AND PLATELET COUNT, BASIC METABOLIC PANEL WITH (GFR) 11/14/2024 Orders Only [facility] [address] [place] [address] Ulysses Pal PA 11/14/2024 Orders Only [facility] [address] [place] [address] Satnam Garcia 11/13/2024 4:20 PM EDT Office Visit [facility] Orthopedic Surgery [address] [place] [phone] Liliya Arnold MD Common peroneal nerve dysfunction of left lower extremity (Primary Dx); Foot drop, left; Peroneal tendinitis, left 11/11/2024 Telephone [facility] Orthopedic Surgery [address] [place] [phone] Liliya Arnold MD ER F/U 11/09/2024 11:45 AM EDT Office Visit [facility] [address] [place] [phone] Can Fan NP Pain in both lower legs (Primary Dx) 11/01/2024 4:40 PM EDT Radiology [facility] [address] [place] [address] Spinal column pain 11/01/2024 4:20 PM EDT Radiology [facility] [address] [place] [address] Spinal column pain 11/01/2024 3:15 PM EDT Office Visit [facility] [address] [place] [address] Jhonny Kennedy, DO Spinal column pain (Primary Dx); Personal history of corticosteroid therapy 11/01/2024 Letter/Form RADIOLOGY UNSPECIFIED Provider, Unknown 11/01/[address] [address] Ulysses Pal PA Back Pain ; Numbness 10/29/2024 Telephone [facility] [address] [place] [address] Ulysses Pal PA Knee Pain from Last 3 Months Immunizations Immunization Administration Dates Next Due Hep B (adult) 11/06/2002 Td (adult), adsorbed 11/09/1995 Tdap - 10/17/2012 Family History Medical History Relation Name Comments Heart Disorder Maternal grandmother 73 Heart Disorder Mother No Known or Significant Medical History Other Heart Disorder Paternal grandmother Relation Name Status Comments Father Alive Maternal grandmother Mother Alive Other Paternal grandmother Sister Alive Social History Tobacco Use Types [...] AM EDT Sexual Orientation Not on file Last Filed Vital Signs Vital Sign Reading Time Taken Comments Blood Pressure 114/74 12/03/2024 3:11 PM EDT Pulse 101 12/03/2024 3:11 PM EDT Temperature 36.8 C (98.2 F) 12/03/2024 3:11 PM EDT Respiratory Rate 20 11/19/2024 10:50 AM EDT Oxygen Saturation 98% 11/19/2024 10:50 AM EDT Inhaled Oxygen Concentration - - Weight 54.4 kg (120 lb) 11/20/2024 3:56 PM EDT Height 167.6 cm (5' 6 ) 01/03/2024 1:10 PM EDT Body Mass Index 19.37 01/03/2024 1:10 PM EDT Plan of Treatment Upcoming Encounters Date Type Department Care Team (Latest Contact Info) Description 02/17/2025 1:00 PM EST Consult (Initial) [facility] [address] [place] [address] Mirna Butts NP [address] [place] [address] urinary freqancy, burning, incontinence, numbness, prolapse 03/04/2025 4:00 PM EST Office Visit [facility] Orthopedic Surgery [address] [place] [phone] Ildefonso Knox MD [address] [place] [address] Sy TPI 3 month l/s 12/03 Health Maintenance Due Date Last Done Comments Drug Screen for narcotic therapy 1988 Hep B (2 of 3 - 19+ 3-dose series) 12/04/2002 11/06/2002 Mammogram/Breast Imaging 05/23/2013 05/23/2012, 1012/1994 Colon Cancer Screening 06/22/2015 Pneumococcal 50+ years (1 of 1 - PCV) 2020 Zoster (Shingrix) (1 of 2) 2020 DTaP/Tdap/Td (2 - Td or Tdap) 10/17/2022 10/17/2012, 11/09/1995 Pap Smear 10/31/2023 10/30/2018, 09/30, 06/11/2001 COVID-19 Vaccine (2 - season) 2024 11/19/2020 Influenza (#1) 2024 Eye/Retina Exam Discontinued 03/24/1999, 12/31, 12/15/1994 Hepatitis C Screening Completed 09/27/2020 LDL Cholesterol Discontinued 07/26/2023, 07/02, 01/12/2022, Additional history exists Chest Imaging Discontinued 02/07/2024, 01/04/2024 EKG Discontinued 02/10/2024, 01/31, 02/06/2024, Additional history exists HPV Vaccine (No Doses Required) Completed Hep A Aged Out No longer eligi ble based on patient's age to complete this topic Hib Aged Out No longer eligi ble based on patient's age to complete this topic Meningococcal ACWY Aged Out No longer eligible based on patient's age to complete this topic Procedures * Due to [place] state law, this organization might not be sharing negative HIV tests. Procedure Name Priority Date/Time Associated Diagnosis Comments DIGITAL PRESSURES AND WAVEFORM ANALYSIS(DIG) 12/12/2024 11:59 AM EDT SEGMENTAL PRESSURE MEASUREMENTS AND PULSE VOLUME RECORDINGS, LOWER EXTREMITY 12/12/2024 11:59 AM EDT URINALYSIS AUTO W/MICROSCOPIC Routine 12/09/2024 7:52 PM EDT UNSPECIFIED MAJOR PROCEDURE 12/09/2024 INJECTION(S) OF DIAGNOSTIC OR THERAPEUTIC SUSTANCES(S), LUMBAR OR SACRAL W/IMAGE Routine 12/03/2024 3:52 PM EDT Radiculitis Coccyalgia BASIC METABOLIC PANEL WITH (GFR) Routine 11/27/2024 12:08 PM EDT Fibromyalgia CBC INCLUDES DIFFERENTIAL AND PLATELET COUNT Routine 11/27/2024 12:08 PM EDT Fibromyalgia URINALYSIS, DIP STICK/TABLET REAGENT; AUTOMATED, W/O MICROSCOPY Routine 11/19/2024 10:37 AM EDT Frequency of urination XR HIPS BILATERAL 5+ VW W PELVIS 11/18/2024 6:11 PM EDT URINALYSIS, COMPLETE INCLUDES DIPSTICK AND MICROSCOPIC Routine 11/14/2024 3:30 PM EDT Dysuria CULTURE, URINE, ROUTINE Routine 11/14/2024 3:[address] HEAD/ BRAIN W/O CONTRAST STAT (All results called to provider) 11/01/2024 4:43 PM EDT Spinal column pain CT CERVICAL SPINE W/O CONTRAST STAT (All results called to provider) 11/01/2024 4:42 PM EDT Spinal column pain ELECTROCARDIOGRAM, TRACING 02/10/2024 CT CHEST W/O CONTRAST Routine 01/04/2024 12:31 PM EDT Shortness of breath LIPID PROFILE Routine 10/29/2012 11:13 AM EDT PAP TEST Routine 10/17/2012 4:17 PM EDT MAMMOGRAPHY-UNILATER AL Routine 01/08/1995 1:15 PM EDT Lump or Mass in Breast from Last 3 Months or Most Recently Relevant to Health Maintenance Results * Due to [place] state law, this organization might not be sharing negative HIV tests. * DIGITAL PRESSURES AND WAVEFORM ANALYSIS(DIG) (12/12/2024 11:59 AM EDT) 12/12/2024 11:5 9 AM EDT Narrative [facility] RAD - 12/12/2024 11:59 AM EDT - Normal finger pressures on the right and left hand were consistent with normal arterial inflow to the digits. Table formatting from the original result was not included. Images from the original result were not included. [facility] Vascular Lab [address] [facility] [address] AmnaRober Procedures: Digital Pressures and Waveform Analysis (Finger Pressures) (Vasc Lab) Patient Patient : 1970 (54 y.o.) Gender Identity: Female Accession Number: [id number] Date of Study: 12/09/2024 Ordering Provider: Rajeev Esqueda MD Clinical Indications: Raynaud's disease without gangrene [I73.00 (ICD-10-CM)] [facility] Performing Staff Vascular Surgery: Anabel Elliott MD Tech: Faith Lunsford RVT Patient Class: Outpatient Upper extremity digit pressures and photoplethysmographic waveforms were obtained in the Vascular Laboratory. Interpretation Summary Result History is available. - Normal finger pressures on the right and left hand were consistent with normal arterial inflow to the digits. Tech Comments Comments Raynaud disease Findings DIGITAL PRESSURES AND WAVEFORM ANALYSIS Right Upper [...] Digit #5: normal; cuff size 1.6 cm Upper Extremity Doppler Measurements Right Pressure (mmHg) Right Index Left Pressure (mmHg) Left Index Brachial 123 mmHg 125 mmHg Digit 1 136 mmHg 1.11 133 mmHg 1.06 Digit 2 132 mmHg 1.07 143 mmHg 1.14 Digit 3 135 mmHg 1.1 137 mmHg 1.1 Digit 4 122 mmHg 0.99 125 mmHg 1 Digit 5 133 mmHg 1.08 130 mmHg 1.04 Signed at 1159 EDT Procedure Note [facility], Unknown Provider - 12/12/2024 - Normal finger pressures on the right and left hand were consistent withnormal arterial inflow to the digits. Table formatting from the original result was not included. Images from the original result were not included. [facility] V[facility] [address] [place] [address] Osbaldo Wooia Procedures: Digital Pressures and Waveform Analysis (Finger Pressures)(Vasc Lab) Patient Patient : 1970 (54 y.o.) Gender Identity: Female Accession Number: [id number] Date of Study: 12/09/2024 Ordering Provider: Rajeev Esqueda MD Clinical Indications: Raynaud's disease without gangrene [I73.00(ICD-10-CM)] [facility] Performing Staff Vascular Surgery: Anabel Elliott MD Tech: Faith Lunsford RVT Patient Class: Outpatient Upper extremity digit pressures and photoplethysmographic waveforms wereobtained in the Vascular Laboratory. Interpretation Summary Result History is available. - Normal finger pressures on the right and left hand were consistent withnormal arterial inflow to the digits. Tech Comments Comments Raynaud disease Findings DIGITAL PRESSURES AND WAVEFORM ANALYSIS Right Upper [...] Digit #5: normal; cuff size 1.6 cm Upper Extremity Doppler Measurements Right Pressure (mmHg) Right Index Left Pressure (mmHg) Left Index Brachial 123 mmHg 125 mmHg Digit 1 136 mmHg 1.11 133 mmHg 1.06 Digit 2 132 mmHg 1.07 143 mmHg 1.14 Digit 3 135 mmHg 1.1 137 mmHg 1.1 Digit 4 122 mmHg 0.99 125 mmHg 1 Digit 5 133 mmHg 1.08 130 mmHg 1.04 Signed at 1159 EDT us Unknown Provider [facility] CARDIOVASCULAR-NO INBASKET RTG Final Result [facility] [address] [place] [id number] * SEGMENTAL PRESSURE MEASUREMENTS AND PULSE VOLUME RECORDINGS, LOWER EXTREMITY (12/12/2024 11:59 AM EDT) 12/12/2024 11:5 9 AM EDT Narrative [facility] - 12/12/2024 11:59 AM EDT - The right ankle/brachial index and pulse volume recordings demonstrated no significant disease at rest. - The left ankle/brachial index and pulse volume recordings demonstrated no significant disease at rest. Table formatting from the original result was not included. Images from the original result were not included. [facility] Vascular Lab [address] [place] [id number] Rober Woo Procedures: Lower Extremity Segmental Pressure Measurements and Pulse Volume Recordings (Vasc Lab) Patient Patient : 1970 (54 y.o.) Gender Identity: Female Accession Number: [id number] Date of Study: 12/09/2024 Ordering Provider: Rajeev Esqueda MD Clinical Indications: Raynaud's disease without gangrene [I73.00 (ICD-10-CM)] [facility] Performing Staff Vascular Surgery: Anabel Elliott MD Tech: Faith Lunsford RVT Patient Class: Outpatient Segmental Doppler pressures and Pulse Volume Recordings of the lower extremities were obtained in the Vascular Laboratory. Interpretation Summary Result History is available. - The right ankle/brachial index and pulse volume recordings demonstrated no significant disease at rest. - The left ankle/brachial index and pulse volume recordings demonstrated no significant disease at rest. Tech Comments Comments Raynaud disease Findings Segmental Pressure Measurements and Pulse Volume Recordings Lower Right Lower Extremity: Severity of Arterial Insufficiency by LYNDON: normal Left Lower Extremity: Severity of Arterial Insufficiency by LYNDON: normal Lower Extremity Pressure Measurements Right Pressure (mmHg) Right Index Left Pressure (mmHg) Left Index Brachial 121 mmHg 120 mmHg Ankle @ DP 152 mmHg 1.26 152 mmHg 1.26 Ankle @ PT 144 mmHg 1.19 144 mmHg 1.19 Signed at 1159 EDT Procedure Note [facility], Unknown Provider - 12/12/2024 - The right ankle/brachial index and pulse volume recordings demonstratedno significant disease at rest. - The left ankle/brachial index and pulse volume recordings demonstratedno significant disease at rest. Table formatting from the original result was not included. Images from the original result were not included. [facility] [address] [facility] [address] Rober Woo Procedures: Lower Extremity Segmental Pressure Measurements and PulseVolume Recordings (Vasc Lab) Patient Patient : 1970 (54 y.o.) Gender Identity: Female Accession Number: [id number] Date of Study: 12/09/2024 Ordering Provider: Rajeev Esqueda MD Clinical Indications: Raynaud's disease without gangrene [I73.00(ICD-10-CM)] [facility] Performing Staff Vascular Surgery: Anabel Elliott MD Tech: Faith Lunsford RVT Patient Class: Outpatient Segmental Doppler pressures and Pulse Volume Recordings of the lowerextremities were obtained in the Vascular Laboratory. Interpretation Summary Result History is available. - The right ankle/brachial index and pulse volume recordings demonstratedno significant disease at rest. - The left ankle/brachial index and pulse volume recordings demonstratedno significant disease at rest. Tech Comments Comments Raynaud disease Findings Segmental Pressure Measurements and Pulse Volume Recordings Lower RightLower Extremity: Severity of Arterial Insufficiency by LYNDON: normal Left Lower Extremity: Severity of Arterial Insufficiency by LYNDON: normal Lower Extremity Pressure Measurements Right Pressure (mmHg) Right Index Left Pressure (mmHg) Left Index Brachial 121 mmHg 120 mmHg Ankle @ DP 152 mmHg 1.26 152 mmHg 1.26 Ankle @ PT 144 mmHg 1.19 144 mmHg 1.19 Signed at 1159 EDT us Unknown Provider [facility] CARDIOVASCULAR-NO INBASKET RTG Final Result [facility] ONE [address] [place] [phone] * URINALYSIS AUTO W/MICROSCOPIC (12/09/2024 7:52 PM EDT) Color (Urine) Yellow [facility] Appearance (Urine) Clear [facility] pH (Urine) 6.0 5.0 - 8.0 [facility] Specific gravity (Urine) 1.005 1.002 - 1.035 [facility] Protein (Urine) Negative <30 [facility] Glucose (Urine) Negative <50 [facility] Ketones (Urine) Negative <5 [facility] Hemoglobin (Urine) Negative Negative [facility] Nitrite (Urine) Negative Negative [facility] Bilirubin (Urine) Negative Negative [facility] Urobilinogen (Urine) 0.2 0.2 - 1.0 E.U/dL [facility] Leukocyte esterase (Urine) Negative Negative [facility] 12/09/2024 7:52 PM EDT us Unknown Provider [place] LABORATORY Final R esult [facility] [address] [place] [address] * UNSPECIFIED MAJOR PROCEDURE (12/09/2024) us Unknown Provider PROCEDURES Final Result * (ABNORMAL) CBC INCLUDES DIFFERENTIAL AND PLATELET COUNT (11/27/2024 12:08 PM EDT) Pathologist [facility] [place] WBC 7.1 3.8 - 10.8 Thousand/ uL [...] 11:41 PM EDT Narrative Resulting Agency Comment [id number] Hollis Esteban MD LAB SAME DAY RESULT Final Res ult [facility] [address] [place] [address] * BASIC METABOLIC PANEL WITH (GFR) (11/27/2024 12:08 PM EDT) Pathologist [facility] [place] Glucose 93 65 - 99 mg/dL [facility] [...] needs for GFR calculation. Resulting Agency Comment [id number] us Hollis Esteban MD LABORATORY Final Result Performing Organization Address [facility]/ZIP Co de Phone Number [facility] [address] [place] [address] * [facility] URINALYSIS (11/19/2024 10:37 AM EDT) Color (Urine) Yellow [facility] Clarity Clear Clear [facility] Leukocyte Negative Negative [facility] Nitrite Negative Negative [facility] Urobilinogen (Urine) 0.2 0-1 E.U./dL [facility] Protein Negative Negative [facility] PH (Urine) 6.5 5.0 - 8.0 [facility] Blood (Urine) Negative Negative [facility] Specific [place] (Urine) 1.015 1.005 - 1.030 [facility] Ketones (Urine) Negative Negative [facility] Bilirubin (Urine) Negative Negative [facility] Glucose (Urine) Negative Negative [facility] 11/19/2024 10:3 7 AM EDT 11/19/2024 10:37 AM EDT Narrative [facility] - 11/19/2024 10:37 AM EDT #:[id number] Location:[facility] us Jaswant Khan MD LAB SAME DAY RESULT Final Result Performing Organization Address [facility] de Phone Number [facility] * XR HIPS BILATERAL 5+ VW W PELVIS (11/18/2024 6:11 PM EDT) Anatomical Region Laterality Modality Other 11/18/2024 6:11 PM EDT Narrative 11/18/2024 6:11 PM EDT COMPARISON: None. IMPRESSION: FINDINGS/IMPRESSION: No radiographic findings [...] to obtain the completed interpretation. Workstation ID: [id number]' [id number] Procedure Note [facility], Unknown Provider - 11/18/2024 COMPARISON: None. IMPRESSION: FINDINGS/IMPRESSION: No radiographic findings of acute fracture or dislocation. Mild hiposteoarthritis. Degenerative changes lower lumbar spine, sacroiliac jointsand pubic symphysis. Sacrum partly obscured. Soft tissues unremarkable. If this radiology report contains a blank impression section, it is anincomplete radiology report. Please contact the interpreting radiologistor applicable radiology division as soon as possible to obtain thecompleted interpretation. Workstation ID: [id number]' [id number] us Unknown Provider [facility] Final Resu lt * CULTURE, URINE, ROUTINE (11/14/2024 3:30 PM EDT) Bacteria Identified (Urine) SEE NOTE [facility] Comment: CULTURE, URINE, ROUTINE Micro Number: [id number] Test Status: Final Specimen Source: Urine Specimen Quality: Adequate Result: Less than 10,000 CFU/mL of single Gram negative organism isolated. No further testing will be performed. If clinically indicated, recollection using a method to minimize contamination, with prompt transfer to Urine Culture Transport Tube, is recommended. 11/14/2024 3:30 PM EDT 11/14/2024 3:30 PM EDT Narrative [facility] - 11/17/2024 8:01 AM EDT Patient's primary care provider is: N/A Testing performed at: [facility], [address] [place] [address], [phone], Logistics Account Manager: TOPHER SHIRLEY MD us Hollis Esteban MD LABORATORY Final Result [facility] [address] [place] [address] * (ABNORMAL) URINALYSIS, COMPLETE INCLUDES DIPSTICK AND [...] PM EDT 11/14/2024 3:30 PM EDT Narrative [facility] - 11/14/2024 4:05 PM EDT Patient's primary care provider is: N/A Testing performed at: [facility], [address] [place] [address], [id number], Logistics Account Manager: Quyen Allen MD us Hollis Esteban MD LAB SAME DAY RESULT Final Res ult [address] Quyen Allen MD * CT HEAD/ BRAIN W/O CONTRAST (11/01/2024 4:43 PM EDT) Anatomical Region Laterality Modality HEAD/BRAIN Computed Tomogra phy Narrative 11/01/2024 4:55 PM EDT Patient History: headache, spine pain after injury - r/o bleed/hematoma CONTRAST: CT head without contrast Comparison: None Findings: No intracranial mass, midline shift, hydrocephalus, or acute hemorrhage. No CT evidence of acute ischemia. Visualized paranasal sinuses and mastoid air cells normal. Orbits unremarkable. No skull fracture Impression: 1. No acute intracranial abnormalities. Procedure Note Zachariah Hernández MD - 11/01/2024 Patient History: headache, spine pain after injury - r/o bleed/hematoma CONTRAST: CT head without contrast Comparison: None Findings: No intracranial mass, midline shift, hydrocephalus, or acute hemorrhage.No CT evidence of acute ischemia. Visualized paranasal sinuses and mastoid air cells normal. Orbits unremarkable. No skull fracture Impression: 1. No acute intracranial abnormalities. us Jhonny Brent DO IMG CT NO CONTRAST ORDERABLES Fi nal Result * CT CERVICAL SPINE W/O CONTRAST (11/01/2024 4:42 PM EDT) Anatomical Region Laterality Modality Spine Computed Tomogra phy Narrative 11/01/2024 4:54 PM EDT Patient History: neck pain s/p epidural shot. concerning for hematoma CONTRAST: CT cervical spine without contrast Comparison: None Findings: Normal limited view of the intracranial contents. Soft tissues of the neck are normal. No definable circumscribed collection or evidence of hematoma appreciated. No gross abnormal epidural or paraspinal soft tissue is appreciated. Lung apices are normal. Normal vertebral body alignment. No fractures or dislocations. There are mild cervical degenerative disc changes C4-C6.. Impression: 1. No definable collections or evidence of hematoma appreciated. If unexplained symptoms persist, consider MRI. Procedure Note Zachariah Hernández MD - 11/01/2024 Patient History: neck pain s/p epidural shot. concerning for hematoma CONTRAST: CT cervical spine without contrast Comparison: None Findings: Normal limited view of the intracranial contents. Soft tissues of the neckare normal. No definable circumscribed collection or evidence of hematomaappreciated. No gross abnormal epidural or paraspinal soft tissue isappreciated. Lung apices are normal. Normal vertebral body alignment. No fractures or dislocations. There aremild cervical degenerative disc changes C4-C6.. Impression: 1. No definable collections or evidence of hematoma appreciated. Ifunexplained symptoms persist, consider MRI. us Jhonny Kennedy DO IMG CT NO CONTRAST ORDERABLES Fi nal Result * ELECTROCARDIOGRAM, TRACING (02/10/2024) Narrative 02/10/2024 Ordered by an unspecified provider. Procedure Note Twila Avelar Provider - 02/10/2024 4:48 PM EST [facility] [address] [place] [address] Electrocardiograph Report Signed Patient: Rober Woo MR# [id number] : 1970Acct:[id number] Age/Sex: 53 / F ADMDate: 02/10/24 Loc: ED Attending Dr: Ordering Physician: Ulysses Calvo Date of Service: 02/10/24 Procedure(s): EKG 12 lead Accession Number(s): [id number] cc: Ulysses Calvo; Ulysses GALLO~ Test Reason : BACK PAIN NUMB Blood Pressure : */* mmHG Vent. Rate : 75 BPM Atrial Rate : 75 BPM P-R Int : 148 ms QRS Dur : 72 ms QT Int : 388 ms P-R-T Axes : 75 81 66 degrees QTc Int : 433 ms NORMAL SINUS RHYTHM NORMAL ECG WHEN COMPARED WITH ECG OF 05-FEB-2024 17:22, NO SIGNIFICANT CHANGE WAS FOUND Confirmed by ALONDRA DOE ([id number]) on 02/10/2024 4:47:23 PM Referred By: Confirmed By: ALONDRA DOE Acquiring Tech: CD Dictated By: Alondra Doe DO Signed By: <Electronically signed by Alondra Doe DO in OV> 02/10/24 1647 Unknown Provider [place] CARDIOVASCULAR-NO INBAS KET RTG Final Result * CT CHEST W/O CONTRAST (01/04/2024 12:31 PM EDT) Anatomical Region Laterality Modality CHEST Computed Tomogra phy Narrative 01/07/2024 11:32 AM EDT Patient History: progressive shortness of breath, hx autoimmune disease eval for interstitial lung disease CONTRAST: Noncontrast CT of the chest Technique: Axial CT images from the lung apices through the adrenal glands, no contrast. Sagittal and coronal reconstruction images provided. Comparison: None Findings: Normal caliber thoracic aorta. No aneurysm. Moderate coronary artery calcifications. No mediastinal or axillary adenopathy. Normal lungs. No pulmonary nodules. No areas of consolidation. No pneumothorax. Normal bones. Normal limited upper abdomen. Impression: Normal lungs. Moderate coronary artery calcifications Procedure Note Yassine Lopez MD - 01/07/2024 Patient History: progressive shortness of breath, hx autoimmune diseaseeval for interstitial lung disease CONTRAST: Noncontrast CT of the chest Technique: Axial CT images from the lung apices through the adrenalglands, no contrast. Sagittal and coronal reconstruction images provided. Comparison: None Findings: Normal caliber thoracic aorta. No aneurysm. Moderate coronary artery calcifications. No mediastinal or axillary adenopathy. Normal lungs. No pulmonary nodules. No areas of consolidation. Nopneumothorax. Normal bones. Normal limited upper abdomen. Impression: Normal lungs. Moderate coronary artery calcifications Ulysses GALLO IMG CT NO CONTRAST ORDERABL ES Final Result * LIPID PROFILE (10/29/2012 11:13 AM EDT) Cholesterol 186 0 - 199 mg/dL 10/29/2012 6:42 PM EDT [facility] Cholesterol.in HDL 78 >40 mg/dL 10/29/2012 6:42 PM EDT [facility] Comment: NCEP GUIDELINES Desirable Borderline Undesirable HDL cholesterol Above 60 40 - 59 Below 40 Chol/HDL Ratio 2.38 0.00 - 4.90 10/29/2012 6:42 PM EDT [facility] LDL 86 0 - 130 mg/dL 10/29/2012 6:42 PM EDT [facility] Triglyceride 112 0 - 149 mg/dL 10/29/2012 6:42 PM EDT [facility] Fasting Status Random 10/29/2012 6:42 PM EDT [facility] 10/29/2012 11:1 3 AM EDT 10/29/2012 11:13 AM EDT us Alireza Daniel MD LABORATORY Final Result Performing Organization Address [facility] Co de Phone Number [facility] * PAP TEST (10/17/2012 4:17 PM EDT) PAP Smear [facility] 10/23/2012 9:39 PM EDT [facility] Comment: GENERAL CATEGORY: NEGATIVE FOR INTRAEPITHELIAL LESION OR MALIGNANCY. . SPECIMEN ADEQUACY: Satisfactory for evaluation. Transformation zone component present. . INTERPRETATION/RESULTS: Fungal organisms morphologically consistent with Mary spp. . APAGC/APAGC Specimen(s)/SILK FINISHER Information: THINPREP CERVICAL/ENDOCERVICAL, 20 cc of fluid Total # of Slides/Specimen: 1 RELATED LABORATORY RESULTS Ord Date: 10/17/2012 Test Name Collected Result Abnormal Range HPV high 10/17/2012 Negative Negative risk The slide was processed by the ThinPrep Imaging System, and was rescreened or reviewed by a preventive maintenance engineer Screened by: MICHAELA FAYE, SIGNED OUT BY ELECTRONIC Steam And Power Superintendent SIGNATURE Signed Out by: MICHAELA FAYE Steam And Power Superintendent Date Reported: 10/23/2012 ROBER CASTELLANOS [id number] GYNECOLOGIC CYTOLOGY REPORT Printed: 10/23/2012 6:18 PM Page 1 of 1 10/17/2012 4:17 PM EDT 10/17/2012 4:17 PM EDT us Prema Espinoza NP PATHOLOGY Final Result [facility] * MAMMOGRAPHY-UNILATERAL (01/08/1995 1:15 PM EDT) RADIOLOGY REPORT Procedure ID: [id number] MAMMO UNI LEFT MAMMOGRAM: This study was done to supplement an ultrasound examination which was ordered for evaluation of a mass in the upper outer posterior portion of the left breast which occurred following excision of a fibroadenoma. The breast tissue is quite dense which limits sensitivity. A thin wire is placed on the cutaneous incision. No distinctly separable mass is seen on two views. There is some density underlying the wire on the MLO view which could correspond to the mass-like lesion seen on ultrasound although it is not clearly defined as a mass on mammography. There are no suspicious calcifications or skin or nipple changes. IMPRESSION: No radiographic evidence of malignancy. A letter (A) in lay language describing results will follow this report. [facility] and Medicare regulations state that this report must be given to the patient. [facility] (CLIA# [id number]) LETTER SENT A mammogram letter type #A was printed on 03/23/1995 [facility] (CLIA# [id number]) Anatomical Region Laterality Modality Other 01/08/1995 1:15 PM EDT Narrative 01/10/1995 1:41 PM EDT Reason for Study/History: MAMMOGRAM FOLLOWING U/S FIBROADENOMA REMOVED IN SEPT. DARK BLOOD FROM NIPPLE X 1 WEEK. Test(s) processed by : [facility] Sofia Youngblood MD GENERAL IMAGING- OTHER Final R esult from Last 3 Months or Most Recently Relevant to Health Maintenance Insurance MEDICARE PART B MEDICAID MEDICARE PART B MEDICAID Care Teams Car Supplier Relationship Specialty Start Date End Date Ulysses Pal PA [address] [place] [address] PCP - General Internal Medicine 12/28/23 Araceli Rodriguez, [facility] [address] [facility] [place] [address] Partner 02/11/24 Venessa Tracy NP [address] [place] [address] Partner 04/07/24
--- OUTSIDE RECORDS SUMMARY | 2025-01-28 16:43 | XMS_ITS | Encounter Summary ---
Author Organization [facility] (historical information prior to 01/03/2025 only) Address [address] [place] [address] Care Team Providers Care Core Drill Operator Name Role Phone Patricia Recinos MD Primary Care Provider [phone] Reason for Visit * Reason Onset Date Comments Med Refill 03/03/2020 Encounter Details Date Type Department Care Team ([facility] st Contact Info) Description 03/03/2020 Refill [facility] [address] [place] [address], [address] [place] [address] Caryn Oliveira PA [address] [place] [address], [address] [place] [address] Social History Tobacco Use Types Packs/Day Years Used Date Smoking Tobacco: Never Smokeless Tobacco: Never Alcohol Use Standard Drinks/Week Comments No 0 (1 standard drink = 0.6 oz pur e alcohol) Depression Answer Date Recorded Feeling Down, Depressed, or Hopeless 2 02/10/2020 PHQ-9 Total Score 17 02/10/2020 Coy Scale Score: Not on file 0 Comments [...] or suspected to have Coronavirus / COVID-19? No / Unsure 02/10/2020 4:37 PM EST documented as of this encounter Plan of Treatment Not on file documented as of this encounter Visit Diagnoses Not on filedocumented in this encounter Care Teams Core Drill Operator Relationship Specialty Start Date End Date Patricia Recinos MD [address] [place] [address], [address] [place] [address] PCP - General Family Medicine 11/12/17 documented as of this encounter
== END 2025-01-28 14:03 | disposition home or self-care (01) ==
LOC: HO.HNS 13:06
PROVIDERS: Visit Provider Physician Assistant
DX: M79.604 Pain in right leg (principal); M79.605 Pain in left leg
CPT/HCPCS: 99205

== ENCOUNTER → 2025-01-28 13:05 | Outpatient (BNVA) | payer MEDICARE, MEDICAID, SELFPAY | PROVIDERS: Visit Provider Physician Assistant | DX: M79.605 Pain in left leg (principal); M79.604 Pain in right leg | CPT/HCPCS: 99202 ==